=== PATIENT | female | born 1995 | race Caucasian/White ===

== ENCOUNTER 2023-01-07 08:26 | Outpatient (OUT) | payer OTHER, SELFPAY ==
[2023-01-07 09:22] LABS: Estimated Average Glucose 103 mg/dL; Glycohemoglobin A1C 5.2 % (4.5-6.2)
[2023-01-07 09:34] LABS: Basophils Percent Auto 0.5 % (0.2-2.0); Eosinophils Absolute Auto 0.2 10^3/uL (0.0-0.7); Eosinophils Percent Auto 2.4 % (0.9-7.0); Hematocrit 35.3 % (36.0-48.0); Hemoglobin 11.3 g/dL (12.0-16.0); Immature Granulocytes Abs Auto 0.02 10^3/uL (0.00-0.03); Immature Granulocytes Pct Auto 0.2 % (0.0-0.5); Lymphocytes Percent Auto 24.4 % (20.5-60.0); Mean Corpuscular Hemoglobin 28.8 pg (26.7-34.0); Mean Corpuscular Volume 89.8 fL (81.0-99.0); Mean Platelet Volume 10.1 fL (9.5-13.5); Monocytes Absolute Auto 0.8 10^3/uL (0.3-0.8); Monocytes Percent Auto 9.4 % (1.7-12.0); Neutrophils Absolute Auto 5.2 10^3/uL (1.4-6.5); Neutrophils Percent Auto 63.1 % (43.0-75.0); Platelet Count 311 10^3/uL (150-450); Red Blood Count 3.93 10^6/uL (4.20-5.40); Red Cell Distribution Width 14.7 % (11.0-15.0); White Blood Count 8.3 10^3/uL (4.0-11.0)
[2023-01-07 09:54] LABS: Alanine Aminotransferase 33 U/L (14-59); Albumin Level 3.7 g/dL (3.4-5.0); Alkaline Phosphatase 98 U/L (46-116); Anion Gap 13.6; Aspartate Amino Transferase 21 U/L (15-37); BUN Creatinine Ratio 12.7; Bilirubin Total 1.1 mg/dL (0.2-1.0); Calcium 8.5 mg/dL (8.5-10.1); Chloride 105 mmol/L (98-107); Estimated GFR (African America >60 (>=60); Estimated GFR (Non-African Ame >60 (>=60); Globulin 3.7 g/dL; Glucose 91 mg/dL (74-106); Potassium 4.6 mmol/L (3.5-5.1); Sodium 139 mmol/L (136-145); Thyroid Stimulating Hormone 4.867 uIU/mL (0.358-3.740); Total Protein 7.4 g/dL (6.4-8.2)
[2023-01-07 10:10] LABS: Free T4 0.86 ng/dL (0.76-1.46)
== END 2023-01-07 08:27 | disposition home or self-care (01) ==
LOC: LAB 08:31
PROVIDERS: PCP Family Medicine; Visit Provider Family Medicine
DX: R53.83 Other fatigue (principal); E03.9 Hypothyroidism, unspecified; R73.09 Other abnormal glucose
CPT/HCPCS: 36415; 80053; 83036; 84439; 84443; 85025

== ENCOUNTER 2023-04-15 13:40 | Outpatient (OUT) | payer OTHER, SELFPAY ==
[2023-04-15 14:36] LABS: Free T4 1.43 ng/dL (0.76-1.46)
[2023-04-15 14:41] LABS: Thyroid Stimulating Hormone 0.096 uIU/mL (0.358-3.740)
== END 2023-04-15 13:41 | disposition home or self-care (01) ==
PROVIDERS: PCP Family Medicine; Visit Provider Family Medicine
DX: R53.83 Other fatigue (principal); E03.9 Hypothyroidism, unspecified; R73.09 Other abnormal glucose
CPT/HCPCS: 36415; 80053; 83036; 84439; 84443

== ENCOUNTER 2023-04-19 16:58 | Outpatient (OUT) | payer OTHER, SELFPAY ==
--- NOTE | 2023-04-19 17:01 | US_ITS ---
The [address] [address] Patient Name: FARHAD BEY MRN: [id number] date: 1995 Sex: F Assigned Patient Location: [place] Current Patient Location: Accession/Order Number: [id number] Exam Date: 04/19/2023 17:10 Report Date: 04/20/2023 07:30 At the request of: YAHIR FENG Procedure: US thyroid EXAMINATION: US thyroid HISTORY: OTHER SOFT TISSUE SPECIFIED DISORDERS M79.89 COMPARISON: No relevant comparison available. TECHNIQUE: Sonographic images of the thyroid gland were obtained. FINDINGS: The right thyroid lobe is normal in size mildly lobular in contour with heterogeneous echotexture. No focal nodules. The right thyroid lobe measures 4.5-1 0.1 x 1.5 cm. The thyroid isthmus measures 2.6 mm, heterogeneous, no focal nodule. The left thyroid lobe measures 3.6 x 1.3 x 1.1 cm. Heterogeneous echotexture with 2 focal nodules, one nodule over 5 mm. Nodule 1:0.9 x 0.8 x 0.8 cm. Solid, hypoechoic, wide, smooth margins, no calcifications. TR 4 In the region of the patient's palpable abnormality is a normal size normal morphology submandibular lymph node measuring 3.0 x 0.5 x 1.6 cm. US/US thyroid IMPRESSION: Normal size normal morphology lymph node corresponding to the patient's palpable abnormality Heterogeneous thyroid gland with 2 left thyroid subcentimeter TR 4 nodules TI-RADS: The [employer] TI-RADS committee's white paper recommendations for thyroid lesions classified as TR4 (moderately suspicious) are listed below: > 1.0 cm. Follow-up ultrasound in 1, 2, 3, and 5 years. > 1.5 cm. FNA. J. Am Rex Radiol 2017;14:587-595. Electronically authenticated by: ROLANDO JOHNSON Date: 04/20/2023 07:30
== END 2023-04-19 16:59 | disposition home or self-care (01) ==
LOC: US 16:58
PROVIDERS: PCP Family Medicine; Visit Provider Family Medicine
DX: M79.89 Other specified soft tissue disorders (principal)
CPT/HCPCS: 76536

== ENCOUNTER 2023-09-06 15:31 | Outpatient (OUT) | payer OTHER, SELFPAY ==
[2023-09-06 15:53] LABS: Basophils Percent Auto 0.6 % (0.2-2.0); Eosinophils Percent Auto 0.6 % (0.9-7.0); Hematocrit 36.2 % (36.0-48.0); Hemoglobin 11.6 g/dL (12.0-16.0); Immature Granulocytes Abs Auto 0.01 10^3/uL (0.00-0.03); Immature Granulocytes Pct Auto 0.2 % (0.0-0.5); Lymphocytes Absolute Auto 1.8 10^3/uL (1.2-3.8); Lymphocytes Percent Auto 38.8 % (20.5-60.0); Mean Corpuscular Hemoglobin 27.8 pg (26.7-34.0); Mean Corpuscular Volume 86.6 fL (81.0-99.0); Mean Platelet Volume 10.4 fL (9.5-13.5); Monocytes Absolute Auto 0.9 10^3/uL (0.3-0.8); Monocytes Percent Auto 18.2 % (1.7-12.0); Neutrophils Absolute Auto 1.9 10^3/uL (1.4-6.5); Neutrophils Percent Auto 41.6 % (43.0-75.0); Platelet Count 264 10^3/uL (150-450); Red Blood Count 4.18 10^6/uL (4.20-5.40); Red Cell Distribution Width 14.4 % (11.0-15.0); White Blood Count 4.7 10^3/uL (4.0-11.0)
[2023-09-06 16:21] LABS: Estimated Average Glucose 103 mg/dL; Glycohemoglobin A1C 5.2 % (4.5-6.2)
[2023-09-06 16:32] LABS: Free T4 2.25 ng/dL (0.76-1.46)
[2023-09-06 16:36] LABS: Alanine Aminotransferase 30 U/L (14-59); Albumin Level 3.5 g/dL (3.4-5.0); Alkaline Phosphatase 85 U/L (46-116); Anion Gap 13.6; Aspartate Amino Transferase 30 U/L (15-37); BUN Creatinine Ratio 13.8; Bilirubin Total 0.6 mg/dL (0.2-1.0); Calcium 8.7 mg/dL (8.5-10.1); Carbon Dioxide 24.8 mmol/L (21.0-32.0); Chloride 103 mmol/L (98-107); Estimated GFR (African America >60 (>=60); Estimated GFR (Non-African Ame >60 (>=60); Free T3 4.46 pg/mL (2.18-3.98); Globulin 3.5 g/dL; Glucose 91 mg/dL (74-106); Potassium 3.4 mmol/L (3.5-5.1); Sodium 138 mmol/L (136-145); Thyroid Stimulating Hormone 0.025 uIU/mL (0.358-3.740)
== END 2023-09-06 15:32 | disposition home or self-care (01) ==
LOC: LAB 15:31
PROVIDERS: PCP Family Medicine; Visit Provider Family Medicine
DX: R42 Dizziness and giddiness (principal); R53.83 Other fatigue; L65.9 Nonscarring hair loss, unspecified
CPT/HCPCS: 36415; 80053; 83036; 84439; 84443; 84481; 85025

== ENCOUNTER 2023-10-27 08:40 | Outpatient (OUT) | payer OTHER, SELFPAY ==
[2023-10-27 09:13] LABS: Basophils Percent Auto 0.5 % (0.2-2.0); Eosinophils Absolute Auto 0.1 10^3/uL (0.0-0.7); Eosinophils Percent Auto 1.2 % (0.9-7.0); Hematocrit 33.3 % (36.0-48.0); Hemoglobin 10.6 g/dL (12.0-16.0); Immature Granulocytes Abs Auto 0.01 10^3/uL (0.00-0.03); Immature Granulocytes Pct Auto 0.2 % (0.0-0.5); Lymphocytes Absolute Auto 1.4 10^3/uL (1.2-3.8); Lymphocytes Percent Auto 21.2 % (20.5-60.0); Mean Corpuscular HGB Conc 31.8 g/dL (29.9-35.2); Mean Corpuscular Hemoglobin 27.7 pg (26.7-34.0); Mean Corpuscular Volume 87.2 fL (81.0-99.0); Mean Platelet Volume 10.7 fL (9.5-13.5); Monocytes Absolute Auto 0.8 10^3/uL (0.3-0.8); Monocytes Percent Auto 12.4 % (1.7-12.0); Neutrophils Absolute Auto 4.3 10^3/uL (1.4-6.5); Neutrophils Percent Auto 64.5 % (43.0-75.0); Platelet Count 241 10^3/uL (150-450); Red Blood Count 3.82 10^6/uL (4.20-5.40); Red Cell Distribution Width 15.7 % (11.0-15.0); White Blood Count 6.6 10^3/uL (4.0-11.0)
[2023-10-27 10:42] LABS: Estimated Average Glucose 100 mg/dL; Glycohemoglobin A1C 5.1 % (4.5-6.2)
[2023-10-27 10:58] LABS: Free T4 0.98 ng/dL (0.76-1.46)
[2023-10-27 11:11] LABS: Alanine Aminotransferase 25 U/L (14-59); Albumin Globulin Ratio 0.9; Albumin Level 3.3 g/dL (3.4-5.0); Alkaline Phosphatase 95 U/L (46-116); Anion Gap 12.2; Aspartate Amino Transferase 21 U/L (15-37); Bilirubin Total 0.7 mg/dL (0.2-1.0); Calcium 8.6 mg/dL (8.5-10.1); Carbon Dioxide 25.7 mmol/L (21.0-32.0); Chloride 106 mmol/L (98-107); Estimated GFR (African America >60 (>=60); Estimated GFR (Non-African Ame >60 (>=60); Globulin 3.8 g/dL; Glucose 89 mg/dL (74-106); Phosphorus 4.2 mg/dL (2.6-4.7); Potassium 3.9 mmol/L (3.5-5.1); Sodium 140 mmol/L (136-145); Total Protein 7.1 g/dL (6.4-8.2)
== END 2023-10-27 08:41 | disposition home or self-care (01) ==
LOC: LAB 08:42
PROVIDERS: PCP Family Medicine; Visit Provider Family Medicine
DX: R53.83 Other fatigue (principal); D64.9 Anemia, unspecified; E03.9 Hypothyroidism, unspecified
CPT/HCPCS: 36415; 80053; 82306; 82607; 82728; 82746; 83036; 83540; 83735; 84100; 84439; 84443; 85025

== ENCOUNTER 2023-12-07 20:39 | Outpatient (OUT) | payer OTHER, SELFPAY ==
--- OUTSIDE RECORDS SUMMARY | 2023-12-07 20:52 | XMS_ITS ---
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 0.0-0.7 [facility] Comment on above: Performed By: #### F ERR, IRON, B12FOL, VITAD #### [facility] [address] [place] [address] Dr. Mishel Shine Eosinophils/100 WBC (Bld) 1.1 % Normal 0.9-7.0 [facility] Comment on above: Performed By: #### F ERR, IRON, B12FOL, VITAD #### [facility] [address] [place] [address] Dr. Mishel Shine Erythrocyte distribution width (RBC) [Ratio] 13.2 % Normal 11.0-15.0 [facility] Comment on above: Performed By: #### F ERR, IRON, B12FOL, VITAD #### [facility] [address] [place] [address] Dr. Mishel Shine Hematocrit (Bld) [Volume fraction] 34.7 % Critically low 36.0-48.0 [facility] Comment on above: Performed By: #### F ERR, IRON, B12FOL, VITAD #### [facility] [address] [place] [address] Dr. Mishel Shine Hemoglobin (Bld) [Mass/Vol] 12.0 g/dL Normal 12.0-16.0 [facility] Comment on above: Performed By: #### F ERR, IRON, B12FOL, VITAD #### [facility] [address] [place] [address] Dr. Mishel Shine IG # 0.04 10e3/ul Critically high 0.00-0.03 [facility] Comment on above: Performed By: #### F ERR, IRON, B12FOL, VITAD #### [facility] [address] [place] [address] Dr. Mishel Shine IG % 0.4 % Normal 0.0-0.5 [facility] Comment on above: Performed By: #### F ERR, IRON, B12FOL, VITAD #### [facility] [address] [place] [address] Dr. Mishel Shine LYMPH # 2.4 103/ul Normal 1.2-3.8 [facility] Comment on above: Performed By: #### F ERR, IRON, B12FOL, VITAD #### [facility] [address] [place] [address] Dr. Mishel Shine Lymphocytes/100 WBC (Bld) 26.3 % Normal 20.5-60.0 [facility] Comment on above: Performed By: #### F ERR, IRON, B12FOL, VITAD #### [facility] [address] [place] [address] Dr. Mishel Shine MANUAL DIFF REQ NO Normal [facility] Comment on above: Performed By: #### F ERR, IRON, B12FOL, VITAD #### [facility] [address] [place] [address] Dr. Mishel Shine MCH (RBC) [Entitic mass] 29.9 pg Normal 26.7-34.0 [facility] Comment on above: Performed By: #### F ERR, IRON, B12FOL, VITAD #### [facility] [address] [place] [address] Dr. Mishel Shine MCHC (RBC) [Mass/Vol] 34.6 g/dL Normal 29.9-35.2 [facility] Comment on above: Performed By: #### F ERR, IRON, B12FOL, VITAD #### [facility] [address] [place] [address] Dr. Mishel Shine MCV (RBC) [Entitic vol] 86.5 fL Normal 81.0-99.0 [facility] Comment on above: Performed By: #### F ERR, IRON, B12FOL, VITAD #### [facility] [address] [place] [address] Dr. Mishel Shine MONO # 0.7 103/ul Normal 0.3-0.8 [facility] Comment on above: Performed By: #### F ERR, IRON, B12FOL, VITAD #### [facility] [address] [place] [address] Dr. Mishel Shine Monocytes/100 WBC (Bld) 7.9 % Normal 1.7-12.0 [facility] Comment on above: Performed By: #### F ERR, IRON, B12FOL, VITAD #### [facility] [address] [place] [address] Dr. Mishel Shine NEUT # 5.9 103/ul Normal 1.4-6.5 [facility] Comment on above: Performed By: #### F ERR, IRON, B12FOL, VITAD #### [facility] [address] [place] [address] Dr. iMshel Shine Neutrophils/100 WBC (Bld) 64.0 % Normal 43.0-75.0 [facility] Comment on above: Performed By: #### F ERR, IRON, B12FOL, VITAD #### [facility] [address] [place] [address] Dr. Mishel Shine Platelet mean volume (Bld) [Entitic vol] 10.2 fL Normal 9.5-13.5 [facility] Comment on above: Performed By: #### F ERR, IRON, B12FOL, VITAD #### [facility] [address] [place] [address] Dr. Mishel Shine PLT 280 103/ul Normal 150-450 [facility] Comment on above: Performed By: #### F ERR, IRON, B12FOL, VITAD #### [facility] [address] [place] [address] Dr. Mishel Shine RBC 4.01 106/ul Critically low 4.20-5.40 [facility] Comment on above: Performed By: #### F ERR, IRON, B12FOL, VITAD #### [facility] [address] [place] [address] Dr. Mishel Shine WBC 9.3 103/ul Normal 4.0-11.0 [facility] Comment on above: Performed By: #### F ERR, IRON, B12FOL, VITAD #### [facility] [address] [place] [address] Dr. Mishel Shine FERRITINon 07-12-2022 Ferritin [Mass/Vol] 51.0 ng/mL Normal 6.2-137.0 [facility] Comment on above: Performed By: #### F ERR, IRON, B12FOL, VITAD #### [facility] [address] [place] [address] Dr. Mishel Shine FREE THYROXINE INDEX T7on FTI 2.92 Normal 1.30-4.50 [facility] Comment on above: Performed By: #### T SH, CMP, T7, LIPID #### [facility] [address] [place] [address] Dr. Mishel Shine T3U 37.0 % Normal 30.0-39.0 [facility] Comment on above: Performed By: #### T SH, CMP, T7, LIPID #### [facility] [address] [address] [address] Mishel Shine T4 [Mass/Vol] 7.90 ug/dL Normal 4.80-13.90 [facility] Comment on above: Performed By: #### T SH, CMP, T7, LIPID #### [facility] [address] [address] [address] Mishel Shine GLYCOHEMOGLOBIN A1Con 2022 ADA RECOMMENDATION SEE BELOW Normal [facility] Comment on above: Result Comment: ADA RECOMMENDED LIMIT 4.0 - 6.0 ADA THERAPEUTIC TARGET < 7.0 ACTION SUGGESTED > 7.0 Performed By: #### F ERR, IRON, B12FOL, VITAD #### [facility] [address] [place] [address] Dr. Mishel Shine Glucose [Mass/Vol] 108 mg/dL Normal [facility] Comment on above: Performed By: #### F ERR, IRON, B12FOL, VITAD #### [facility] [address] [place] [address] Dr. Mishel Shine HbA1c (Bld) [Mass fraction] 5.4 % Normal 4.5-6.2 [facility] Comment on above: Performed By: #### F ERR, IRON, B12FOL, VITAD #### [facility] [address] [place] [address] Dr. Mishel Shine IRONon 07-12-2022 Iron [Mass/Vol] 172.0 ug/dL Critically high 50.0-170.0 [facility] Comment on above: Performed By: #### F ERR, IRON, B12FOL, VITAD #### [facility] [address] [place] [address] Dr. Mishel Shine LIPID PROFILEon 07-12-2022 CHOL-HDL RATIO NORM SEE BELOW Normal [facility] Comment on above: Result Comment: 3.3 - 4.4 LOW RISK 4.4 - 7.1 AVERAGE RISK 7.1 - 11.0 MODERATE RISK >11.0 HIGH RISK Performed By: #### T SH, CMP, T7, LIPID #### [facility] [address] [place] [address] Dr. Mishel Shine Cholesterol [Mass/Vol] 156 mg/dL Normal <=200 [facility] Comment on above: Performed By: #### T SH, CMP, T7, LIPID #### [facility] [address] [address] [address] Mishel Shine Cholesterol in HDL [Mass/Vol] 61 mg/dL Critically high 40-60 [facility] Comment on above: Performed By: #### T SH, CMP, T7, LIPID #### [facility] [address] [address] [address] Mishel Shine Cholesterol in LDL [Mass/Vol] 84.4 mg/dL Normal [facility] Comment on above: Performed By: #### T SH, CMP, T7, LIPID #### [facility] [address] [address] [address] Mishel Shine Cholesterol.total/Chol esterol in HDL [Mass ratio] 2.6 {ratio} Normal [facility] Comment on above: Performed By: #### T SH, CMP, T7, LIPID #### [facility] [address] [address] [address] Mishel Shine HDL NORMAL > or = 60 mg/dl - LOW CARDIOVASCULAR RISK <40 mg/dl - HIGH CARDIOVASCULAR RISK Normal [facility] Comment on above: Performed By: #### T SH, CMP, T7, LIPID #### [facility] [address] [address] [address] Mishel Shine LDL CALC NORMAL SEE BELOW Normal [facility] Comment on above: Result Comment: <100 mg/dl OPTIMAL 100 - 129 mg/dl NEAR OR ABOVE OPTIMAL 130 - 159 mg/dl BORDERLINE HIGH 160 - 189 mg/dl HIGH >190 mg/dl VERY HIGH Performed By: #### T SH, CMP, T7, LIPID #### [facility] [address] [address] [address] Mishel Shine Triglyceride [Mass/Vol] 53 mg/dL Normal <=150 [facility] Comment on above: Performed By: #### T SH, CMP, T7, LIPID #### [facility] [address] [address] [address] Mishel Shine VLDL CALC 10.6 mg/dL Normal [facility] Comment on above: Performed By: #### T SH, CMP, T7, LIPID #### [facility] [address] [address] [address] Mishel Shine PROF 14(COMP METB)on 023 Albumin [Mass/Vol] 3.7 g/dL Normal 3.4-5.0 [facility] Comment on above: Performed By: #### T SH, CMP, T7, LIPID #### [facility] [address] [address] [address] Mishel Shine Albumin/Globulin [Mass ratio] 1.0 {ratio} Normal [facility] Comment on above: Performed By: #### T SH, CMP, T7, LIPID #### [facility] [address] [place] [address] Dr. Mishel Shine ALP [Catalytic activity/Vol] 108 U/L Normal 46-116 [facility] Comment on above: Performed By: #### T SH, CMP, T7, LIPID #### [facility] [address] [place] [address] Dr. Mishel Shine ALT [Catalytic activity/Vol] 26 U/L Normal 14-59 [facility] Comment on above: Performed By: #### T SH, CMP, T7, LIPID #### [facility] [address] [address] [address] Mishel Shine Anion gap [Moles/Vol] 13.1 mmol/L Normal [facility] Comment on above: Performed By: #### T SH, CMP, T7, LIPID #### [facility] [address] [address] [address] Mishel Shine AST [Catalytic activity/Vol] 21 U/L Normal 15-37 [facility] Comment on above: Performed By: #### T SH, CMP, T7, LIPID #### [facility] [address] [address] [address] Mishel Shine Bilirubin [Mass/Vol] 1.6 mg/dL Critically high 0.2-1.0 [facility] Comment on above: Performed By: #### T SH, CMP, T7, LIPID #### [facility] [address] [address] [address] Mishel Shine Calcium [Mass/Vol] 9.0 mg/dL Normal 8.5-10.1 [facility] Comment on above: Performed By: #### T SH, CMP, T7, LIPID #### [facility] [address] [address] [address] Mishel Shine Chloride [Moles/Vol] 103 mmol/L Normal 98-107 [facility] Comment on above: Performed By: #### T SH, CMP, T7, LIPID #### [facility] [address] [place] [address] Dr. Mishel Shine CO2 [Moles/Vol] 26.6 mmol/L Normal 21.0-32.0 [facility] Comment on above: Performed By: #### T SH, CMP, T7, LIPID #### [facility] [address] [place] [address] Dr. Mishel Shine Creatinine [Mass/Vol] 0.54 mg/dL Critically low 0.55-1.02 [facility] Comment on above: Performed By: #### T SH, CMP, T7, LIPID #### [facility] [address] [place] [address] Dr. Mishel Shine EGFR-AF ARGENTINE >60 Normal >=60 [facility] Comment on above: Performed By: #### T SH, CMP, T7, LIPID #### [facility] [address] [place] [address] Dr. Mishel Shine EGFR-NON AF ARGENTINE >60 Normal >=60 [facility] Comment on above: Performed By: #### T SH, CMP, T7, LIPID #### [facility] [address] [place] [address] Dr. Mishel Shine Globulin (S) [Mass/Vol] 3.7 g/dL Normal [facility] Comment on above: Performed By: #### T SH, CMP, T7, LIPID #### [facility] [address] [place] [address] Dr. Mishel Shine Glucose [Mass/Vol] 90 mg/dL Normal 74-106 [facility] Comment on above: Performed By: #### T SH, CMP, T7, LIPID #### [facility] [address] [place] [address] Dr. Mishel Shine Potassium [Moles/Vol] 3.7 mmol/L Normal 3.5-5.1 [facility] Comment on above: Performed By: #### T SH, CMP, T7, LIPID #### [facility] [address] [place] [address] Dr. Mishel Shine Protein [Mass/Vol] 7.4 g/dL Normal 6.4-8.2 [facility] Comment on above: Performed By: #### T SH, CMP, T7, LIPID #### [facility] [address] [place] [address] Dr. Mishel Shine Sodium [Moles/Vol] 139 mmol/L Normal 136-145 [facility] Comment on above: Performed By: #### T SH, CMP, T7, LIPID #### [facility] [address] [place] [address] Dr. Mishel Shine Urea nitrogen [Mass/Vol] 12.0 mg/dL Normal 7.0-18.0 [facility] Comment on above: Performed By: #### T SH, CMP, T7, LIPID #### [facility] [address] [place] [address] Dr. Mishel Shine Urea nitrogen/Creatinine [Mass ratio] 22.2 mg/mg Normal [facility] Comment on above: Performed By: #### T SH, CMP, T7, LIPID #### [facility] [address] [place] [address] Dr. Mishel Shine TSHon 07-12-2022 TSH 0.484 uIU/mL Normal 0.358-3.740 [facility] Comment on above: Performed By: #### T SH, CMP, T7, LIPID #### [facility] [address] [place] [address] Dr. Mishel Shine VIT B12 AND FOLATEon 023 Cobalamin (Vitamin B12) [Mass/Vol] 404.0 pg/mL Normal 193.0-986.0 [facility] Comment on above: Performed By: #### F ERR, IRON, B12FOL, VITAD #### [facility] [address] [place] [address] Dr. Mishel Shine FOLATE 15.00 ng/mL Normal 8.60-58.90 [facility] Comment on above: Performed By: #### F ERR, IRON, B12FOL, VITAD #### [facility] [address] [place] [address] Dr. Mishel Shine VITAMIN D 25 OHon 07-12-2022 VIT D 25-OH 32.0 ng/mL Normal [facility] Comment on above: Performed By: #### F ERR, IRON, B12FOL, VITAD #### [facility] [address] [place] [address] Dr. Mishel Shine VIT D RANGES SEE BELOW Normal [facility] Comment on above: Result Comment: <20 ng/mL Vit D deficient 20 - <30 ng/mL Vit D insufficient 30 - 100 ng/mL Vit D sufficient >100 ng/mL Potential Toxicity Performed By: #### F ERR, IRON, B12FOL, VITAD #### [facility] [address] [place] [address] Dr. Mishel Shine Covid-19 PCR (CVDTB)on SARS-CoV-2 (COVID-19) RNA WALLY+probe Ql (Unsp spec) Not detected Normal NOT DETECTED [facility] Comment on above: Result Comment: This test is not yet approved or cleared by the [place] FDA. When there are no FDA-approved or cleared tests available, and other criteria are met, FDA can make tests available under an emergency access mechanism called an Emergency Use Authorization (EUA). The EUA for this test is supported by the [place] of Health and Human Service's (HHS's) declaration that circumstances exist to justify the emergency use of in vitro diagnostics for the detection and/or diagnosis of the virus that causes COVID-19. This EUA will remain in effect (meaning this test can be used) for the duration of the COVID-19 declaration justifying emergency of IVDs, unless it is terminated or revoked by FDA (after which the test may no longer be used). When diagnostic testing is negative, the possibility of a false negative should be considered in the context of a patient's recent exposures and the presence of clinical signs and symptoms consistent with SARS-CoV-2. Performed By: #### F ERR, IRON, B12FOL, VITAD #### [facility] [address] [place] [address] Dr. Mishel Shine INFLUENZA A AND B AGon 06-20 INFLUANEGH SEE BELOW Normal [facility] Comment on above: Result Comment: Nega tive for Flu A protein angiten. Infection due to Flu A cannot be ruled out. Flu A angiten in the sample may be below the detection limit of the test. Performed By: #### F ERR, IRON, B12FOL, VITAD #### [facility] [address] [place] [address] Dr. Mishel Shine INFLUBNEGH SEE BELOW Normal [facility] Comment on above: Result Comment: Nega tive for Flu B protein antigen. Infection due to Flu B cannot be ruled out. Flu B antigen in the sample may be below the detection limit of the test. Performed By: #### F ERR, IRON, B12FOL, VITAD #### [facility] [address] [place] [address] Dr. Mishel Shine INFLUENZA A AG Negative Normal NEGATIVE SEE COMMENT [facility] Comment on above: Performed By: #### F ERR, IRON, B12FOL, VITAD #### [facility] [address] [place] [address] Dr. Mishel Shine INFLUENZA B AG Negative Normal NEGATIVE SEE COMMENT [facility] Comment on above: Performed By: #### F ERR, IRON, B12FOL, VITAD #### [facility] [address] [place] [address] Dr. Mishel Shine TROPONIN, HIGH SENSITIVITYon 06-20-2022 HSTROP <4.0 Normal 4.0-51.3 [facility] Comment on above: Result Comment: CUT- OFF POINTS HAVE BEEN ESTABLISHED BASED ON THE FOURTH UNIVERSAL DEFINITIONS OF MYOCARDIAL INFARCTION. THE UPPER REFERENCE LIMIT (URL) OF TROPONIN, DEFINED THE 99TH PERCENTILE OF cTnI DISTRIBUTION IN A REFERENCE POPULATION, HAS BEEN CONFIRMED THE DECISION THRESHOLD FOR NC DIAGNOSIS. Performed By: #### F ERR, IRON, B12FOL, VITAD #### [facility] [address] [place], [place] [address] Dr. Mishel Shine XR CHEST 1 Von 06-20-2022 XR CHEST 1 V EXAMINATION: XR CHEST 1 V HISTORY: Cough COMPARISON: None. TECHNIQUE: Portable chest FINDINGS: The lung parenchyma is free of consolidation or infiltrate. No pneumothorax or pleural effusion. The cardiac, mediastinal and hilar contours are normal. The visualized osseous structures exhibit no gross abnormality. IMPRESSION: Normal chest x-ray Electronically authenticated by: ROLANDO ANSARI Date: 2022-06-20 21:08 Normal [facility] QuantiFERON TBon 05-14-2019 Quanti Jovanny minus NIL 9.61 IU/mL Normal [facility] Comment on above: Performed By: #### A QF #### [facility] [address] [place] [address] Hand Painter: Kemal Lainez MD Quanti TB Gold Plus Negative Normal [facility] Comment on above: Result Comment: (NOT E) Interpretive Data: Quantiferon TB Gold Plus Interferon gamma release is measured for specimens from each of the four collection tubes. A qualitative result (Negative, Positive, or Indeterminate) is based on interpretation of the four values, NIL, MITOGEN minus NIL (MITOGEN-NIL), TB1 minus NIL (TB1-NIL), and TB2 minus NIL (TB2-NIL). The NIL value represents nonspecific reactivity produced by the patient specimen. The MITOGEN-NIL value serves as the positive control for the patient specimen, demonstrating successful lymphocyte activity. The TB1-NIL tube specifically detects CD4+ lymphocyte reactivity, specifically stimulated by the TB1 antigens. The TB2-NIL tube detects both CD4+ and CD8+ lymphocyte reactivity, stimulated by TB2 antigens. An overall Negative result does not completely rule out TB infection. A false-positive result in the absence of other clinical evidence of TB infection is not uncommon. Refer to: Updated Guidelines for Using Interferon Gamma Release Assays to Detect Mycobacterium tuberculosis Infection --- [place], 2010 (http://www.cdc.gov/mmwr/preview/mmwrhtml/im7422u6.htm), for more information concerning test performance in low-prevalence populations and use in occupational screening. Performed By: #### A QF #### [facility] [address] [place] [address] Hand Painter: Kemal Lainez MD Quanti TB1 minus NIL 0.06 IU/mL Normal 0.00-0.34 [facility] Comment on above: Performed By: #### A QF #### [facility] [address] [place] [address] Hand Painter: Kemal Lainez MD Quanti TB2 minus NIL 0.10 IU/mL Normal 0.00-0.34 [facility] Comment on above: Performed By: #### A QF #### [address] [address] Hand Painter: Kemal Lainez MD QuantiFERON NIL 0.06 IU/mL Normal [facility] Comment on above: Result Comment: (NOT E) Performed by [employer], [address] [place] [address] [id number] [email or web address], Kemal Lainez MD, Lab. Director Performed By: #### A QF #### [facility] [address] [place] [address] Hand Painter: Kemal Lainez MD Measles IgG-[facility] 8 Measles (Rubeola) IgG Ab-Ne[place] Positive Normal [facility] Comment on above: Result Comment: Resu lts suggest response to immunization orprior exposure to the virus. REFERENCE VALUE Vaccinated: Positive (>=1.1 AI)Unvaccinated: Negative (<=0.8 AI) Performed By: #### C [id number] ####[facility] [id number] [place] [address] Measles IgG Ab Index-Neola 3.2 [facility] Comment on above: Result Comment: Test Performed by:[facility] - [address] [address] Performed By: #### C [id number] ####[facility] [place] [address] VZ IgG-[facility] 03-23-2018 Varicella IgG Antibody Index-Neola 2.7 [facility] Comment on above: Result Comment: Test Performed by:[facility] - [address] [address] Performed By: #### V ZPG ####[facility] [place] [address] Varicella-Zoster IgG Antibody-[place] Positive [facility] Comment on above: Result Comment: Resu lts suggest response to immunization orprior exposure to the virus. REFERENCE VALUE Vaccinated: Positive (>=1.1 AI)Unvaccinated: Negative (<=0.8 AI) Performed By: #### V ZPG ####[address] [address] Hep Bs Abon 03-21-2018 Hep B Surface Antibody Interp Positive [facility] Comment on above: Result Comment: Evelyne ent is considered to be immune to infection with HBV. Performed By: #### H BSAB ####[address] [address] Rubella IgGon 03-21-2018 Rubella IgG Ab Interp Reactive [facility] Comment on above: Result Comment: The presence of detectable IgG-class antibodies indicates immunity to the rubella virus through prior immunization or exposure. Individuals testing reactive (positive) are considered immune to rubella infection.This result was obtained with the Access Rubella IgG EIA. Despite calibration by means of a reference preparation, values obtained with different cost recorder's assay methods may not be used interchangeably. The magnitude of the reported IgG level CANNOT be correlated to an endpoint titer. Performed By: #### R UB ####[address] [place] [address] Social History Date Type Detail Facility Start: 02-28-2014 Tobacco smoking stat us NHIS Never smoker [place], [place] Start: 02-28-2014 Alcohol intake Current non-dr cloth winder of alcohol (finding) [place], [place] Sex Assigned At Not on file [place], [place] Sex Assigned At [facility] Tobacco [facility] Comment on above: Denies. Tobacco smoking status No Smokin g Status Entered [facility] Vital Signs Date Time Vital Sign Value Performing Clinician Facility 10-23-2023 20:30-0400 Diastolic blood pressure 89 mm[Hg] Al Vivian [facility] 10-23-2023 20:30-0400 Heart rate 110 /min Al Vivian [facility] 10-23-2023 20:30-0400 Mean blood pressure 105 mm[Hg] Al Vivian [facility] 10-23-2023 20:30-0400 SaO2% (BldA) [Mass fraction] 99 % Al Vivian [facility] 10-23-2023 20:30-0400 Systolic blood pressure 138 mm[Hg] Al Vivian [facility] 10-23-2023 20:05-0400 Diastolic blood pressure 92 mm[Hg] Al Vivian [facility] 10-23-2023 20:05-0400 Heart rate 126 /min Al Vivian [facility] Comment on above: Result Comment: Pt crying at this point and visibly upset about the circumstances. 10-23-2023 20:05-0400 Mean blood pressure 102 mm[Hg] Al Vivian [facility] 10-23-2023 20:05-0400 SaO2% (BldA) [Mass fraction] 98 % Al Vivian [facility] 10-23-2023 20:05-0400 Systolic blood pressure 123 mm[Hg] Al Vivian [facility] 10-23-2023 19:59-0400 Body temperature 98.24 [degF] Al Vivian [facility] 10-23-2023 19:59-0400 Diastolic blood pressure 76 mm[Hg] Al Vivian [facility] 10-23-2023 19:59-0400 Heart rate 114 /min Al Vivian [facility] 10-23-2023 19:59-0400 Respiratory rate 18 /min Al Vivian [facility] 10-23-2023 19:59-0400 Systolic blood pressure 122 mm[Hg] Al Vivian [facility] 10-23-2023 19:44-0400 Heart rate 117 /min Al Vivian [facility] 10-11-2022 17:40-0400 Body height 162.56 cm Mariposa Le[facility] Other [facility] Other 10-11-2022 17:40-0400 Body mass index (BMI) [Ratio] 28.22 kg/m2 [facility] Le[facility] Other [facility] Other 10-11-2022 17:40-0400 Body temperature 98.7 [degF] [facility] Le[facility] Other [facility] Other 10-11-2022 17:40-0400 Body weight 74.57 kg Mariposa Dupree Other [facility] Other 10-11-2022 17:40-0400 Diastolic blood pressure 79 mm[Hg] Mariposa Dupree Other [facility] Other 10-11-2022 17:40-0400 Respiratory rate 18 /min Mariposa Dupree Other [facility] Other 10-11-2022 17:40-0400 SaO2% (BldA) [Mass fraction] 100 % Mariposa Dupree Other [facility] Other 10-11-2022 17:40-0400 Systolic blood pressure 123 mm[Hg] Mariposa Dupree Other [facility] Other 03-21-2018 21:42-0400 Body surface area Derived from formula 338.0 mIU/mL [facility] Comment on above: Performed By: #### HBSAB ####[place] [address] Functional Status Date Assessment Result Facility 10-23-2023 Functional Status N/A [facility] Discharge instructions 10-23-2023 Note Date & Type Note Facility 10-23-2023 Hospital Discharg e instructions Patient Education 10/23/2023 20:46:23 Head Injury, Adult Head Injury, Adult There are many types of head injuries. Head injuries can be as minor as a small bump, or they can be a serious medical issue. More severe head injuries include: A jarring injury to the brain (concussion). A bruise (contusion) of the brain. This means there is bleeding in the brain that can cause swelling. A cracked skull (skull fracture). Bleeding in the brain that collects, clots, and forms a bump (hematoma). After a head injury, most problems occur within the first 24 hours, but side effects may occur up to 7 10 days after the injury. It is important to watch your condition for any changes. You may need to be observed in the emergency department or urgent care, or you may be admitted to the hospital. What are the causes? There are many possible causes of a head injury. Serious head injuries may be caused by car accidents, bicycle or motorcycle accidents, sports injuries, falls, or being struck by an object. What are the symptoms? Symptoms of a head injury include a contusion, bump, or bleeding at the site of the injury. Other physical symptoms may include: Headache. Nausea or vomiting. Dizziness. Blurred or double vision. Being uncomfortable around bright lights or loud noises. Seizures. Feeling tired. Trouble being awakened. Loss of consciousness. Mental or emotional symptoms may include: Irritability. Confusion and memory problems. Poor attention and concentration. Changes in eating or sleeping habits. Anxiety or depression. How is this diagnosed? This condition can usually be diagnosed based on your symptoms, a description of the injury, and a physical exam. You may also have imaging tests done, such as a CT scan or an MRI. How is this treated? Treatment for this condition depends on the severity and type of injury you have. The main goal of treatment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
== END 2023-12-07 20:40 | disposition home or self-care (01) ==
LOC: SLEEP 20:50
PROVIDERS: PCP Family Medicine; Visit Provider Family Medicine
DX: G47.33 Obstructive sleep apnea (adult) (pediatric) (principal)
CPT/HCPCS: 95805; 95810

== ENCOUNTER 2024-09-27 16:36 | Outpatient (OUT) | payer OTHER, SELFPAY ==
--- NOTE | 2024-09-27 | XR_ITS ---
The [address] [address] Patient Name: FARHAD BEY MRN: [id number] date: 1995 Sex: F Assigned Patient Location: LAB Current Patient Location: LAB Accession/Order Number: [id number] Exam Date: 09/27/2024 20:51 Report Date: 09/27/2024 20:52 At the request of: YAHIR FENG MD Procedure: XR chest 2V PA AND LATERAL CHEST: CLINICAL HISTORY: Dyspnea; R06.00 COMPARISON: 06/20/2022 There is no focal parenchymal consolidation, effusion or pneumothorax. The cardiac, hilar and mediastinal silhouettes are within normal limits. There is no vascular congestion. The visualized bony thorax is intact. XR/XR chest 2V IMPRESSION: NO ACUTE CARDIOPULMONARY ABNORMALITY. Impression dictated by: Arleth Morel M.D.09/27/2024 8:52 PM Dictation Location: [place] [address] Electronically authenticated by: [id number] Y Date: 09/27/2024 20:52
[2024-09-27 16:50] LABS: Basophils Absolute Auto 0.1 10^3/uL (0.0-0.1); Basophils Percent Auto 0.7 % (0.2-2.0); Eosinophils Absolute Auto 0.1 10^3/uL (0.0-0.7); Hematocrit 39.6 % (36.0-48.0); Hemoglobin 13.1 g/dL (12.0-16.0); Immature Granulocytes Abs Auto 0.01 10^3/uL (0.00-0.03); Immature Granulocytes Pct Auto 0.1 % (0.0-0.5); Lymphocytes Absolute Auto 2.5 10^3/uL (1.2-3.8); Mean Corpuscular HGB Conc 33.1 g/dL (29.9-35.2); Mean Corpuscular Hemoglobin 31.3 pg (26.7-34.0); Mean Corpuscular Volume 94.5 fL (81.0-99.0); Mean Platelet Volume 9.7 fL (9.5-13.5); Monocytes Absolute Auto 0.6 10^3/uL (0.3-0.8); Monocytes Percent Auto 8.3 % (1.7-12.0); Neutrophils Absolute Auto 4.4 10^3/uL (1.4-6.5); Neutrophils Percent Auto 56.9 % (43.0-75.0); Platelet Count 321 10^3/uL (150-450); Red Blood Count 4.19 10^6/uL (4.20-5.40); Red Cell Distribution Width 12.2 % (11.0-15.0); White Blood Count 7.7 10^3/uL (4.0-11.0)
--- OUTSIDE RECORDS SUMMARY | 2024-09-27 16:52 | XMS_ITS | CCD ---
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 [address] Dr. Mishel Shine EO # 0.1 103/ul Normal 0.0-0.7 [facility] Comment on above: Performed By: #### C BC #### [facility] [address] [place] [address] Dr. Mishel Shine Eosinophils/100 WBC (Bld) 1.4 % Normal 0.9-7.0 [facility] Comment on above: Performed By: #### C BC #### [facility] [address] [place] [address] Dr. Mishel Shine Erythrocyte distribution width (RBC) [Ratio] 13.5 % Normal 11.0-15.0 [facility] Comment on above: Performed By: #### C BC #### [facility] [address] [place] [address] Dr. Mishel Shine Hematocrit (Bld) [Volume fraction] 36.4 % Normal 36.0-48.0 [facility] Comment on above: Performed By: #### C BC #### [facility] [address] [place] [address] Dr. Mishel Shine Hemoglobin (Bld) [Mass/Vol] 12.4 g/dL Normal 12.0-16.0 [facility] Comment on above: Performed By: #### C BC #### [facility] [address] [place] [address] Dr. Mishel Shine IG # 0.03 10e3/ul Normal 0.00-0.03 [facility] Comment on above: Performed By: #### C BC #### [facility] [address] [place] [address] Dr. Mishel Shine IG % 0.3 % Normal 0.0-0.5 [facility] Comment on above: Performed By: #### C BC #### [facility] [address] [place] [address] Dr. Mishel Shine LYMPH # 0.7 103/ul Critically low 1.2-3.8 [facility] Comment on above: Performed By: #### C BC #### [facility] [address] [place] [address] Dr. Mishel Shine Lymphocytes/100 WBC (Bld) 6.4 % Critically low 20.5-60.0 [facility] Comment on above: Performed By: #### C BC #### [facility] [address] [place] [address] Dr. Mishel Shine MANUAL DIFF REQ NO Normal [facility] Comment on above: Performed By: #### C BC #### [facility] [address] [place] [address] Dr. Mishel Shine MCH (RBC) [Entitic mass] 30.5 pg Normal 26.7-34.0 [facility] Comment on above: Performed By: #### C BC #### [facility] [address] [address] [address] Mishel Shine MCHC (RBC) [Mass/Vol] 34.1 g/dL Normal 29.9-35.2 [facility] Comment on above: Performed By: #### C BC #### [facility] [address] [address] [address] Mishel Shine MCV (RBC) [Entitic vol] 89.7 fL Normal 81.0-99.0 [facility] Comment on above: Performed By: #### C BC #### [facility] [address] [address] [address] Mishel Shine MONO # 0.6 103/ul Normal 0.3-0.8 [facility] Comment on above: Performed By: #### C BC #### [facility] [address] [address] [address] Mishel Shine Monocytes/100 WBC (Bld) 6.1 % Normal 1.7-12.0 [facility] Comment on above: Performed By: #### C BC #### [facility] [address] [address] [address] Mishel Shine NEUT # 8.8 103/ul Critically high 1.4-6.5 [facility] Comment on above: Performed By: #### C BC #### [facility] [address] [address] [address] Mishel Shine Neutrophils/100 WBC (Bld) 85.5 % Critically high 43.0-75.0 [facility] Comment on above: Performed By: #### C BC #### [facility] [address] [address] [address] Mishel Shine Platelet mean volume (Bld) [Entitic vol] 10.3 fL Normal 9.5-13.5 [facility] Comment on above: Performed By: #### C BC #### [facility] [address] [address] [address] Mishel Shine PLT 257 103/ul Normal 150-450 [facility] Comment on above: Performed By: #### C BC #### [facility] [address] [place] [address] Dr. Mishel Shine RBC 4.06 106/ul Critically low 4.20-5.40 [facility] Comment on above: Performed By: #### C BC #### [facility] [address] [place] [address] Dr. Mishel Shine WBC 10.2 103/ul Normal 4.0-11.0 [facility] Comment on above: Performed By: #### C BC #### [facility] [address] [place] [address] Dr. Mishel Shine LIPASEon 08-17-2022 Lipase [Catalytic activity/Vol] 28.0 U/L Critically low 73.0-393.0 [facility] Comment on above: Performed By: #### F ERR, IRON, B12FOL, VITAD #### [facility] [address] [place] [address] Dr. Mishel Shine PROF 14(COMP METB)on 023 Albumin [Mass/Vol] 3.6 g/dL Normal 3.4-5.0 [facility] Comment on above: Performed By: #### F ERR, IRON, B12FOL, VITAD #### [facility] [address] [place] [address] Dr. Mishel Shine Albumin/Globulin [Mass ratio] 1.1 {ratio} Normal [facility] Comment on above: Performed By: #### F ERR, IRON, B12FOL, VITAD #### [facility] [address] [place] [address] Dr. Mishel Shine ALP [Catalytic activity/Vol] 110 U/L Normal 46-116 [facility] Comment on above: Performed By: #### F ERR, IRON, B12FOL, VITAD #### [facility] [address] [place] [address] Dr. Mishel Shine ALT [Catalytic activity/Vol] 35 U/L Normal 14-59 [facility] Comment on above: Performed By: #### F ERR, IRON, B12FOL, VITAD #### [facility] [address] [place] [address] Dr. Mishel Shine Anion gap [Moles/Vol] 11.6 mmol/L Normal [facility] Comment on above: Performed By: #### F ERR, IRON, B12FOL, VITAD #### [facility] [address] [place] [address] Dr. Mishel Shine AST [Catalytic activity/Vol] 22 U/L Normal 15-37 [facility] Comment on above: Performed By: #### F ERR, IRON, B12FOL, VITAD #### [facility] [address] [place] [address] Dr. Mishel Shine Bilirubin [Mass/Vol] 1.9 mg/dL Critically high 0.2-1.0 [facility] Comment on above: Performed By: #### F ERR, IRON, B12FOL, VITAD #### [facility] [address] [place] [address] Dr. Mishel Shine Calcium [Mass/Vol] 8.3 mg/dL Critically low 8.5-10.1 [facility] Comment on above: Performed By: #### F ERR, IRON, B12FOL, VITAD #### [facility] [address] [place] [address] Dr. Mishel Shine Chloride [Moles/Vol] 105 mmol/L Normal 98-107 [facility] Comment on above: Performed By: #### F ERR, IRON, B12FOL, VITAD #### [facility] [address] [place] [address] Dr. Mishel Shine CO2 [Moles/Vol] 25.4 mmol/L Normal 21.0-32.0 [facility] Comment on above: Performed By: #### F ERR, IRON, B12FOL, VITAD #### [facility] [address] [place] [address] Dr. Mishel Shine Creatinine [Mass/Vol] 0.52 mg/dL Critically low 0.55-1.02 [facility] Comment on above: Performed By: #### F ERR, IRON, B12FOL, VITAD #### [facility] [address] [place] [address] Dr. Mishel Shine EGFR-AF YEMENI >60 Normal >=60 [facility] Comment on above: Performed By: #### F ERR, IRON, B12FOL, VITAD #### [facility] [address] [place] [address] Dr. Mishel Shine EGFR-NON AF YEMENI >60 Normal >=60 [facility] Comment on above: Performed By: #### F ERR, IRON, B12FOL, VITAD #### [facility] [address] [place] [address] Dr. Mishel Shine Globulin (S) [Mass/Vol] 3.3 g/dL Normal [facility] Comment on above: Performed By: #### F ERR, IRON, B12FOL, VITAD #### [facility] [address] [place] [address] Dr. Mishel Shine Glucose [Mass/Vol] 95 mg/dL Normal 74-106 [facility] Comment on above: Performed By: #### F ERR, IRON, B12FOL, VITAD #### [facility] [address] [place] [address] Dr. Mishel Shine Potassium [Moles/Vol] 4.0 mmol/L Normal 3.5-5.1 [facility] Comment on above: Performed By: #### F ERR, IRON, B12FOL, VITAD #### [facility] [address] [place] [address] Dr. Mishel Shine Protein [Mass/Vol] 6.9 g/dL Normal 6.4-8.2 [facility] Comment on above: Performed By: #### F ERR, IRON, B12FOL, VITAD #### [facility] [address] [place] [address] Dr. Mishel Shine Sodium [Moles/Vol] 138 mmol/L Normal 136-145 [facility] Comment on above: Performed By: #### F ERR, IRON, B12FOL, VITAD #### [facility] [address] [place] [address] Dr. Mishel Shine Urea nitrogen [Mass/Vol] 10.0 mg/dL Normal 7.0-18.0 [facility] Comment on above: Performed By: #### F ERR, IRON, B12FOL, VITAD #### [facility] [address] [place] [address] Dr. Mishel Shine Urea nitrogen/Creatinine [Mass ratio] 19.2 mg/mg Normal [facility] Comment on above: Performed By: #### F ERR, IRON, B12FOL, VITAD #### [facility] [address] [place] [address] Dr. Mishel Shine HEPATITIS C ANTIBODYon 07-23 Hep C Virus Ab <0.1 Normal 0.0-0.9 [facility] Comment on above: Result Comment: Nega tive: [...] Hepatitis C Virus (HCV) RNA, Diagnosis, WALLY ([id number]) and Hepatitis C Virus (HCV) Antibody with reflex to Quantitative Real-time PCR ([id number]). Performed By: #### F ERR, IRON, B12FOL, VITAD #### [facility] [address] [place] [address] Dr. Mishel Shine LIVER PROFILEon 07-21-2022 Albumin [Mass/Vol] 3.7 g/dL Normal 3.4-5.0 [facility] Comment on above: Performed By: #### F ERR, IRON, B12FOL, VITAD #### [facility] [address] [place] [address] Dr. Mishel Shine Albumin/Globulin [Mass ratio] 1.0 {ratio} Normal [facility] Comment on above: Performed By: #### F ERR, IRON, B12FOL, VITAD #### [facility] [address] [place] [address] Dr. Mishel Shine ALP [Catalytic activity/Vol] 88 U/L Normal 46-116 [facility] Comment on above: Performed By: #### F ERR, IRON, B12FOL, VITAD #### [facility] [address] [place] [address] Dr. Mishel Shine ALT [Catalytic activity/Vol] 36 U/L Normal 14-59 [facility] Comment on above: Performed By: #### F ERR, IRON, B12FOL, VITAD #### [facility] [address] [place] [address] Dr. Mishel Shine AST [Catalytic activity/Vol] 30 U/L Normal 15-37 [facility] Comment on above: Performed By: #### F ERR, IRON, B12FOL, VITAD #### [facility] [address] [place] [address] Dr. Mishel Shine BILI, CONJUGATED 0.1 mg/dL Normal 0.0-0.2 [facility] Comment on above: Performed By: #### F ERR, IRON, B12FOL, VITAD #### [facility] [address] [place] [address] Dr. Mishel Shine Bilirubin [Mass/Vol] 0.6 mg/dL Normal 0.2-1.0 [facility] Comment on above: Performed By: #### F ERR, IRON, B12FOL, VITAD #### [facility] [address] [place] [address] Dr. Mishel Shine Globulin (S) [Mass/Vol] 3.7 g/dL Normal [facility] Comment on above: Performed By: #### F ERR, IRON, B12FOL, VITAD #### [facility] [address] [place] [address] Dr. Mishel Shine Protein [Mass/Vol] 7.4 g/dL Normal 6.4-8.2 [facility] Comment on above: Performed By: #### F ERR, IRON, B12FOL, VITAD #### [facility] [address] [place] [address] Dr. Mishel Shine INSULINon 07-14-2022 Insulin 9.2 uIU/mL Normal 2.6-24.9 [facility] Comment on above: Performed By: #### F ERR, IRON, B12FOL, VITAD #### [facility] [address] [place] [address] Dr. Mishel Shine CBC AUTO DIFFon 07-12-2022 BASO # 0.0 103/ul Normal 0.0-0.1 [facility] Comment on above: Performed By: #### F ERR, IRON, B12FOL, VITAD #### [facility] [address] [place] [address] Dr. Mishel Shine Basophils/100 WBC (Bld) 0.3 % Normal 0.2-2.0 [facility] Comment on above: Performed By: #### F ERR, IRON, B12FOL, VITAD #### [facility] [address] [place] [address] Dr. Mishel Shine EO # 0.1 103/ul Normal 0.0-0.7 [facility] Comment on above: Performed By: #### F ERR, IRON, B12FOL, VITAD #### [facility] [address] [place] [address] Dr. Mishel Shine Eosinophils/100 WBC (Bld) 1.1 % Normal 0.9-7.0 [facility] Comment on above: Performed By: #### F ERR, IRON, B12FOL, VITAD #### [facility] [address] [place] [address] Dr. Mishel Shine Erythrocyte distribution width (RBC) [Ratio] 13.2 % Normal 11.0-15.0 [facility] Comment on above: Performed By: #### F ERR, IRON, B12FOL, VITAD #### [facility] [address] [place] [address] Dr. Mishel Shine Hematocrit (Bld) [Volume fraction] 34.7 % Critically low 36.0-48.0 [facility] Comment on above: Performed By: #### F ERR, IRON, B12FOL, VITAD #### [facility] [address] [place] [address] Dr. Mishel Shine Hemoglobin (Bld) [Mass/Vol] 12.0 g/dL Normal 12.0-16.0 [facility] Comment on above: Performed By: #### F ERR, IRON, B12FOL, VITAD #### [facility] [address] [place] [address] Dr. Mishel Shine IG # 0.04 10e3/ul Critically high 0.00-0.03 [facility] Comment on above: Performed By: #### F ERR, IRON, B12FOL, VITAD #### [facility] [address] [place] [address] Dr. Mishel Shine IG % 0.4 % Normal 0.0-0.5 [facility] Comment on above: Performed By: #### F ERR, IRON, B12FOL, VITAD #### [facility] [address] [place] [address] Dr. Mishel Shine LYMPH # 2.4 103/ul Normal 1.2-3.8 [facility] Comment on above: Performed By: #### F ERR, IRON, B12FOL, VITAD #### [facility] [address] [place] [address] Dr. Mishel Shine Lymphocytes/100 WBC (Bld) 26.3 % Normal 20.5-60.0 [facility] Comment on above: Performed By: #### F ERR, IRON, B12FOL, VITAD #### [facility] [address] [place] [address] Dr. Mishel Shine MANUAL DIFF REQ NO Normal [facility] Comment on above: Performed By: #### F ERR, IRON, B12FOL, VITAD #### [facility] [address] [place] [address] Dr. Mishel Shine MCH (RBC) [Entitic mass] 29.9 pg Normal 26.7-34.0 [facility] Comment on above: Performed By: #### F ERR, IRON, B12FOL, VITAD #### [facility] [address] [place] [address] Dr. Mishel Shine MCHC (RBC) [Mass/Vol] 34.6 g/dL Normal 29.9-35.2 [facility] Comment on above: Performed By: #### F ERR, IRON, B12FOL, VITAD #### [facility] [address] [place] [address] Dr. Mishel Shine MCV (RBC) [Entitic vol] 86.5 fL Normal 81.0-99.0 [facility] Comment on above: Performed By: #### F ERR, IRON, B12FOL, VITAD #### [facility] [address] [place] [address] Dr. Mishel Shine MONO # 0.7 103/ul Normal 0.3-0.8 [facility] Comment on above: Performed By: #### F ERR, IRON, B12FOL, VITAD #### [facility] [address] [place] [address] Dr. Mishel Shine Monocytes/100 WBC (Bld) 7.9 % Normal 1.7-12.0 [facility] Comment on above: Performed By: #### F ERR, IRON, B12FOL, VITAD #### [facility] [address] [place] [address] Dr. Mishel Shine NEUT # 5.9 103/ul Normal 1.4-6.5 [facility] Comment on above: Performed By: #### F ERR, IRON, B12FOL, VITAD #### [facility] [address] [place] [address] Dr. Mishel Shine Neutrophils/100 WBC (Bld) 64.0 % Normal 43.0-75.0 [facility] Comment on above: Performed By: #### F ERR, IRON, B12FOL, VITAD #### [facility] [address] [place] [address] Dr. Mishel Shine Platelet mean volume (Bld) [Entitic vol] 10.2 fL Normal 9.5-13.5 [facility] Comment on above: Performed By: #### F ERR, IRON, B12FOL, VITAD #### [facility] [address] [place] [address] Dr. Mishel Shine PLT 280 103/ul Normal 150-450 [facility] Comment on above: Performed By: #### F ERR, IRON, B12FOL, VITAD #### [facility] [address] [address] [address] Mishel Shine RBC 4.01 106/ul Critically low 4.20-5.40 [facility] Comment on above: Performed By: #### F ERR, IRON, B12FOL, VITAD #### [facility] [address] [address] [address] Mishel Shine WBC 9.3 103/ul Normal 4.0-11.0 [facility] Comment on above: Performed By: #### F ERR, IRON, B12FOL, VITAD #### [facility] [address] [address] [address] Mishel Shine FERRITINon 07-12-2022 Ferritin [Mass/Vol] 51.0 ng/mL Normal 6.2-137.0 [facility] Comment on above: Performed By: #### F ERR, IRON, B12FOL, VITAD #### [facility] [address] [place] [address] Dr. Mishel Shine FREE THYROXINE INDEX T7on FTI 2.92 Normal 1.30-4.50 [facility] Comment on above: Performed By: #### T SH, CMP, T7, LIPID #### [facility] [address] [place] [address] Dr. Mishel Shine T3U 37.0 % Normal 30.0-39.0 [facility] Comment on above: Performed By: #### T SH, CMP, T7, LIPID #### [facility] [address] [address] [address] Mishel Shine T4 [Mass/Vol] 7.90 ug/dL Normal 4.80-13.90 [facility] Comment on above: Performed By: #### T SH, CMP, T7, LIPID #### [facility] [address] [place] [address] Dr. Mishel Shine GLYCOHEMOGLOBIN A1Con 2022 ADA RECOMMENDATION SEE BELOW Normal [facility] Comment on above: Result Comment: ADA RECOMMENDED LIMIT 4.0 - 6.0 ADA THERAPEUTIC TARGET < 7.0 ACTION SUGGESTED > 7.0 Performed By: #### F ERR, IRON, B12FOL, VITAD #### [facility] [address] [address] [address] Mishel Shine Glucose [Mass/Vol] 108 mg/dL Normal [facility] Comment on above: Performed By: #### F ERR, IRON, B12FOL, VITAD #### [facility] [address] [place] [address] Dr. Mishel Shine HbA1c (Bld) [Mass fraction] 5.4 % Normal 4.5-6.2 [facility] Comment on above: Performed By: #### F ERR, IRON, B12FOL, VITAD #### [facility] [address] [place] [address] Dr. Mishel Shine IRONon 07-12-2022 Iron [Mass/Vol] 172.0 ug/dL Critically high 50.0-170.0 [facility] Comment on above: Performed By: #### F ERR, IRON, B12FOL, VITAD #### [facility] [address] [place] [address] Dr. Mishel Shine LIPID PROFILEon 07-12-2022 CHOL-HDL RATIO NORM SEE BELOW Normal [facility] Comment on above: Result Comment: 3.3 - 4.4 LOW RISK 4.4 - 7.1 AVERAGE RISK 7.1 - 11.0 MODERATE RISK >11.0 HIGH RISK Performed By: #### T SH, CMP, T7, LIPID #### [facility] [address] [place] [address] Dr. Mishel Shine Cholesterol [Mass/Vol] 156 mg/dL Normal <=[address] [facility] Comment on above: Performed By: #### T SH, CMP, T7, LIPID #### [facility] [address] [place] [address] Dr. Mishel Shine Cholesterol in HDL [Mass/Vol] 61 mg/dL Critically high 40-60 [facility] Comment on above: Performed By: #### T SH, CMP, T7, LIPID #### [facility] [address] [place] [address] Dr. Mishel Shine Cholesterol in LDL [Mass/Vol] 84.4 mg/dL Normal [facility] Comment on above: Performed By: #### T SH, CMP, T7, LIPID #### [facility] [address] [address] [address] Mishel Shine Cholesterol.total/Chol esterol in HDL [Mass ratio] 2.6 {ratio} Normal [facility] Comment on above: Performed By: #### T SH, CMP, T7, LIPID #### [facility] [address] [address] [address] Mishel Shine HDL NORMAL > or = 60 mg/dl - LOW CARDIOVASCULAR RISK <40 mg/dl - HIGH CARDIOVASCULAR RISK Normal [facility] Comment on above: Performed By: #### T SH, CMP, T7, LIPID #### [facility] [address] [place] [address] Dr. Mishel Shine LDL CALC NORMAL SEE BELOW Normal [facility] Comment on above: Result Comment: <100 mg/dl OPTIMAL 100 - 129 mg/dl NEAR OR ABOVE OPTIMAL 130 - 159 mg/dl BORDERLINE HIGH 160 - 189 mg/dl HIGH >190 mg/dl VERY HIGH Performed By: #### T SH, CMP, T7, LIPID #### [facility] [address] [place] [address] Dr. Mishel Shine Triglyceride [Mass/Vol] 53 mg/dL Normal <=150 [facility] Comment on above: Performed By: #### T SH, CMP, T7, LIPID #### [facility] [address] [address] [address] Mishel Shine VLDL CALC 10.6 mg/dL Normal [facility] Comment on above: Performed By: #### T SH, CMP, T7, LIPID #### [facility] [address] [address] [address] Mishel Shine PROF 14(COMP METB)on 023 Albumin [Mass/Vol] 3.7 g/dL Normal 3.4-5.0 [facility] Comment on above: Performed By: #### T SH, CMP, T7, LIPID #### [facility] [address] [place] [address] Dr. Mishel Shine Albumin/Globulin [Mass ratio] 1.0 {ratio} Normal [facility] Comment on above: Performed By: #### T SH, CMP, T7, LIPID #### [facility] [address] [address] [address] Mishel Shine ALP [Catalytic activity/Vol] 108 U/L Normal 46-116 [facility] Comment on above: Performed By: #### T SH, CMP, T7, LIPID #### [facility] [address] [address] [address] Mishel Shine ALT [Catalytic activity/Vol] 26 U/L Normal 14-59 [facility] Comment on above: Performed By: #### T SH, CMP, T7, LIPID #### [facility] [address] [place] [address] Dr. Mishel Shine Anion gap [Moles/Vol] 13.1 mmol/L Normal [facility] Comment on above: Performed By: #### T SH, CMP, T7, LIPID #### [facility] [address] [place] [address] Dr. Mishel Shine AST [Catalytic activity/Vol] 21 U/L Normal 15-37 [facility] Comment on above: Performed By: #### T SH, CMP, T7, LIPID #### [facility] [address] [place] [address] Dr. Mishel Shine Bilirubin [Mass/Vol] 1.6 mg/dL Critically high 0.2-1.0 [facility] Comment on above: Performed By: #### T SH, CMP, T7, LIPID #### [facility] [address] [place] [address] Dr. Mishel Shine Calcium [Mass/Vol] 9.0 mg/dL Normal 8.5-10.1 [facility] Comment on above: Performed By: #### T SH, CMP, T7, LIPID #### [facility] [address] [place] [address] Dr. Mishel Shine Chloride [Moles/Vol] 103 mmol/L Normal 98-107 [facility] Comment on above: Performed By: #### T SH, CMP, T7, LIPID #### [facility] [address] [address] [address] Mishel Shine CO2 [Moles/Vol] 26.6 mmol/L Normal 21.0-32.0 [facility] Comment on above: Performed By: #### T SH, CMP, T7, LIPID #### [facility] [address] [address] [address] Mishel Shine Creatinine [Mass/Vol] 0.54 mg/dL Critically low 0.55-1.02 [facility] Comment on above: Performed By: #### T SH, CMP, T7, LIPID #### [facility] [address] [address] [address] Mishel Shine EGFR-AF YEMENI >60 Normal >=60 [facility] Comment on above: Performed By: #### T SH, CMP, T7, LIPID #### [facility] [address] [address] [address] Mishel Shine EGFR-NON AF YEMENI >60 Normal >=60 [facility] Comment on above: Performed By: #### T SH, CMP, T7, LIPID #### [facility] [address] [address] [address] Mishel Shine Globulin (S) [Mass/Vol] 3.7 g/dL Normal [facility] Comment on above: Performed By: #### T SH, CMP, T7, LIPID #### [facility] [address] [address] [address] Mishel Shine Glucose [Mass/Vol] 90 mg/dL Normal 74-106 [facility] Comment on above: Performed By: #### T SH, CMP, T7, LIPID #### [facility] [address] [address] [address] Mishel Shine Potassium [Moles/Vol] 3.7 mmol/L Normal 3.5-5.1 [facility] Comment on above: Performed By: #### T SH, CMP, T7, LIPID #### [facility] [address] [address] [address] Mishel Shine Protein [Mass/Vol] 7.4 g/dL Normal 6.4-8.2 [facility] Comment on above: Performed By: #### T SH, CMP, T7, LIPID #### [facility] [address] [place] [address] Dr. Mishel Shine Sodium [Moles/Vol] 139 mmol/L Normal 136-145 [facility] Comment on above: Performed By: #### T SH, CMP, T7, LIPID #### [facility] [address] [place] [address] Dr. Mishel Shine Urea nitrogen [Mass/Vol] 12.0 mg/dL Normal 7.0-18.0 [facility] Comment on above: Performed By: #### T SH, CMP, T7, LIPID #### [facility] [address] [place] [address] Dr. Mishel Shine Urea nitrogen/Creatinine [Mass ratio] 22.2 mg/mg Normal [facility] Comment on above: Performed By: #### T SH, CMP, T7, LIPID #### [facility] [address] [place] [address] Dr. Mishel Shine TSHon 07-12-2022 TSH 0.484 uIU/mL Normal 0.358-3.740 [facility] Comment on above: Performed By: #### T SH, CMP, T7, LIPID #### [facility] [address] [place] [address] Dr. Mishel Shine VIT B12 AND FOLATEon 023 Cobalamin (Vitamin B12) [Mass/Vol] 404.0 pg/mL Normal 193.0-986.0 [facility] Comment on above: Performed By: #### F ERR, IRON, B12FOL, VITAD #### [facility] [address] [place] [address] Dr. Mishel Shine FOLATE 15.00 ng/mL Normal 8.60-58.90 [facility] Comment on above: Performed By: #### F ERR, IRON, B12FOL, VITAD #### [facility] [address] [place] [address] Dr. Mishel Shine VITAMIN D 25 OHon 01-23-2023 VIT D 25-OH 32.0 ng/mL Normal [facility] Comment on above: Performed By: #### F ERR, IRON, B12FOL, VITAD #### [facility] [address] [place] [address] Dr. Mishel Shine VIT D RANGES SEE BELOW Normal [facility] Comment on above: Result Comment: <20 ng/mL Vit D deficient 20 - <30 ng/mL Vit D insufficient 30 - 100 ng/mL Vit D sufficient >100 ng/mL Potential Toxicity Performed By: #### F ERR, IRON, B12FOL, VITAD #### [facility] [address] [address] [address] Mishel Shine Covid-19 PCR ([facility])on SARS-CoV-2 (COVID-19) RNA WALLY+probe Ql (Unsp spec) Not detected Normal NOT DETECTED [facility] Comment on above: Result Comment: This test is not yet approved or cleared by the [place] FDA. When there are no FDA-approved or cleared tests available, and other criteria are met, FDA can make tests available under an emergency access mechanism called an Emergency Use Authorization (EUA). The EUA for this test is supported by the [place] of Health and Human Service's (HHS's) declaration [...] #### F ERR, IRON, B12FOL, VITAD #### [facility] [address] [place] [address] Dr. Mishel Shine INFLUENZA A AND B AGon 06-20 INFLUANEGH SEE BELOW Normal [facility] Comment on above: Result Comment: Nega tive for Flu A protein angiten. Infection due to Flu A cannot be ruled out. Flu A angiten in the sample may be below the detection limit of the test. Performed By: #### F ERR, IRON, B12FOL, VITAD #### [facility] [address] [address] [address] Mishel Shine [facility] SEE BELOW Normal [facility] Comment on above: Result Comment: Nega tive for Flu B protein antigen. Infection due to Flu B cannot be ruled out. Flu B antigen in the sample may be below the detection limit of the test. Performed By: #### F ERR, IRON, B12FOL, VITAD #### [facility] [address] [address] [address] Mishel Shine INFLUENZA A AG Negative Normal NEGATIVE SEE COMMENT [facility] Comment on above: Performed By: #### F ERR, IRON, B12FOL, VITAD #### [facility] [address] [address] [address] Mishel Shine INFLUENZA B AG Negative Normal NEGATIVE SEE COMMENT [facility] Comment on above: Performed By: #### F ERR, IRON, B12FOL, VITAD #### [facility] [address] [address] [address] Mishel Shine TROPONIN, HIGH SENSITIVITYon 06-20-2022 HSTROP <4.0 Normal 4.0-51.3 [facility] Comment on above: Result Comment: CUT- OFF POINTS HAVE BEEN ESTABLISHED BASED ON THE FOURTH UNIVERSAL DEFINITIONS OF MYOCARDIAL INFARCTION. THE UPPER REFERENCE LIMIT (URL) OF TROPONIN, DEFINED THE 99TH PERCENTILE OF cTnI DISTRIBUTION IN A REFERENCE POPULATION, HAS BEEN CONFIRMED THE DECISION THRESHOLD FOR [place] DIAGNOSIS. Performed By: #### F ERR, IRON, B12FOL, VITAD #### [facility] [address] [address] [address] Mishel Shine XR CHEST 1 Von [...] by: ROLANDO ANSARI Date: 2022-06-20 21:08 Normal [facility]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 [facility]04-24-2023 Evaluation note* Encounter Date Diagnosis Assessment Notes Treatment Notes Treatment Clinical Notes Sep, Retained tampon, initial encounter (ICD-10 - T19.2XXA) Drink plenty fluids, get plenty of rest. Take the antibiotic as prescribed until gone. Follow-up with your family doctor or landscaping crew leader for any worsening symptoms or concerns Sep, Other Toxic shock syn drome material was printed [facility] Other 03-01-2023 History general Narrative - Reported* Type Description Date Medical History eczema Medical History hypothyroidism/Hashimotos since age 8 Medical History GERD Surgical History cholecystectomy 08/2022 [facility] Other Evaluation note* Diagnosis Hypersomnia- Primary Hypersomnia, unspecified [facility] Diagnosis Abnormal tooth eruption- Primary Disturbances in tooth eruption [facility] Diagnosis Hypersomnia- Primary Hypersomnia, unspecified [facility] Diagnosis Hypersomnia Hypersomnia, unspecified [facility] Diagnosis Abnormal tooth eruption- Primary Disturbances in tooth eruption [facility]* Diagnosis Pharyngitis, unspecified etiology- Primary Acute tonsillitis, unspecified etiology [facility] Diagnosis Hypersomnia Hypersomnia, unspecified [facility] Diagnosis Hypersomnia- Primary Hypersomnia, unspecified Periodic limb movement Periodic limb movement disorder [facility] Narrative No data available for this section [facility] No data available for this section [facility] Summary Purpose Family History No Family History Records FoundNo Family History Records FoundNo Family History Records Found No data available for this section No Family History Records FoundNo Family History Records FoundNo Family History Records Found Advance Directives No Advanced Directives Records FoundDocuments on File Type Date Recorded 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 Expl anation Advance Directives and Living Will Power of Consulting Practice Director Additional Source Comments INFORMATION SOURCE (unrecogn ized section and content) DATE CREATED AUTHOR 04/20/2018 [facility] DATE CREATED AUTHOR AUTHOR'S ORGANIZ ATION 05/14/2019 [facility] DATE CREATED AUTHOR AUTHOR'S ORGANIZ ATION 10/13/2022 [facility] DATE CREATED AUTHOR AUTHOR'S ORGANIZ ATION 10/24/2023 [facility] DATE CREATED AUTHOR AUTHOR'S ORGANIZ ATION 08/03/2024 [facility] DATE CREATED AUTHOR AUTHOR'S ORGANIZ ATION 09/22/2024 [facility] Specialists EPIC REASON FOR VISIT (unrecogniz ed section and content) Reason Onset Date Comments Med Refill 06/15/2024 Reason Onset Date Comments Med Refill 09/14/2024 Reason Comments Sleeping Problem Insomnia Hypersomnia Care Teams (unrecognized sec tion and content) Training Lead Relationship Specialty Start Date End Date Tenzin Hamlin DMD, MD [address] [place], [place] [id number] Physician Oral & Maxillofacial Surgery 04/21/24 Training Lead Relationship Specialty Start Date End Date Yahir Painting MD [address] [place] [phone] PCP - General Family Medicine 11/17/22 FOR RECORDS PERTAINING TO PATIENTS WHO ARE [...] BE BASED ON THE PRIMARY CLINICAL RECORDS. [facility], [facility]. provides no warranty or guarantee of the accuracy or completeness of information in this document.
[2024-09-27 17:20] LABS: Alanine Aminotransferase 33 U/L (14-59); Albumin Level 3.7 g/dL (3.4-5.0); Alkaline Phosphatase 105 U/L (46-116); Anion Gap 9.1; Aspartate Amino Transferase 18 U/L (15-37); BUN Creatinine Ratio 14.1; Bilirubin Total 0.6 mg/dL (0.2-1.0); Calcium 8.8 mg/dL (8.5-10.1); Carbon Dioxide 28.4 mmol/L (21.0-32.0); Chloride 104 mmol/L (98-107); Estimated GFR (African America >60 (>=60 mL/min/1.73m^2); Estimated GFR (Non-African Ame >60 (>=60 mL/min/1.73m^2); Globulin 3.8 g/dL; Glucose 88 mg/dL (74-106); Potassium 3.5 mmol/L (3.5-5.1); Sodium 138 mmol/L (136-145); Thyroid Stimulating Hormone <0.007 uIU/mL (0.358-3.740); Total Protein 7.5 g/dL (6.4-8.2); Troponin I High Sensitivity <4.0 pg/mL (4.0-51.3)
[2024-09-27 17:39] LABS: Free T4 1.47 ng/dL (0.76-1.46)
== END 2024-09-27 16:37 | disposition home or self-care (01) ==
PROVIDERS: PCP Family Medicine; Visit Provider Family Medicine
DX: R06.00 Dyspnea, unspecified (principal); R07.89 Other chest pain; I10 Essential (primary) hypertension; E03.9 Hypothyroidism, unspecified; R53.83 Other fatigue
CPT/HCPCS: 36415; 71046; 80053; 83880; 84439; 84443; 84484; 85025

== ENCOUNTER 2024-11-26 10:04 | Outpatient (OUT) | payer OTHER, SELFPAY ==
--- NOTE | 2024-11-26 10:00 | CA_ITS ---
Patient Name: FARHAD BEY MR#: [id number] : 1995 Exam Date: 11/26/2024 Ordering Doctor: DR YAHIR FENG . ECHOCARDIOGRAM REPORT PROCEDURE: CA ECHO DOPPLER COMPLETE INDICATIONS: Dyspnea COMPARISON: None. DESCRIPTION: COMPLETE ECHOCARDIOGRAM Real-time transthoracic echocardiography with 2D, M-mode, spectral and color flow Doppler performed. QUALITY: Technical quality was good. LEFT VENTRICLE: Normal chamber size. Normal left ventricular wall thickness. Normal left ventricle systolic function without wall motion abnormalities, calculated left ventricular ejection fraction is 65%. LV EF: Normal left ventricular ejection fraction, (>55%). DIASTOLIC: Normal diastolic function. ATRIAL SEPTUM: Visually appears intact. LEFT ATRIUM: Normal chamber size. RIGHT ATRIUM: Normal chamber size. RIGHT VENTRICLE: Normal chamber size. Normal right ventricular systolic function. TRICUSPID VALVE: Normal mobility and thickness. trivial regurgitation. No evidence of pulmonary hypertension.RVSP 22 mmHg MITRAL VALVE: Normal mobility and thickness. There is no mitral annular calcification. No mitral regurgitation or stenosis. AORTIC VALVE: Normal trileaflet appearance. No visible sclerosis. Normal leaflet mobility. No aortic regurgitation. AORTIC ROOT: Normal diameter and appearance. PULMONIC VALVE: Normal thickness and mobility. No regurgitation or stenosis. PERICARDIUM: No evidence of pericardial effusion. IVC: Collapes with inspirations. IVC is normal in size. PLEURA: CONCLUSION: Normal left ventricle size, wall thickness, and systolic function without wall motion abnormalities, calculated ejection fraction 65% Normal left ventricular diastolic function Normal right ventricle size and systolic function No significant valvular abnormalities Adult Echocardiography Procedure Report Left Ventricle LVEDD (3.7 - 5.6 cm): 3.66 cm LVESD (2.2 - 4.0 cm): 2.83 cm LVIVS thickness (0.6 - 1.2 cm): 0.71 cm LVPW thickness (0.5 - 1.0 cm): 0.76 cm e': 0.23 m/s E - e': 3.30 LVOT Max Gradient: 5.16 mm[Hg] LVOT Area (cm2): 1.14 m/s Peak Velocity (LVOT): 1.14 m/s Mean Velocity (LVOT): 0.76 m/s LVOT Diameter 2.15 cm Left Atrium LA Volume Index (2D A2C): 34.32 ml/m2 Left Atrium Systolic Dimension: 3.04 cm Mitral Valve MV E to A Ratio: 1.91 Mitral Valve A-Wave Peak Velocity: 0.40 m/s Mitral Valve E-Wave Peak Velocity: 0.77 m/s Right Ventricle Aorta AO Root Diam: 2.89 cm Aortic Valve AoV Area (Peak Rajinder): 3.77 cm2, 3.77 cm2 Peak Velocity(Antegrade Flow): 1.09 m/s Peak Gradient(Antegrade Flow): 4.74 mm[Hg] Tricuspid Valve Peak Velocity (Regurgitant Flow): 2.18 m/s Pulmonic Valve Mean Gradient: 1.84 mm[Hg] Mean Velocity: 0.64 m/s Peak Velocity: 0.87 m/s, 0.76 m/s Peak Gradient: 2.32 mm[Hg], 3.02 mm[Hg] Right Atrium Right Atrium Systolic Pressure: 33.07 ml, 33.07 ml Dictated by: Mehul Perez MD on 11/26/2024 at 18:22 Approved by: Mehul Perez MD on 11/26/2024 at 18:26
--- OUTSIDE RECORDS SUMMARY | 2024-11-26 10:08 | XMS_ITS | Encounter Summary ---
Author Organization [facility] Address [id number] [address] [place] [address] Care Team Providers Care Operator Maintainer Name Role Phone Edgardo Painting MD Primary Care Provider [phone] Encounter Details Date Type Department Care Team (Late st Contact Info) Description 04/23/2020 Orders Only [facility] [address] [place] [phone] External, Scanning Provider Social History Tobacco Use Types Packs/Day Years Used Date Smoking Tobacco: Never Smokeless Tobacco: Never Alcohol Use Standard Drinks/Week Comments Never 0 (1 standard drink = 0.6 oz pur e alcohol) AUDIT-C Answer Date Recorded Q1: How often do you have a drink containing alc ohol? Never 03/25/2020 Average Number of Drinks Not on file 020 Frequency of Binge Drinking Not on file 11/2019 Childcare Answer Date Recorded Childcare Unknown 11/30/2018 Employment Answer Date Recorded Employment Unknown 11/30/2018 Comments No Sex and Gender Information Value Date Recorded Sex Assigned at Not on file Legal Sex Female 1:49 PM EST Gender Identity Not on file Sexual Orientation Not on file COVID-19 Exposure Response Date Recorded In the last month, have you been in contact with someone who was confirmed or suspected to have Coronavirus / COVID-19? No / Unsure 04/17/2020 2:24 PM EDT documented as of this encounter Plan of Treatment Not on file documented as of this encounter Procedures Procedure Name Priority Date/Time Associated Diagnosis Comments TYMPANOMETRY (AUDIOLOGY) Routine 04/23/2020 documented in this encounter Results * Tympanometry (Audiology) (04/23/2020) us Scanning Provider External AUDIOLOGY SERVICES OR DERABLES Final Result MANUALLY TRANSCRIBED RESULTS documented in this encounter Visit Diagnoses Not on filedocumented in this encounter Additional Health Concerns Infection Onset Date Last Indicated Resolved Time COVID-19 Rule-Out 11/22/2020 11/22/2020 11/22/2020 9:30 PM EDT documented as of this encounter Care Teams Operator Maintainer Relationship Specialty Start Date End Date Edgardo Painting MD PCP - General Family Medicine 03/25/20 documented as of this encounter
--- OUTSIDE RECORDS SUMMARY | 2024-11-26 10:08 | XMS_ITS | Clinical Summary ---
Author Organization [facility] Address [address] [place] [address] Care Team Providers Care Manager Documentation Name Role Phone Edgardo Painting MD Primary Care Provider [phone] Daniel Aracely DO Unavailable [phone] Serenity Rodriguez REGULATOR MECHANIC Unavailable [phone] Allergies Active Allergy Reactions Criticality Noted Date Comments Ciprofloxacin Hives Low 07/10/2018 Medications levothyroxine (Synthroid, Levoxyl) 25 MCG tablet Take by mouth. Active desvenlafaxine (Pristiq) 50 MG 24 hr tablet Take 50 mg by mouth Daily 4 Active Multiple Vitamin (multivitamin) capsule Take 1 capsule by mouth in the morning. Active levothyroxine (Synthroid, Levoxyl) 200 MCG tablet Take 200 mcg by mouth in the morning. Take on an empty stomach.. 4 Active FeroSul 325 (65 Fe) MG tablet Take 1 tablet by mouth in the morning and 1 tablet before bedtime. 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 Hearing loss of left ear 04/17/2020 Perforation of left tympanic membrane 03/27/2020 Hypothyroidism affecting in first trim omar 07/13/2018 Obesity affecting in first trimester 0 07/13/2018 Encounters Date Type Department Care Team Description 09/19/2024 4:00 PM EDT Office Visit [place] [address]363 [place] [address] [address] Serenity Rodriguez NP Hypersomnia (Primary Dx); Periodic limb movement 09/19/2024 Bamboo flowsheet [place] [address] [place] [address] [address] Serenity Rodriguez NP 09/14/2024 Refill [place] 429362 [place] [address] [address] Serenity Rodriguez NP Hypersomnia from Last 3 Months Family History Medical History Relation Name Comments No Known Problems Daughter No Known Problems Father Breast cancer Mother No Known Problems Sister Relation Name Status Comments Daughter Alive Father Alive Mother Alive Sister Alive Social History Tobacco Use Types Packs/Day Years Used Date Smoking Tobacco: Never Smokeless Tobacco: Never Tobacco Cessation:Counseling Given: Not Answered Alcohol Use Standard Drinks/Week Comments Not Currently 0 (1 standard drink = 0.6 oz pur e alcohol) Comments No Sex and Gender Information Value Date Recorded Sex Assigned at Not on file Legal Sex Female 8:08 PM EDT Gender Identity Not on file Sexual Orientation Not on file Last Filed Vital Signs Vital Sign Reading Time Taken Comments Blood Pressure 132/73 09/19/2024 4:09 PM EDT Pulse 84 09/19/2024 4:09 PM EDT Temperature 36.4 C (97.6 F) 07/04/2024 12:14 PM EST Respiratory Rate - - Oxygen Saturation 99% 07/04/2024 12:14 PM EST Inhaled Oxygen Concentration - - Weight 75.8 kg (167 lb) 09/19/2024 4:09 PM EDT Height 162.6 cm (5' 4 ) 09/19/2024 4:09 PM EDT Body Mass Index 28.67 09/19/2024 4:09 PM EDT Plan of Treatment Health Maintenance Due Date Last Done Comments Pap Smear 2014 Cervical Cancer Screening 2023 HPV/Cotest 2023 Influenza Vaccine (Season Ended) 2025 04/27/2021, 04/18/2019, 04/04/2017, Additional history exists Insurance [employer] MEDICAID Care Teams Manager Documentation Relationship Specialty Start Date End Date Edgardo Painting MD PCP - General Family Medicine 11/17/22 Aracely Sanchez DO [address] [place] [address] Referring Physician Neurology 09/19/24 Serenity Rodriguez NP [address] [place] [address] Nurse Practitioner Neurology 09/19/24
--- OUTSIDE RECORDS SUMMARY | 2024-11-26 10:08 | XMS_ITS | Encounter Summary ---
Author Organization [employer] [facility] Address [facility]-[id number] [address] [place] [address] Care Team Providers Care Research Chief Engineer Name Role Phone Edgardo Painting MD Primary Care Provider [phone] Encounter Details Date Type Department Care Team (Late st Contact Info) Description 08/13/2020 [facility] [address] [facility], [address] [address] Ayo Sofia MD [address] [facility] [address] [place], [place] [id number] Social History Tobacco Use Types Packs/Day Years Used Date Smoking Tobacco: Never Smokeless Tobacco: Never Alcohol Use Standard Drinks/Week Comments Yes 0 (1 standard drink = 0.6 oz pur e alcohol) rarely AUDIT-C Answer Date Recorded Q1: How often do you have a drink containing alc ohol? Never 03/25/2020 Average Number of Drinks Not on file 020 Frequency of Binge Drinking Not on file 11/2019 PHQ-2 Answer Date Recorded Total Score 0 05/28/2020 Childcare Answer Date Recorded Childcare Unknown 11/30/2018 Employment Answer Date Recorded Employment Unknown 11/30/2018 Purpose - Life Answer Date Recorded Purpose and direction in life Unknown Comments No Sex and Gender Information Value Date Recorded Sex Assigned at Not on file Legal Sex Female 1:49 PM EST Gender Identity Not on file Sexual Orientation Not on file COVID-19 Exposure Response Date Recorded In the last month, have you been in contact with someone who was confirmed or suspected to have Coronavirus / COVID-19? No / Unsure 07/30/2020 9:45 AM EST documented as of this encounter Miscellaneous Notes * Telephone Encounter - Amada Magana - 08/13/2020 2:52 PM EST Patient called and would like the surgery , please advise * Telephone Encounter - Ayo Sofia MD - 08/13/2020 2:52 PM EST He will need to return with an Audiogram to discuss the surgery. Can you arrange the return visit. Thank you * Telephone Encounter - Amada Magana - 08/13/2020 2:52 PM EST She has been scheduled for [id number] with audio documented in this encounter Plan of Treatment Not on file documented as of this encounter Visit Diagnoses Not on filedocumented in this encounter Additional Health Concerns Infection Onset Date Last Indicated Resolved Time COVID-19 Rule-Out 11/22/2020 11/22/2020 11/22/2020 9:30 PM EDT Assessment Noted Time PHQ-9 Depression Total Score: 0 05/28/20 20 2:22 PM EST documented as of this encounter Care Teams Research Chief Engineer Relationship Specialty Start Date End Date Edgardo Painting MD PCP - General Family Medicine 03/25/20 documented as of this encounter
--- OUTSIDE RECORDS SUMMARY | 2024-11-26 10:08 | XMS_ITS | Clinical Summary ---
Author Organization [facility] Address [address] [place] [address] Care Team Providers Care Lace Roller Name Role Phone Edgardo Painting MD Primary Care Provider [phone] Allergies No known active allergies Medications Levothyroxine Sodium (SYNTHROID PO) Take by mouth. Active drospirenone-eth inyl estradiol (BASHIR) 3-0.02 MG per tabletIndication s:Irregular menstrual cycle Take 1 tablet by mouth daily for 28 days 28 tablet 0 03/06/2015 Active Social History Tobacco Use Types Packs/Day Years Used Date Smoking Tobacco: Never Alcohol Use Standard Drinks/Week Comments No 0 (1 standard drink = 0.6 oz pur e alcohol) Comments No Sex and Gender Information Value Date Recorded Sex Assigned at Not on file Legal Sex Female 6:41 PM EST Gender Identity Not on file Sexual Orientation Not on file Last Filed Vital Signs Vital Sign Reading Time Taken Comments Blood Pressure 124/70 02/28/2014 2:02 PM EDT Pulse - - Temperature - - Respiratory Rate - - Oxygen Saturation - - Inhaled Oxygen Concentration - - Weight 70.3 kg (155 lb) 02/28/2014 2:02 PM EDT Height 162.6 cm (5' 4 ) 02/28/2014 2:02 PM EDT Body Mass Index 26.61 02/28/2014 2:02 PM EDT Plan of Treatment Not on file Insurance FRONTPATH [facility] [address] [address] Care Teams Lace Roller Relationship Specialty Start Date End Date Edgardo Painting MD [address] [place] [address] PCP - General Family Medicine 04/24/17
--- OUTSIDE RECORDS SUMMARY | 2024-11-26 10:08 | XMS_ITS | Encounter Summary ---
Author Organization [facility] tem Address [facility]-[id number] [address] [place] [address] Care Team Providers Care Clinical Research Physician Name Role Phone Edgardo Painting MD Primary Care Provider [phone] Encounter Details Date Type Department Care Team (Late st Contact Info) Description 09/10/2020 Orders Only [facility] - ENT [address] [place] [address], [address] [place] [phone] [place] [address] [place] [address] [address] [place] [address] Social History Tobacco Use Types Packs/Day Years [...] have Coronavirus / COVID-19? No / Unsure 09/10/2020 8:29 AM EDT documented as of this encounter Plan of Treatment Not on file documented as of this encounter Procedures Procedure Name Priority Date/Time Associated Diagnosis Comments COMPREHENSIVE HEARING TEST Routine 09/10/2020 8:33 AM EDT documented in this encounter Results * Comprehensive hearing test (09/10/2020 8:33 AM EDT) Narrative MANUALLY TRANSCRIBED RESULTS - 09/10/2020 8:33 AM EDT Audiology evaluation was completed on 09/10/2020 us Ayo Sofia MD AUDIOLOGY SERVICES ORDERABLE S Final Result MANUALLY TRANSCRIBED RESULTS documented in this encounter Visit Diagnoses Not on filedocumented in this encounter Additional Health Concerns Infection Onset Date Last Indicated Resolved Time COVID-19 Rule-Out 11/22/2020 11/22/2020 11/22/2020 9:30 PM EDT Assessment Noted Time PHQ-9 Depression Total Score: 0 05/28/20 20 2:22 PM EST documented as of this encounter Care Teams Clinical Research Physician Relationship Specialty Start Date End Date Edgardo Painting MD PCP - General Family Medicine 03/25/20 documented as of this encounter
--- OUTSIDE RECORDS SUMMARY | 2024-11-26 10:08 | XMS_ITS | Encounter Summary ---
Author Organization [facility] tem Address [facility] [place] [id number] [address] [place] [address] Care Team Providers Care Grade Setter Name Role Phone Edgardo Painting MD Primary Care Provider [phone] Encounter Details Date Type Department Care Team (Late st Contact Info) Description 07/30/2020 Orders Only [facility] - ENT [address] [place] [address], [address] [place] [phone] [place] [address] [place] [address] [address] [place] [address] Social History Tobacco Use Types [...] AM EST documented as of this encounter Plan of Treatment Not on file documented as of this encounter Procedures Procedure Name Priority Date/Time Associated Diagnosis Comments COMPREHENSIVE HEARING TEST Routine 07/30/2020 10:54 AM EST documented in this encounter Results * Comprehensive hearing test (07/30/2020 10:54 AM EST) Narrative MANUALLY TRANSCRIBED RESULTS - 07/30/2020 10:54 AM EST Audiology evaluation was completed on 07/30/2020 us Ayo Sofia MD AUDIOLOGY SERVICES ORDERABLE S Final Result MANUALLY TRANSCRIBED RESULTS documented in this encounter Visit Diagnoses Not on filedocumented in this encounter Additional Health Concerns Infection Onset Date Last Indicated Resolved Time COVID-19 Rule-Out 11/22/2020 11/22/2020 11/22/2020 9:30 PM EDT Assessment Noted Time PHQ-9 Depression Total Score: 0 05/28/20 20 2:22 PM EST documented as of this encounter Care Teams Grade Setter Relationship Specialty Start Date End Date Edgardo Painting MD PCP - General Family Medicine 03/25/20 documented as of this encounter
--- OUTSIDE RECORDS SUMMARY | 2024-11-26 10:08 | XMS_ITS | Encounter Summary ---
Author Organization [facility] tem Address [facility][id number] [address] [place] [address] Care Team Providers Care Director Of Corporate Marketing Name Role Phone Edgardo Painting MD Primary Care Provider [phone] Encounter Details Date Type Department Care Team (Late st Contact Info) Description 04/23/2020 Orders Only [facility] [address] [place] [phone] External, Scanning Provider Social History Tobacco Use [...] Procedure Name Priority Date/Time Associated Diagnosis Comments HEARING EVALUATION (AUDIOLOGY) Routine 04/23/2020 documented in this encounter Results * Hearing Evaluation (Audiology) (04/23/2020) us Scanning Provider External ENT ORDERABLES Final Result MANUALLY TRANSCRIBED RESULTS documented in this encounter Visit Diagnoses Not on filedocumented in this encounter Additional Health Concerns Infection Onset Date Last Indicated Resolved Time COVID-19 Rule-Out 11/22/2020 11/22/2020 11/22/2020 9:30 PM EDT documented as of this encounter Care Teams Director Of Corporate Marketing Relationship Specialty Start Date End Date Edgardo Painting MD PCP - General Family Medicine 03/25/20 documented as of this encounter
--- OUTSIDE RECORDS SUMMARY | 2024-11-26 10:09 | XMS_ITS | Encounter Summary ---
Author Organization [facility] tem Address [id number] [address] [place] [address] Care Team Providers Care Tool Shaper Setup Operator Name Role Phone Edgardo Painting MD Primary Care Provider [phone] Encounter Details Date Type Department Care Team (Late st Contact Info) Description 03/11/2021 Orders Only [facility] - ENT [address] [place] [address], [address] [place] [phone] [place] [address] [place] [address] [address] [place] [address] Social History Tobacco Use Types [...] have Coronavirus / COVID-19? No / Unsure 03/11/2021 9:18 AM EDT documented as of this encounter Plan of Treatment Not on file documented as of this encounter Procedures Procedure Name Priority Date/Time Associated Diagnosis Comments COMPREHENSIVE HEARING TEST Routine 03/11/2021 9:20 AM EDT documented in this encounter Results * Comprehensive hearing test (03/11/2021 9:20 AM EDT) us Ayo Sofia MD AUDIOLOGY SERVICES ORDERABLE S Final Result MANUALLY TRANSCRIBED RESULTS documented in this encounter Visit Diagnoses Not on filedocumented in this encounter Additional Health Concerns Assessment Noted Time PHQ-9 Depression Total Score: 0 05/28/20 20 2:22 PM EST documented as of this encounter Care Teams Tool Shaper Setup Operator Relationship Specialty Start Date End Date Edgardo Painting MD PCP - General Family Medicine 03/25/20 documented as of this encounter
--- OUTSIDE RECORDS SUMMARY | 2024-11-26 10:09 | XMS_ITS | Clinical Summary ---
Author Organization [employer] tem Address [id number] [address] [place] [address] Care Team Providers Care Registered Nurse Renal Name Role Phone Edgardo Painting MD Primary Care Provider [phone] Allergies Active Allergy Reactions Criticality Noted Date Comments Ciprofloxacin Hives Low 07/10/2018 Medications levothyroxine (SYNTHROID, LEVOTHROID) 150 MCG tablet Take 1 tablet by mouth before breakfast. Active citalopram (CeleXA) 20 mg tabletIndicatio ns:anxiety with depression Take 20 mg by mouth before breakfast Indications: anxiousness associated with depression. Active multivitamin capsuleIndicati ons:vitamin deficiency prevention Take 1 capsule by mouth daily Indications: treatment to prevent vitamin deficiency. 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 Hearing loss of left ear 04/17/2020 Perforation of left tympanic membrane 03/27/2020 Hypothyroidism affecting in first trim omar 07/13/2018 Obesity affecting in first trimester 0 07/13/2018 Family History Medical History Relation Name Comments Drug abuse Brother Hyperlipidemia Maternal Grandfather Hypertension Maternal Grandfather Anesthesia problems Maternal Grandmother ifficulty waking up Coronary artery disease Maternal Grandmother Diabetes Maternal Grandmother Hyperlipidemia Maternal Grandmother Thyroid disease Maternal Grandmother Asthma Mother Breast cancer Mother Diabetes Paternal Grandmother Thyroid disease Paternal Grandmother Bleeding Disorder Neg Hx Clotting disorder Neg Hx Colon cancer Neg Hx Hearing loss Neg Hx Ovarian cancer Neg Hx Stroke Neg Hx Relation Name Status Comments Brother Father Alive Maternal Grandfather Alive Maternal Grandmother Alive Mother Alive Paternal Grandfather Alive Paternal Grandmother Alive Sister Alive Social History Tobacco Use [...] Sign Reading Time Taken Comments Blood Pressure 125/79 11/25/2020 10:36 AM EDT Pulse 82 11/25/2020 10:41 AM EDT Temperature 36.5 C (97.7 F) 03/11/2021 9:59 AM EDT Respiratory Rate 13 11/25/2020 10:41 AM EDT Oxygen Saturation 98% 11/25/2020 10:41 AM EDT Inhaled Oxygen Concentration - - Weight 107 kg (236 lb) 03/11/2021 9:59 AM EDT Height 162.6 cm (5' 4 ) 03/11/2021 9:59 AM EDT Body Mass Index 40.51 03/11/2021 9:59 AM EDT Plan of Treatment Health Maintenance Due Date Last Done Comments Depression Screening 2005 Tobacco Screening 2005 Adult BMI Screening 2011 DTaP,Tdap and Td Vaccines (1 - Tdap) 2012 Pap Smear 2014 COVID-19 Vaccine (3 2023-2 5 season) 2024 08/19/2020, 07/29/2020 Influenza Vaccine 02/18/2025 04/18/2019, , 04/14/2016 Medical Devices Not on file Insurance MEDICAID Care Teams Registered Nurse Renal Relationship Specialty Start Date End Date Edgardo Paintign MD PCP - General Family Medicine 03/25/20
== END 2024-11-26 10:05 | disposition home or self-care (01) ==
LOC: CARD 10:04
PROVIDERS: PCP Family Medicine; Visit Provider Family Medicine
DX: R06.00 Dyspnea, unspecified (principal); E03.9 Hypothyroidism, unspecified
CPT/HCPCS: 36415; 84436; 84443; 84481; 93306

== ENCOUNTER 2024-11-26 10:42 | Outpatient (OUT) | payer OTHER, SELFPAY ==
--- OUTSIDE RECORDS SUMMARY | 2024-11-26 10:45 | XMS_ITS | Encounter Summary ---
Author Organization [employer] [facility] Address [id number] [address] [place] [address] Care Team Providers Care Prosthetist Name Role Phone Edgardo Painting MD Primary Care Provider [phone] Encounter Details Date Type Department Care Team (Late st Contact Info) Description 08/13/2020 [facility] [address] [facility], [address] [address] Ayo Sofia MD [address] [facility] [address] [place], [place] [id number] Social History Tobacco Use Types Packs/Day Years [...] PM EST She has been scheduled for [id number] with audio documented in this encounter Plan of Treatment Not on file documented as of this encounter Visit Diagnoses Not on filedocumented in this encounter Additional Health Concerns Infection Onset Date Last Indicated Resolved Time COVID-19 Rule-Out 11/22/2020 11/22/2020 11/22/2020 9:30 PM EDT Assessment Noted Time PHQ-9 Depression Total Score: 0 05/28/20 20 2:22 PM EST documented as of this encounter Care Teams Prosthetist Relationship Specialty Start Date End Date Edgardo Painting MD PCP - General Family Medicine 03/25/20 documented as of this encounter
--- OUTSIDE RECORDS SUMMARY | 2024-11-26 10:45 | XMS_ITS | Encounter Summary ---
Author Organization [facility] tem Address [facility][id number] [address] [place] [address] Care Team Providers Care Pediatric Oncologist Name Role Phone Edgardo Painting MD Primary Care Provider [phone] Encounter Details Date Type Department Care Team (Late st Contact Info) Description 04/23/2020 Orders Only [facility] [address] [place] [phone] External, Scanning Provider Social History Tobacco Use [...] documented as of this encounter Care Teams Pediatric Oncologist Relationship Specialty Start Date End Date Edgardo Painting MD PCP - General Family Medicine 03/25/20 documented as of this encounter
--- OUTSIDE RECORDS SUMMARY | 2024-11-26 10:45 | XMS_ITS | Encounter Summary ---
Author Organization [facility] tem Address [facility]-[id number] [address] [place] [address] Care Team Providers Care Headmaster/Mistress Name Role Phone Edgardo Painting MD Primary Care Provider [phone] Encounter Details Date Type Department Care Team (Late st Contact Info) Description 04/23/2020 Orders Only [facility] [address] [place] [phone] External, Scanning Provider Social History Tobacco Use [...] documented as of this encounter Care Teams Headmaster/Mistress Relationship Specialty Start Date End Date Edgardo Painting MD PCP - General Family Medicine 03/25/20 documented as of this encounter
--- OUTSIDE RECORDS SUMMARY | 2024-11-26 10:45 | XMS_ITS | Clinical Summary ---
Author Organization [facility] Address [address] [place] [address] Care Team Providers Care Sales And Marketing Intern Name Role Phone Edgardo Painting MD Primary Care Provider [phone] Daniel Aracely DO Unavailable Serenity Rodriguez FLAG SIGNALER Unavailable [phone] Allergies Active Allergy Reactions Criticality Noted [...] Description 09/19/2024 4:00 PM EDT Office Visit [place] [id number] [place] [address] [address] Serenity Rodriguez NP Hypersomnia (Primary Dx); Periodic limb movement 09/19/2024 Bamboo flowsheet [place] [address] [place] [address] [address] Serenity Rodriguez NP 09/14/2024 Refill [place] [address] [place] [address] [address] Serenity Rodriguez NP Hypersomnia from [...] exists Insurance [employer] MEDICAID Care Teams Sales And Marketing Intern Relationship Specialty Start Date End Date Edgardo Painting MD PCP - General Family Medicine 11/17/22 Aracely Sanchez DO [address] [place] [address] Referring Physician Neurology 09/19/24 Serenity Rodriguez NP [address] [place] [address] Nurse Practitioner Neurology 09/19/24
--- OUTSIDE RECORDS SUMMARY | 2024-11-26 10:45 | XMS_ITS | Encounter Summary ---
Author Organization [facility] tem Address [facility][id number] [address] [place] [address] Care Team Providers Care Sausage Mixer Name Role Phone Edgardo Painting MD Primary Care Provider [phone] Encounter Details Date Type Department Care Team (Late st Contact Info) Description 09/10/2020 Orders Only [facility] - ENT [address] [place] [address], [address] [place] [phone] [place] [address] [place] [address] [address] [place] [address] Social History Tobacco Use Types [...] documented as of this encounter Care Teams Sausage Mixer Relationship Specialty Start Date End Date Edgardo Painting MD PCP - General Family Medicine 03/25/20 documented as of this encounter
--- OUTSIDE RECORDS SUMMARY | 2024-11-26 10:45 | XMS_ITS | Clinical Summary ---
Author Organization [facility] Address [address] [place] [address] Care Team Providers Care Divorce Attorney Name Role Phone Edgardo Painting MD Primary Care Provider [phone] Allergies No known active allergies Medications Levothyroxine [...] of Treatment Not on file Insurance FRONTPATH [facility] [address] [address] Care Teams Divorce Attorney Relationship Specialty Start Date End Date Edgardo Painting MD [address] [place] [address] PCP - General Family Medicine 04/24/17
--- OUTSIDE RECORDS SUMMARY | 2024-11-26 10:46 | XMS_ITS | Encounter Summary ---
Author Organization [facility] tem Address [facility][id number] [address] [place] [address] Care Team Providers Care Signal Mechanic Name Role Phone Edgardo Painting MD Primary Care Provider [phone] Encounter Details Date Type Department Care Team (Late st Contact Info) Description 03/11/[address] [facility] [place] - ENT [address] [place] [address], [address] [place] [phone] [place] [address] [place] [address] [address] [place] [address] Social History Tobacco Use Types [...] documented as of this encounter Care Teams Signal Mechanic Relationship Specialty Start Date End Date Edgardo Painting MD PCP - General Family Medicine 03/25/20 documented as of this encounter
--- OUTSIDE RECORDS SUMMARY | 2024-11-26 10:46 | XMS_ITS | Clinical Summary ---
Author Organization [employer] [facility] Address [id number] [address] [place] [address] Care Team Providers Care Optical Instrument Inspector Name Role Phone Edgardo Painting MD Primary Care Provider [phone] Allergies Active Allergy Reactions Criticality Noted Date [...] Not on file Insurance MEDICAID Care Teams Optical Instrument Inspector Relationship Specialty Start Date End Date Edgardo Painting MD PCP - General Family Medicine 03/25/20
[2024-11-26 11:53] LABS: Free T3 2.49 pg/mL (2.18-3.98); Thyroid Stimulating Hormone <0.007 uIU/mL (0.358-3.740)
== END 2024-11-26 10:43 | disposition home or self-care (01) ==
LOC: LAB 10:44
PROVIDERS: PCP Family Medicine; Visit Provider Family Medicine
DX: E03.9 Hypothyroidism, unspecified (principal)
CPT/HCPCS: 36415; 84436; 84443; 84481

== ENCOUNTER 2024-12-04 10:57 | Outpatient (OUT) | payer OTHER, SELFPAY ==
--- OUTSIDE RECORDS SUMMARY | 2022-09-20 10:45 | XMS_ITS | Continuity of Care Document ---
Author Organization [facility] [employer] [facility] Address [address] [place] [address] Phone Care Team Providers Care Environmental Journalist Name Role Phone Latasha Griffin CNP Unavailable Unavailable Procedures Procedure Date POSTOP FOLLOW-UP VISIT LAPARO CHOLECYSTECTOMY/GRAPH ASSIST LAPAROSCOPE PROC INTESTINE LAPARO CHOLECYSTECTOMY/GRAPH LAPAROSCOPE PROC INTESTINE OFFICE/OUTPATIENT VISIT, EST OFFICE/OUTPATIENT VISIT, EST OFFICE/OUTPATIENT VISIT, EST POSTOP FOLLOW-UP VISIT POSTOP FOLLOW-UP VISIT LAP GASTRIC BYPASS/ESTELLE-EN-Y Gastric Bypass OFFICE/OUTPATIENT VISIT, EST PSYCH DIAGNOSTIC EVALUATION PSYCL/NRPSYC TST PHY/QHP [facility] PSYCL/NRPSYC TST PHY/QHP OFFICE/OUTPATIENT VISIT, [facility] Advance Directives Directive Yes / No Effective Date File Name No Information Encounters Encounter Description Practice Location Reason(s) For Visit Diagnoses Date Provider Providers Copied on Encounter [facility] [facility], [address], [place], [place], [id number], [place] tel:[phone] [facility] No Information Gaby Pagan. [address], [place], [place], [id number], [place]. tel:[phone] Referring Provider: Latasha Griffin, [address], [place], [address]. tel:[phone] [facility] [employer] [facility], [address] [place] [address] [address], [place], [place], [id number], [place] tel:[phone] [facility] OP No Information Gaby Pagan. [address], [place], [place], [id number], [place]. tel:[phone] Referring Provider: Latasha Griffin, [address], [place], [address]. tel:[phone] [facility], [address] [place] [address] [address], [place], [place], [id number], [place] tel:[phone] [facility] OP No Information León Patel. [facility] [address], [place], [place], [id number], [place]. tel:[phone] Referring Provider: Jorge Chau, [address], [place], [address]. tel:[phone] OFFICE/OUTPATI ENT VISIT, [facility] [employer] [facility], [address] [place] [address] [address], [place], [place], [id number], [place] tel:[phone] [facility] No Information León Patel. [address], [place], [place], [address], [place]. tel:[phone] Referring Provider: Jorge Chau, [address], [place], [address]. tel:[phone] OFFICE/OUTPATI ENT VISIT, [facility] [employer] [facility], [address] [place] [address] [address], [place], [place], [id number], [place] tel:[phone] [facility] No Information Gaby Pagan. [address], [place], [place], [address], [place]. tel:[phone] Referring Provider: Latasha Griffin, [address], [place], [address]. tel:[phone] OFFICE/OUTPATI ENT VISIT, [facility], [address] [place] [address] [address], [place], [place], [id number], [place] tel:[phone] [facility] No Information Gaby Pagan. [address], [place], [place], [address], [place]. tel:[phone] Referring Provider: Latasha Griffin, [address], [place], [address]. tel:[phone] [facility], [address] [place] [address] [address], [place], [id number], [place] tel:[phone] [facility] No Information Gaby Pagan. [address] [place] [address] [address], [place], [place], [address], [place]. tel:[phone] Referring Provider: Latasha Griffin, [address], [place], [address]. tel:[phone] [facility] [employer], [address] [place] [address] [address], [place], [id number], [place] tel:[phone] [facility] No Information Gaby Pagan. [address] [place] [address] [address], [place], [place], [id number], [place]. tel:[phone] Referring Provider: Latasha Griffin, [address], [place], [address]. tel:[phone] [facility], [address] [place] [address] [address], [place], [place], [address], [place] tel:[phone] [facility] No Information León Patel. [address] [place] [address] [address], [place], [place], [address], [place]. tel:[phone] Referring Provider: Jorge Chau, [address], [place], [address]. tel:[phone] [facility], [address] [place] [address] [address], [place], [place], [id number], [place] tel:[phone] [facility] No Information Gaby Pagan. [address], [place], [place], [address], [place]. tel:[phone] Referring Provider: Latasha Griffin, [address], [place], [address]. tel:[phone] OFFICE/OUTPATI ENT VISIT, [facility], [address] [place] [address] [address], [place], [place], [address], [place] tel:[phone] [facility] No Information León Patel. [address] [place] [address] [address], [place], [place], [address], [place]. tel:[phone] Referring Provider: Jorge Chau, [address] [facility] [address], [place], [address]. tel:[phone] PSYCH DIAGNOSTIC EVALUATION [facility], [address] [place] [address] [address], [place], [place], [id number], [place] tel:[phone] [facility] No Information Akbar Collins. [address] [place] [address] [address], [place], [place], [address], [place]. tel:[phone] Referring Provider: Karina Webber, [address], [place], [address]. tel:[phone] OFFICE/OUTPATI ENT VISIT, [facility], [address] [place] [address] [address], [place], [place], [address], [place] tel:[phone] [facility] No Information León Patel. [address] [place] [address] [address], [place], [place], [address], [place]. tel:[phone] Referring Provider: Jorge Chau, [address], [place], [address]. tel:[phone] Family History Family Member Type Diagnosis Age At Onset No Information Payers Payer name Insurance type Covered republican ID Authoredaa tisully(s) [employer] [place] Medicaid CI [id number] Social History Type Description Quantity Date Captured Comments Sex Female Smoking Status No Information Chief Complaint And Reason For Visit No Information Reason For Referral Reason For Referral No Information History Of Present Illness Encounter Date Complaint History Of Prese nt Illness No Information Functional Status Date Functional Assessmen t No Information Instructions Date Instruction Additional Infor mation No Information Assessments Type Assessment Date No Information Patient Care Teams Name Effective Dates (start - stop) Status Members No Information
--- OUTSIDE RECORDS SUMMARY | 2024-08-10 05:45 | XMS_ITS ---
Author Organization [facility] vices Address [address] [place] [phone] Care Team Providers Care Scraper Burrer Name Role Phone Sakshi Rodriguez Unavailable [phone] REASON FOR VISIT Recall (A) (31) Medications Medication SIG (Take, Route, Frequency, Duration) Notes Start Date End Date Status Amoxicillin 500 MG 1 capsule Orally darrion ry 8 hrs for 7 days 07/24/2024 Active CeleXA 05/04/2023 Active ARIPiprazole 2 MG Oral for 30 Days Active Denta 5000 Plus 1.1 % [place] with toothpa amish morning and night. Do not rinse after use. Dental Two times a day for 30 days 05/04/2023 Active Amoxicillin-Pot Clavulanate 875-125 MG Oral for 10 Days Active Levothyroxine Sodium 200 MCG Oral for 30 Days Active hydrOXYzine HCl 25 MG Oral for 7 Days Active Citalopram Hydrobromide 40 MG Oral for 30 Days Active Liothyronine Sodium 5 MCG Oral for 30 Days Active Social History Sex Assigned At : Social History Observation Description Sex Assigned At Female Encounters Encounter Location Date Provider Diagnosis [facility] [address] [place] [phone] 08/10/2024 Sakshi Rodriguez Plan Of Treatment No Information Progress Notes * MAIDA JuliaChaimOB:1995 (29 yo F)Acc No.[id number]:08/10/2024 Patient: Landy SANTIAGO Provider: Angela Rodriguez DMD :1995 A ge:29 Y S ex:Female Date:08/10/2024 Address:[address] [place] [address] [address], [phone] Subjective: * Chief Complaints: * 1 . Recall (A) (31). * Medical History: * Medications: T aking hydrOXYzine HCl 25 MG Tablet Oral , Taking Levothyroxine Sodium 200 MCG Tablet Oral , Taking Liothyronine Sodium 5 MCG Tablet Oral , Taking Citalopram Hydrobromide 40 MG Tablet Oral , Taking ARIPiprazole 2 MG Tablet Oral , Taking CeleXA , Taking Amoxicillin-Pot Clavulanate 875-125 MG Tablet Oral , Taking Denta 5000 Plus 1.1 % Cream [place] with toothpaste morning and night. Do not rinse after use. Dental Two times a day , Taking Amoxicillin 500 MG Capsule 1 capsule Orally every 8 hrs Objective: * Vitals: Assessment: Plan: * Treatment: * Billing Information: * Visit Code: * Procedure Codes: * Electronic signature of Ling Rodriguez DMD on 12/04/2024 at 11:02 AM EDT Sign off status: Pending * Provider: Angela Rodriguez DMD Date: 0 08/10/2024 Generated for Israel torrez/Puja/Tosha on: 0 12/04/2024 11:02 AM EDT
--- OUTSIDE RECORDS SUMMARY | 2024-09-27 16:01 | XMS_ITS ---
Author Organization [facility] [place] Address [address] [place] [address] Care Team Providers Care Test Man Name Role Phone Madhav Painting Primary Care Provider [phone] REASON FOR VISIT Lab results - Encounters Encounter Location Date Provider Diagnosis [facility] [address] [place] [address] 09/27/2024 Madhav Painting Hypothyroidism, unspecified E03.9 Assessments Encounter Date Diagnosis (ICD Code) Assessment Notes Treatment Notes Treatment Clinical Notes Section Notes 09/27/2024 Hypothyroidism, unspecified (ICD-10 - E03.9) Plan Of Treatment Medication Medication Name Sig Start Date Stop Date Notes Levothyroxine Sodium 25 MCG 1 tablet in the morning on an empty stomach Orally Once a day 01/24/2023 Pending Test Test Name Order Date THYROID PANEL (T4/TSH/FREE T3) Progress Notes * Roque BEYOB:1995 (29 yo F)Acc No.[id number]:09/27/2024 Patient: Landy SANTIAGO :1995 A ge:29 Y S ex:Female Address:[address] [place] [address] [address], [place] [address] * Refills Stop Levothyroxine Sodium Tablet, 25 MCG, Orally, 1 tablet in the morning on an empty stomach, Once a day Subjective: * Chief Complaints: * L ab results - * Medical History: * Surgical History: * Hospitalization/Major Diagno stic Procedure: * Medications: Objective: * Vitals: * Physical Examination: Assessment: * Assessment: 1. H ypothyroidism, unspecified - E03.9 (Primary) Plan: * Treatment: 2. O thers Stop Levothyroxine Sodium Tablet, 25 MCG, 1 tablet in the morning on an empty stomach, Orally, Once a day. * Procedure Codes: * true * Date: Generated for Israel torrez/Puja/Tosha on: 0 12/04/2024 11:02 AM EDT
--- OUTSIDE RECORDS SUMMARY | 2024-09-28 08:47 | XMS_ITS ---
Author Organization [facility] [place] Address [address] [place] [address] Care Team Providers Care Parts Interpreter Name Role Phone Madhav Painting Primary Care Provider REASON FOR VISIT cxr results Encounters Encounter Location Date Provider Diagnosis [facility] [address] [place] [address] 09/28/2024 Madhav Painting Plan Of Treatment No Information Progress Notes * Roque BEYOB:1995 (29 yo F)Acc No.[id number]:09/28/2024 Patient: Landy SANTIAGO :1995 A ge:29 Y S ex:Female Address:[address] [place] [address] [place] [phone] * true * Date: Generated for Printi ng/Famarling/eTransmitting on: 0 12/04/2024 11:00 AM EDT
--- OUTSIDE RECORDS SUMMARY | 2024-10-19 04:45 | XMS_ITS ---
Author Organization [facility] Address [address] [place] [id number] Care Team Providers Care Resolution Specialist Name Role Phone Sakshi Rodriguez Unavailable [phone] REASON FOR VISIT Rest #12-MOD #13-MOD Social History Sex Assigned At : Social History Observation Description Sex Assigned At Female Encounters Encounter Location Date Provider Diagnosis [facility] [address] [place], [place] [id number] 10/19/2024 Sakshi Rodriguez Plan Of Treatment No Information Progress Notes * Julia BEYChaimOB:1995 (29 yo F)Acc No.[id number]:10/19/2024 Patient: Landy SANTIAGO Provider: Angela Rodriguez DMD :1995 A ge:29 Y S ex:Female Date:10/19/2024 Address:[address] [place], [place] [phone] Subjective: * Chief Complaints: * 1 . Rest #12-MOD #13-MOD. * Medical History: Objective: * Vitals: Assessment: Plan: * Treatment: * Billing Information: * Visit Code: * Procedure Codes: * Electronic signature of Ling Rodriguez DMD on 12/04/2024 at 11:02 AM EDT Sign off status: Pending * Provider: Angela Rodriguez DMD Date: 10/19/2024 Generated for Israel torrez/Puja/eTransmitting on: 12/04/2024 11:02 AM EDT
--- OUTSIDE RECORDS SUMMARY | 2024-11-26 16:55 | XMS_ITS ---
Author Organization [facility] [place] Address [address] [place] [address] Care Team Providers Care Ruffling Hemmer Automatic Name Role Phone Madhav Painting Primary Care Provider REASON FOR VISIT labs/ echo Encounters Encounter Location Date Provider Diagnosis [facility] [address] [place] [address] 11/26/2024 Madhav Painting Abnormal TSH R79.89 Assessments Encounter Date Diagnosis (ICD Code) Assessment Notes Treatment Notes Treatment Clinical Notes Section Notes 11/26/2024 Abnormal TSH (ICD-10 - R79.89) Plan Of Treatment Pending Test Test Name Order Date US THYROID 11/26/2024 Progress Notes * Roque BEYOB:1995 (29 yo F)Acc No.[id number]:11/26/2024 Patient: Landy SANTIAGO :1995 A ge:29 Y S ex:Female Address:[address] [place] [address] [address], [place] [address] Subjective: * Chief Complaints: * L abs/ echo * Medical History: * Surgical History: * Hospitalization/Major Diagno stic Procedure: * Medications: Objective: * Vitals: * Physical Examination: Assessment: * Assessment: 1. A bnormal TSH - R79.89 (Primary) Plan: * Treatment: * Procedure Codes: * true * Date: Generated for Printi ng/Faxing/eTransmitting on: 0 12/04/2024 11:01 AM EDT
--- NOTE | 2024-12-04 11:00 | US_ITS ---
The [address] [address] Patient Name: FARHAD BEY MRN: [id number] date: 1995 Sex: F Assigned Patient Location: US Current Patient Location: US Accession/Order Number: [id number] Exam Date: 12/04/2024 12:04 Report Date: 12/04/2024 12:06 At the request of: YAHIR FENG MD Procedure: US thyroid THYROID ULTRASOUND COMPARISON: 04/20/2023 CLINICAL DATA: Abnormal TSH. The right thyroid lobe measures 4.3 x 1.5 x 1.4 cm . The left lobe measures 3.5 x 1.1 x 0.9 cm . The Isthmus measures 3 mm . There is lobulated thyroid contour and heterogeneous echogenicity. No discrete thyroid nodules were visualized today. US/US thyroid IMPRESSION: HETEROGENEOUS LOBULATED THYROID. NO DISCRETE NODULARITY. Impression dictated by: Arleth Morel M.D. 12/04/2024 12:06 PM Dictation Location: [place] [address] Electronically authenticated by: [id number] Y Date: 12/04/2024 12:06
--- OUTSIDE RECORDS SUMMARY | 2024-12-04 11:00 | XMS_ITS | Encounter Summary ---
Author Organization [facility] tem Address [id number] [address] [place] [address] Care Team Providers Care Real Estate Salesperson Name Role Phone Edgardo Painting MD Primary Care Provider [phone] Encounter Details Date Type Department Care Team (Late st Contact Info) Description 09/10/2020 Orders Only [facility] [address] [place] [address], [address] [place] [id number] [place] [address] [place] [address] [address] [place] [address] Social History Tobacco Use Types [...] documented as of this encounter Care Teams Real Estate Salesperson Relationship Specialty Start Date End Date Edgardo Painting MD PCP - General Family Medicine 03/25/20 documented as of this encounter
--- OUTSIDE RECORDS SUMMARY | 2024-12-04 11:01 | XMS_ITS | Clinical Summary ---
Author Organization [employer] [facility] Address [id number] [address] [place] [address] Care Team Providers Care Can Technician Name Role Phone Edgardo Painting MD Primary Care Provider [phone] Allergies Active Allergy Reactions Criticality Noted Date [...] Not on file Insurance MEDICAID Care Teams Can Technician Relationship Specialty Start Date End Date Edgardo Painting MD PCP - General Family Medicine 03/25/20
--- OUTSIDE RECORDS SUMMARY | 2024-12-04 11:01 | XMS_ITS | Patient Health Record ---
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 Patient verbally understands referral process.Juanita Michelle 10/15/2024 01:16:38 PM >1st attempt to contactMARILYN Morin, Michelle 11/07/2024 02:13:43 PM >2nd attempt to contact pt, MARILYN Referral Priority Routine Medications Medication SIG (Take, Route, Frequency, Duration) Notes Start Date End Date Status Amoxicillin 500 MG 1 capsule Orally darrion ry 8 hrs for 7 days 07/24/2024 Active CeleXA 05/04/2023 Active ARIPiprazole 2 MG Oral for 30 Days Active Denta 5000 Plus 1.1 % [place] with toothpa amish morning and night. Do [...] Oral for 30 Days Active Social History Tobacco Use: Social History Observation Description Date Details (start date - stop date) Never Smoker NA - NA Sex Assigned At : Social History Observation Description Sex Assigned At Female Tobacco Use/Smoking Question Answer Notes Tobacco use: nonsmoker PRAPARE Question Answer Notes Date Completed/Updated: 08/04/2023 elmer nt entered data What is your current housing situation? I have housing patient entered data Are you worried about losing your housing? No patient entered data What is the highest level of school that you have finished? 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 Check all that apply I do not have problems meeting my needs patient entered data Has lack of transportation k ept you from medical appointments, meetings, work or from getting things needed for daily living? No patient entered anel a How often do you see or talk to people that you care about and feel close to? (For example: talking to friends on the phone, visiting friends or family, going to christianity or club meetings) 3 to 5 times a week patient entered data How stressed are you? Stress is when someone feels tense, nervous, anxious, or can't sleep at night because their mind is troubled A little bit patient entered data In the past year have you sp ent more than 2 nights in a row in a nursing home, custodial, assisted center, or juvenile correctional facility? No patient entered anel a Are you a refugee? No patient en tered data What country are you from? [place] dottie sevillant entered data Do you feel physically and emotionally safe where you currently live? Yes patient entered data In the past year, have you b een afraid of your partner or ex-partner? No patient entered data PRAPARE Score: 4 Section Notes: Nutrition counseling focusin g on a low sodium and low sugar diet discussed with the patient, as well as appropriate weekly exercise and increased activity as tolerated to work towards a more optimal body mass index for improved overall health. Nutrition counseling focusin g on a low sodium and low sugar diet discussed with the patient, as well as appropriate weekly exercise and increased activity as tolerated to work towards a more optimal body mass index for improved overall health. Problems Problem Type SNOMED Code ICD Code Onset Dates Problem Status W/U Status Risk Notes Problem Body mass index 25-29 - overweight (833747124) BMI 26.0-26.9, adult (Z68.26) Active confirmed Vital Signs Heart Rate 64 /min 07/24/2024 Blood pressure diastolic 57 mm Hg 07/24/2024 Height-cm 162.56 cm 07/24/2024 Weight-kg 70.31 kg 07/24/2024 Height 64 in 07/24/2024 Blood pressure systolic 109 mm Hg 07/24/2024 Weight 155 lbs 07/24/2024 BMI 26.6 kg/m2 07/24/2024 Encounters Encounter Location Date Provider Diagnosis [facility] [address] [place] [id number] 02/03/2024 Sakshi Rodriguez BMI 26.0-26.9,adul t Z68.26 ; Dietary counseling Z71.3 ; Exercise counseling Z71.82 and Dental caries into dentine K02.62 [facility] [address] [place], [place] [id number] 07/24/2024 Sakshi Rodriguez BMI 26.0-26.9,adul t Z68.26 ; Dietary counseling Z71.3 ; Exercise counseling Z71.82 ; Encounter for screening for dental disorders Z13.84 ; Encounter for dental examination and cleaning with abnormal findings Z01.21 ; 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 and Dental nondenominational status Z98.[address] [place] [id number] 07/19/2024 Sakshi Rodriguez Assessments Encounter Date Diagnosis (ICD Code) Assessment Notes Treatment Notes Treatment Clinical Notes Section Notes 02/03/2024 BMI 26.0-26.9,adult (ICD-10 - Z68.26) 07/24/2024 BMI 26.0-26.9,adult (ICD-10 - Z68.26) 07/24/2024 Dietary counseling (ICD-10 - Z71.3) 02/03/2024 Dietary counseling (ICD-10 - Z71.3) 02/03/2024 Exercise counseling (ICD-10 - Z71.82) 07/24/2024 Exercise counseling (ICD-10 - Z71.82) 02/03/2024 Dental caries into dentine (ICD-10 - K02.62) 07/24/2024 Encounter for screening for dental disorders (ICD-10 - Z13.84) 07/24/2024 Encounter for dental examination and cleaning with abnormal findings (ICD-10 - Z01.21) 07/24/2024 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
--- OUTSIDE RECORDS SUMMARY | 2024-12-04 11:01 | XMS_ITS | Clinical Summary ---
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 Hearing loss of left ear 04/17/2020 Perforation of left tympanic membrane 03/27/2020 Hypothyroidism affecting in first trim omar 07/13/2018 Obesity affecting in first trimester ( [facility] 07/13/2018 Encounters Date Type Department Care Team Description 09/19/2024 4:00 PM EDT Office Visit [place] [id number] [place] [address] [address] Serenity Rodriguez NP Hypersomnia (Primary Dx); Periodic limb movement 09/19/2024 Bamboo flowsheet [place] [address] [place] [address] [address] Serenity Rodriguez NP 09/14/2024 Refill [place] [address] [address] Serenity Rodriguez NP Hypersomnia from [...] 04/27/2021, 04/18/2019, 04/04/2017, Additional history exists Insurance [facility] MEDICAID Member Subscriber Plan / Payer (Ef fective 2022-Present) Name:Claus Landy Relation to Subscriber:Self Name:Claus Landy Payer ID:Not on file Group ID:Not on file Type:Not on file Address: [place] [phone] Care Teams Automotive Refinish Technician Relationship Specialty Start Date End Date Edgardo Painting MD PCP - General Family Medicine 11/17/22 Aracely Sanchez DO [address] [place] [address] Referring Physician Neurology 09/19/24 Serenity Rodriguez NP [address] [place] [address] Nurse Practitioner Neurology 09/19/24
--- OUTSIDE RECORDS SUMMARY | 2024-12-04 11:01 | XMS_ITS | Encounter Summary ---
Author Organization [facility] Address [id number] [address] [place] [address] Care Team Providers Care Southeast Regional Sales Manager Name Role Phone Edgardo Painting MD Primary Care Provider [phone] Encounter Details Date Type Department Care Team (Late st Contact Info) Description 08/13/2020 Telephone [facility] [address] [facility], [address] [address] Ayo Sofia MD [address] [facility] [address] [place], [place] [id number] Social History Tobacco Use Types Packs/Day Years [...] PM EST She has been scheduled for [id number] with audio documented in this encounter Plan of Treatment Not on file documented as of this encounter Visit Diagnoses Not on filedocumented in this encounter Additional Health Concerns Infection Onset Date Last Indicated Resolved Time COVID-19 Rule-Out 11/22/2020 11/22/2020 11/22/2020 9:30 PM EDT Assessment Noted Time PHQ-9 Depression Total Score: 0 05/28/20 20 2:22 PM EST documented as of this encounter Care Teams Southeast Regional Sales Manager Relationship Specialty Start Date End Date Edgardo Painting MD PCP - General Family Medicine 03/25/20 documented as of this encounter
--- OUTSIDE RECORDS SUMMARY | 2024-12-04 11:01 | XMS_ITS | Encounter Summary ---
Author Organization [facility] Address [id number] [address] [place] [address] Care Team Providers Care Waste Water Treatment Plant Operator Name Role Phone Edgardo Painting MD Primary Care Provider [phone] Encounter Details Date Type Department Care Team (Late st Contact Info) Description 04/23/2020 Orders Only [facility] [address] [place] [id number] External, Scanning Provider Social History Tobacco Use [...] documented as of this encounter Care Teams Waste Water Treatment Plant Operator Relationship Specialty Start Date End Date Edgardo Painting MD PCP - General Family Medicine 03/25/20 documented as of this encounter
--- OUTSIDE RECORDS SUMMARY | 2024-12-04 11:01 | XMS_ITS | Patient Health Record ---
Author Organization [facility] in [place] Address [address] [place] [address] Care Team Providers Care Agricultural Labor [employer] Manager Name Role Phone Mert Madhav Primary Care Provider [phone] YAHIR PAINTING Unavailable [phone] Allergies Allergen (clinical drug ingredient) Drug/Non Drug Allergy documented on EMR Reaction Allergy Type Onset Date Status ciprofloxacin Ciprofloxacin hives/ facial swelling Drug Allergy Active Results Component Value Reference Range Notes BNP Reviewed date:09/27/2024 08:03:42 PM Interpretation: Performing Lab: Notes/Report: [facility] , NT Pro B Type Natriuretic Pept 26.0 <=450.0 pg/mL Performing Lab: see note ML - [facility] LB CBC AUTO DIFF Reviewed date:09/27/2024 08:03:42 PM Interpretation: Performing Lab: Notes/Report: [facility] , White Blood Count 7.7 4.0-11.0 10 3/uL Red Blood Count 4.19 4.20-5.40 10 6/uL Hemoglobin 13.1 12.0-16.0 g/dL Hematocrit 39.6 36.0-48.0 % Mean Corpuscular Volume 94.5 81.0-99.0 fL Mean Corpuscular Hemoglobin 31.3 26.7-34.0 pg Mean Corpuscular HGB Conc 33.1 29.9-35.2 g/dL Red Cell Distribution Width 12.2 11.0-15.0 % Platelet Count 321 150-450 10 3/uL Mean Platelet Volume 9.7 9.5-13.5 fL Neutrophils Percent Auto 56.9 43.0-75.0 % Lymphocytes Percent Auto 33.0 20.5-60.0 % Monocytes Percent Auto 8.3 1.7-12.0 % Eosinophils Percent Auto 1.0 0.9-7.0 % Basophils Percent Auto 0.7 0.2-2.0 % Immature Granulocytes Pct Auto 0.1 0.0-0.5 % Neutrophils Absolute Auto 4.4 1.4-6.5 10 3/uL Lymphocytes Absolute Auto 2.5 1.2-3.8 10 3/uL Monocytes Absolute Auto 0.6 0.3-0.8 10 3/uL Eosinophils Absolute Auto 0.1 0.0-0.7 10 3/uL Basophils Absolute Auto 0.1 0.0-0.1 10 3/uL Immature Granulocytes Abs Auto 0.01 0.00-0.03 10 3/uL Performing Lab: see note - [facility] PROF 14(COMP METB) Reviewed date:09/27/2024 08:03:42 PM Interpretation: Performing Lab: Notes/Report: [facility] , Sodium 138 136-145 mmol/L Potassium 3.5 3.5-5.1 mmol/L Chloride 104 98-107 mmol/L Carbon Dioxide 28.4 21.0-32.0 mmol/L Anion Gap 9.1 Glucose 88 74-106 mg/dL Blood Urea Nitrogen 9.0 7.0-18.0 mg/dL Creatinine 0.64 0.55-1.02 mg/dL Estimated GFR ( Cornelia >60 >=60 mL/min/1.73m 2 Estimated GFR (Non- Tnaesha >60 >=60 mL/min/1.73m 2 BUN Creatinine Ratio 14.1 Calcium 8.8 8.5-10.1 mg/dL Bilirubin Total 0.6 0.2-1.0 mg/dL Aspartate Amino Transferase 18 15-37 U/L Alanine Aminotransferase 33 14-59 U/L Alkaline Phosphatase 105 46-116 U/L Total Protein 7.5 6.4-8.2 g/dL Albumin Level 3.7 3.4-5.0 g/dL Globulin 3.8 Albumin Globulin Ratio 1.0 Performing Lab: see note ML - [facility] LB FREE T4 Reviewed date:09/27/2024 08:03:42 PM Interpretation: Performing Lab: Notes/Report: [facility] , Free T4 1.47 0.76-1.46 ng/dL Performing Lab: see note ML - [facility] LB CA echo doppler complete Reviewed date:11/26/2024 08:56:26 PM Interpretation: Performing Lab: Notes/Report: Source Facility: [facility]-[address] [place] [address] [place] [address] Cardiology Report Signed Patient: FARHAD BEY MR#: [id number] : 1995 Acct:[id number] Age/Sex: 29 / F ADM Date: 11/26/24 Loc: CARD Attending Dr: Yahir Painting M.D. Ordering Physician: Yahir Painting M.D. Date of Service: 11/26/24 Procedure(s): CA echo doppler complete Accession Number(s): [id number] cc: Yahir Painting M.D. Patient Name: FARHAD BEY MR#: [id number] : 1995 Exam Date: 11/26/2024 Ordering Doctor: DR YAHIR PAINTING . ECHOCARDIOGRAM REPORT PROCEDURE: CA ECHO DOPPLER COMPLETE INDICATIONS: Dyspnea COMPARISON: None. DESCRIPTION: COMPLETE ECHOCARDIOGRAM Real-time transthoracic echocardiography with 2D, M-mode, spectral and color flow Doppler performed. QUALITY: Technical quality was good. LEFT VENTRICLE: Normal chamber size. Normal left ventricular wall thickness. Normal left ventricle systolic function without wall motion abnormalities, calculated left ventricular ejection fraction is 65%. LV EF: Normal left ventricular ejection fraction, (>55%). DIASTOLIC: Normal diastolic function. ATRIAL SEPTUM: Visually appears intact. LEFT ATRIUM: Normal chamber size. RIGHT ATRIUM: Normal chamber size. RIGHT VENTRICLE: Normal chamber size. Normal right ventricular systolic function. TRICUSPID VALVE: Normal mobility and thickness. trivial regurgitation. No evidence of pulmonary hypertension.RVSP 22 mmHg MITRAL VALVE: Normal mobility and thickness. There is no mitral annular calcification. No mitral regurgitation or stenosis. AORTIC VALVE: Normal trileaflet appearance. No visible sclerosis. Normal leaflet mobility. No aortic regurgitation. AORTIC ROOT: Normal diameter and appearance. PULMONIC VALVE: Normal thickness and mobility. No regurgitation or stenosis. PERICARDIUM: No evidence of pericardial effusion. IVC: Collapes with inspirations. IVC is normal in size. PLEURA: CONCLUSION: Normal left ventricle size, wall thickness, and systolic function without wall motion abnormalities, calculated ejection fraction 65% Normal left ventricular diastolic function Normal right ventricle size and systolic function No significant valvular abnormalities Adult Echocardiography Procedure Report Left Ventricle LVEDD (3.7 - 5.6 cm): 3.66 cm LVESD (2.2 - 4.0 cm): 2.83 cm LVIVS thickness (0.6 - 1.2 cm): 0.71 cm LVPW thickness (0.5 - 1.0 cm): 0.76 cm e': 0.23 m/s E - e': 3.30 LVOT Max Gradient: 5.16 mm[Hg] LVOT Area (cm2): 1.14 m/s Peak Velocity (LVOT): 1.14 m/s Mean Velocity (LVOT): 0.76 m/s LVOT Diameter 2.15 cm Left Atrium LA Volume Index (2D A2C): 34.32 ml/m2 Left Atrium Systolic Dimension: 3.04 cm Mitral Valve MV E to A Ratio: 1.91 Mitral Valve A-Wave Peak Velocity: 0.40 m/s Mitral Valve E-Wave Peak Velocity: 0.77 m/s Right Ventricle Aorta AO Root Diam: 2.89 cm Aortic Valve AoV Area (Peak Rajinder): 3.77 cm2, 3.77 cm2 Peak Velocity(Antegrade Flow): 1.09 m/s Peak Gradient(Antegrade Flow): 4.74 mm[Hg] Tricuspid Valve Peak Velocity (Regurgitant Flow): 2.18 m/s Pulmonic Valve Mean Gradient: 1.84 mm[Hg] Mean Velocity: 0.64 m/s Peak Velocity: 0.87 m/s, 0.76 m/s Peak Gradient: 2.32 mm[Hg], 3.02 mm[Hg] Right Atrium Right Atrium Systolic Pressure: 33.07 ml, 33.07 ml Dictated by: Mehul Perez MD on 11/26/2024 at 18:22 Approved by: Mehul Perez MD on 11/26/2024 at 18:26 Dictated By: Mehul Perez M.D. Signed By: 11/26/241826 DD/ 25 TD/TT: Sharepoint Developer: [address] [address] Cardiology Report Signed Patient: FRANCISCO BEY MR#: [id number] : 1995 Acct:[id number] Age/Sex: 29 / F ADM Date: 11/26/24 Loc: CARD Attending Dr: Myron Painting M.D. Ordering Physician: Yahir Painting M.D. Date of Service: 11/26/24 Procedure(s): CA ech o doppler complete Accession Number(s): [id number] cc: Yahir Painting M.D. Patient Name: FARHAD BEY MR#: [id number] : 1995 Exam Date: 11/26/2024 Ordering Doctor: DR YAHIR PAINTING . ECHOCARDIOGRAM REPORT PROCEDURE: CA ECHO DOPPLER COMPLETE INDICATIONS: Dyspnea COMPARISON: None. DESCRIPTION: COMPLET E ECHOCARDIOGRAM Real-time transthoracic echocardiography wit h 2D, M-mode, spectral and color flow Doppler performed. QUALITY: Technical quality was good. LEFT VENTRICLE: Norm al chamber size. Normal left ventricular wall thickness. Normal le ft ventricle systolic function without wall motion abnormalities, calculated left ventricular ejection fraction is 65%. LV EF: Normal left ventricular ejection fraction, (>55%). DIASTOLIC: Normal diastolic function. ATRIAL SEPTUM: Visua lly appears intact. LEFT ATRIUM: Normal chamber size. RIGHT ATRIUM: Normal chamber size. RIGHT VENTRICLE: Nor mal chamber size. Normal right ventricular systolic function. TRICUSPID VALVE: Nor mal mobility and thickness. trivial regurgitation. No evidence of pulmonar y hypertension.RVSP 22 mmHg MITRAL VALVE: Normal mobility and thickness. There is no mitral annular calcification. No mi tral regurgitation or stenosis. AORTIC VALVE: Normal trileaflet appearance. No visible sclerosis. Normal leaflet mobility. No aortic regurgitation. AORTIC ROOT: Normal diameter and appearance. PULMONIC VALVE: Norm al thickness and mobility. No regurgitation or stenosis. PERICARDIUM: No evid ence of pericardial effusion. IVC: Collapes with inspirations. IVC is normal in size. PLEURA: CONCLUSION: Normal left ventricl e size, wall thickness, and systolic function without wall motion abnormalities , calculated ejection fraction 65% Normal left ventricu lar diastolic function Normal right ventric le size and systolic function No significant valvu lar abnormalities Adult Echocardiograp hy Procedure Report Left Ventricle LVEDD (3.7 - 5.6 cm) : 3.66 cm LVESD (2.2 - 4.0 cm) : 2.83 cm LVIVS thickness (0.6 - 1.2 cm): 0.71 cm LVPW thickness (0.5 - 1.0 cm): 0.76 cm e': 0.23 m/s E - e': 3.30 LVOT Max Gradient: 5 .16 mm[Hg] LVOT Area (cm2): 1.1 4 m/s Peak Velocity (LVOT) : 1.14 m/s Mean Velocity (LVOT) : 0.76 m/s LVOT Diameter 2.15 cm Left Atrium LA Volume Index (2D A2C): 34.32 ml/m2 Left Atrium Systolic Dimension: 3.04 cm Mitral Valve MV E to A Ratio: 1.91 Mitral Valve A-Wave Peak Velocity: 0.40 m/s Mitral Valve E-Wave Peak Velocity: 0.77 m/s Right Ventricle Aorta AO Root Diam: 2.89 cm Aortic Valve AoV Area (Peak Rajinder): 3.77 cm2, 3.77 cm2 Peak Velocity(Antegr rich Flow): 1.09 m/s Peak Gradient(Antegr rich Flow): 4.74 mm[Hg] Tricuspid Valve Peak Velocity (Regurgitant Flow): 2.18 m/s Pulmonic Valve Mean Gradient: 1.84 mm[Hg] Mean Velocity: 0.64 m/s Peak Velocity: 0.87 m/s, 0.76 m/s Peak Gradient: 2.32 mm[Hg], 3.02 mm[Hg] Right Atrium Right Atrium Systoli c Pressure: 33.07 ml, 33.07 ml Dictated by: Mehul Perez MD on 11/26/2024 at 18:22 Approved by: Mehul Perez MD on 11/26/2024 at 18:26 Dictated By: Mehul Perez M.D. Signed By: 11/26/241826 DD/ 25 TD/TT: Sharepoint Developer: TRISH chest 2V Reviewed date:09/28/2024 12:47:37 PM Interpretation: Performing Lab: Notes/Report: Source Facility: [facility]-[address] [place] [address] [place] [id number] XRay Report Signed Patient: FARHAD BEY MR#: [id number] : 1995 Acct:[id number] Age/Sex: 29 / F ADM Date: 09/27/24 Loc: LAB Attending Dr: Yahir Painting M.D. Ordering Physician: Yahir Painting M.D. Date of Service: 09/27/24 Procedure(s): XR chest 2V Accession Number(s): [id number] cc: Yahir Painting M.D. [place] [id number] Patient Name: FARHAD BEY MRN: [id number] date: 1995 Sex: F Assigned Patient Location: LAB Current Patient Location: LAB Accession/Order Number: [id number] Exam Date: 09/27/2024 20:51 Report Date: 09/27/2024 20:52 At the request of: YAHIR PAINTING MD Procedure: XR chest 2V PA AND LATERAL CHEST: CLINICAL HISTORY: Dyspnea; R06.00 COMPARISON: 06/20/2022 There is no focal parenchymal consolidation, effusion or pneumothorax. The cardiac, hilar and mediastinal silhouettes are within normal limits. There is no vascular congestion. The visualized bony thorax is intact. XR/XR chest 2V IMPRESSION: NO ACUTE CARDIOPULMONARY ABNORMALITY. Impression dictated by: Arleth Morel M.D.09/27/2024 8:52 PM Dictation Location: [place] [address] Electronically authenticated by: [id number] Y Date: 09/27/2024 20:52 Dictated By: Arleth Morel M.D. Signed By: 09/27/242053 DD/ 51 TD/TT: Sharepoint Developer: [place] [id number] XRay Report Signed Patient: FRANCISCO BEY MR#: [id number] : 1995 Acct:[id number] Age/Sex: 29 / F ADM Date: 09/27/24 Loc: LAB Attending Dr: Myron Painting M.D. Ordering Physician: Yahir Painting M.D. Date of Service: 09/27/24 Procedure(s): XR [facility] st 2V Accession Number(s): [id number] cc: Yahir Painting M.D. The [address] [address] Patient Name: FARHAD BEY MRN: [id number] date: 1995 Sex: F Assigned Patient Location: LAB Current Patient Location: LAB Accession/Order Numb er: [id number] Exam Date: 09/27/2024 20:51 Report Date: 09/27/2024 20:52 At the request of: YAHIR PAINTING MD Procedure: XR chest 2V PA AND LATERAL CHEST: CLINICAL HISTORY: Dyspnea; R06.00 COMPARISON: 06/20/2022 There is no focal parenchymal consolidation, effusion or pneumothorax. The cardiac, hilar and mediastinal silhouettes are within normal limits. There is no vascular congestion. The visualized bony thorax is intact. X R/XR chest 2V IMPRESSION: NO ACUTE CARDIOPULMO NARY ABNORMALITY. Impression dictated by: Arleth Morel M.D.09/27/2024 8:52 PM Dictation Location: [place] [address] Electronically authenticated by: [id number] Y Date: 09/27/2024 20:52 Dictated By: Arleth Morel M.D. Signed By: 09/27/242053 DD/ 51 TD/TT: Sharepoint Developer: Troponin I High Sensitivity Reviewed date:09/27/2024 08:03:42 PM Interpretation: Performing Lab: Notes/Report: [facility] , Troponin I High Sensitivity <4.0 4.0-51.3 pg/mL USED IN ISOLATION BUT SHOULD BE INTERPRETED IN CONJUNCTION 99TH PERCENTILE = 51.4 PG/ML NOTE: HIGH-SENSITIVITY TROPONIN ASSAY IS NOT INTENDED TO BE UNIVERSAL DEFINITION OF MYOCARDIAL INFARCTION. THE UPPER CUT-OFF POINTS HAVE BEEN ESTABLISHED BASED ON THE FOURTH PERCENTILE OF cTnI DISTRIBUTION IN A REFERENCE POPULATION, HAS BEEN CONFIRMED THE DECISION THRESHOLD FOR OR DIAGNOSIS. REFERENCE LIMIT (URL) OF TROPONIN, DEFINED THE 99TH WITH OTHER DIAGNOSTIC AND CLINICAL INFORMATION. Performing Lab: see note ML - [facility] LB TSH Reviewed date:09/27/2024 08:03:42 PM Interpretation: Performing Lab: Notes/Report: [facility] , Thyroid Stimulating Hormone <0.007 0.358-3.740 uIU/mL Performing Lab: see note ML - [facility] LB TSH Reviewed date:11/26/2024 08:56:26 PM Interpretation: Performing Lab: Notes/Report: [facility] , Thyroid Stimulating Hormone <0.007 0.358-3.740 uIU/mL Performing Lab: see note ML - [facility] LB T4 Reviewed date:11/26/2024 08:56:26 PM Interpretation: Performing Lab: Notes/Report: [facility] , T4 Thyroxine 5.20 4.80-13.90 ug/dL Performing Lab: see note ML - [facility] LB FREE T3 Reviewed date:11/26/2024 08:56:26 PM Interpretation: Performing Lab: Notes/Report: [facility] , Free T3 2.49 2.18-3.98 pg/mL Performing Lab: see note ML - [facility] LB Reason For Referral Diagnosis 1 Narcolepsy (G47.419) Referral Organization [facility] Referring Provider First Name YAHIR Referring Provider Last Name MERT Referring Provider Speciality Family [facility] arianne Referred Provider Aracely Sanchez Referred Provider Specialty Neurology Referral Priority Routine Medications Medication SIG (Take, Route, Frequency, Duration) Notes Start Date End Date Status Levothyroxine Sodium 200 MCG TAKE 1 TABL ET BY MOUTH EVERY MORNING ON AN EMPTY STOMACH for 30 Active Liothyronine Sodium 5 MCG take 1 tablet by mouth once daily for 30 days Active Pristiq 50 MG 1 tablet Orally Once a day for 30 days 07/22/2023 Active hydrOXYzine HCl 25 MG 1 Orally QID PRN 05/03/2023 Active Ferrous Sulfate 325 (65 Fe) MG 1 tablet Orally Twice Daily for 30 days 10/27/2023 Active Social History Tobacco Use: Social History Observation Description Date Details (start date - stop date) Never Smoker NA - NA Tobacco Use/Smoking Question Answer Notes Patient is a nonsmoker Alcohol Screen (Audit-C) Question Answer Notes Did you have a drink containing alcohol in the p ast year? No Points 0 Interpretation Negative AUDIT-C (Standard) Question Answer Notes Did you have a drink containing alcohol in the p ast year? No Points 0 Interpretation Negative Problems Problem Type SNOMED Code ICD Code Onset Dates Problem Status W/U Status Risk Notes Problem 834737530 Hypothyroidism, unspecified (E03.9) Active confirmed Problem 39338114 Vitamin D deficiency, unspecified (E55.9) Active confirmed Problem Anxiety (79880512) Anxiety (F41.9) Active confirmed Problem Depression (073808870) Depression (F32.9) Active confirmed Problem Dyspnea (314525309) Dyspnea (R06.00) Active confirmed Problem Pressure in Chest (29142158) Chest pressure (R07.89) Active confirmed Problem Narcolepsy (00947729) Narcolepsy (G47.419) Active confirmed Problem Neck sprain (132008232) Neck strain (S16.1XXA) Active confirmed Problem Head contusion (S00.93XA) Active confirmed Vital Signs Blood pressure diastolic 84 mm Hg 09/26/2024 Height 64 in 09/26/2024 Blood pressure systolic 126 mm Hg 09/26/2024 Weight 161 lbs 09/26/2024 BMI 27.63 kg/m2 09/26/2024 Procedures Procedure Date Ordered Date Performed Result Body Sit e CARDIO Echocardiogram 09/26/2024 N/A Encounters Encounter Location Date Provider Diagnosis [place] [address] [place] [address] 09/26/2024 Madhav Hoy Dyspnea R06.00 and Chest pressure R07.89 [facility] [address] [place] [address] 12/09/2023 YAHIR HOY Narcolepsy G47.419 [facility] [address] [place] [address] 12/20/2023 YAHIR HOY Hypothyroidism, unspecified E03.9 [facility] [address] [place] [address] 01/05/2024 Madhav Hoy [facility] [address] [place] [address] 06/26/2024 Madhav Hoy Well adult Z00.00 [facility] [address] [place] [place] [address] 07/23/2024 Madhav danna [facility] [address] [place] [address] 07/27/2024 Madhav Hoy Hypothyroidism, unspecified E03.9 ; Other fatigue R53.83 ; Encounter for general adult medical examination without abnormal findings Z00.00 and Vitamin D deficiency, unspecified E55.9 [facility] [address] [place] [address] 07/31/2024 Madhav danna [facility] [address] [place] [address] 07/31/2024 Madhav danna [facility] [address] [place] [address] 08/20/2024 Madhav Painting [facility] [address] [place] [facility] [place] [address] 09/17/2024 Madhav Hoy Well adult Z00.00 [facility] [address] [place] [place] [address] 09/17/2024 Madhav Hoy Well adult Z00.00 [facility] [address] [place] [address] 09/20/2024 Madhav danna [facility] [address] [place] [address] 09/27/2024 Madhav Hoy Hypothyroidism, unspecified E03.9 [place] [address] [place] [address] 09/28/2024 Madhav danna [facility] [address] [place] [address] 11/26/2024 Madhav Painting Abnormal TSH R79.89 Assessments Encounter Date Diagnosis (ICD Code) Assessment Notes Treatment Notes Treatment Clinical Notes Section Notes 09/26/2024 Dyspnea (ICD-10 - R06.00) 09/26/2024 Chest pressure (ICD-10 - R07.89) 12/09/2023 Narcolepsy (ICD-10 - G47.419) 12/20/2023 Hypothyroidism, unspecified (ICD-10 - E03.9) 06/26/2024 Well adult (ICD-10 - Z00.00) 07/27/2024 Hypothyroidism, unspecified (ICD-10 - E03.9) 07/27/2024 Other fatigue (ICD-10 - R53.83) 09/17/2024 Well adult (ICD-10 - Z00.00) 09/17/2024 Well adult (ICD-10 - Z00.00) 09/27/2024 Hypothyroidism, unspecified (ICD-10 - E03.9) 11/26/2024 Abnormal TSH (ICD-10 - R79.89) 07/27/2024 Encounter for general adult medical examination without abnormal findings (ICD-10 - Z00.00) 07/27/2024 Vitamin D deficiency, unspecified (ICD-10 - E55.9) Plan Of Treatment Pending Test Test Name Order Date CMP (COMPLETE METABOLIC PANEL) T3 FREE, T4 FREE and TSH 09/05/2023 CARDIO Echocardiogram 09/26/2024 B12/FOLATE 10/25/2023 FECAL OCCULT BLOOD 10/25/2023 High Sensitivity Troponin 09/26/2024 CBC AUTO DIFF 01/05/2023 CBC AUTO DIFF 07/27/2024 GAYLE - VITAMIN D 07/27/2024 GAYLE - VITAMIN D 10/25/2023 GLYCOHEMOGLOBIN A1C 01/05/2023 GLYCOHEMOGLOBIN A1C 07/27/2024 LIPID PROFILE 07/27/2024 PROF 14(COMP METB) 01/05/2023 PROF 14(COMP METB) 07/27/2024 THYROID PROFILE WITH TSH 10/25/2023 THYROID PROFILE WITH TSH 09/06/2023 THYROID PROFILE WITH TSH 01/05/2023 THYROID PROFILE WITH TSH 09/26/2024 THYROID PROFILE WITH TSH 01/08/2023 US THYROID 11/26/2024 XR CHEST 2 V 09/26/2024 THYROID PANEL (T4/TSH/FREE T3) 5 THYROID PANEL (T4/TSH/FREE T3) 5 Insurance Providers Payer Name Payer Address Payer Phone Subscriber Number Group Number Insured Name Patient Relationship to Insured Coverage Start Date Coverage End Date [facility] [address] 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 Traore [address] Traore 09/07/2022
--- OUTSIDE RECORDS SUMMARY | 2024-12-04 11:01 | XMS_ITS | Encounter Summary ---
Author Organization [facility] Address [facility] [address] [place] [address] Care Team Providers Care Engineering Technical Analyst Name Role Phone Edgardo Painting MD Primary Care Provider [phone] Encounter Details Date Type Department Care Team (Late st Contact Info) Description 04/23/2020 Orders Only [facility] [address] [place] [id number] External, Scanning Provider Social History Tobacco Use [...] documented as of this encounter Care Teams Engineering Technical Analyst Relationship Specialty Start Date End Date Edgardo Painting MD PCP - General Family Medicine 03/25/20 documented as of this encounter
--- OUTSIDE RECORDS SUMMARY | 2024-12-04 11:02 | XMS_ITS | Encounter Summary ---
Author Organization [facility] tem Address [id number] [address] [place] [address] Care Team Providers Care Staff Cytotechnologist Name Role Phone Edgardo Painting MD Primary Care Provider [phone] Encounter Details Date Type Department Care Team (Late st Contact Info) Description 03/11/2021 Orders Only [facility] - E[facility] [address] [place] [address], [address] [place] [id number] [place] [address] [place] [address] [address] [place] [address] Social History Tobacco Use Types [...] documented as of this encounter Care Teams Staff Cytotechnologist Relationship Specialty Start Date End Date Edgardo Painting MD PCP - General Family Medicine 03/25/20 documented as of this encounter
== END 2024-12-04 10:58 | disposition home or self-care (01) ==
LOC: US 10:57
PROVIDERS: PCP Family Medicine; Visit Provider Family Medicine
DX: R79.89 Other specified abnormal findings of blood chemistry (principal)
CPT/HCPCS: 76536

== ENCOUNTER 2025-05-08 15:11 | Outpatient (REF) | payer OTHER, SELFPAY ==
--- OUTSIDE RECORDS SUMMARY | 2024-05-07 07:45 | XMS_ITS ---
Author Organization [facility] vices Address [address] [place] [phone] Care Team Providers Care Industrial Registered Nurse Name Role Phone Michael Sakshi Unavailable [phone] REASON FOR VISIT CANCEL- Rest #9-ML, #10-L Social History Sex Assigned At : Social History Observation Description Sex Assigned At Female Encounters Encounter Location Date Provider Diagnosis [facility] [address] [place], [place] [phone] 05/07/2024 Sakshi Rodriguez Plan Of Treatment No Information Progress Notes * Julia DEVLINChaimOB:1995 (30 yo F)Acc No.[id number]:05/07/2024 Patient:?Landy Devlin :?Sakshi Rodriguez DMDDOB:1995???Age:29 Y ???Sex:FemaleDate:05/07/2024hone:[phone]:[address] [facility] [address], [facility] Subjective: * Chief Complaints: * C ANCEL- Rest #9-ML, #10-L * Electronic signature of Sakshi Rodriguez DMD on 05/08/2025 at 03:18 PM ESTSign off status: Pending * Provider: Angela Rodriguez DMD Date: 07/07/2023 Generated for Printing/Faxing/eTransmitting on:?05/08/2025 03:18 PM EST
--- OUTSIDE RECORDS SUMMARY | 2024-08-10 04:45 | XMS_ITS ---
Author Organization [facility] vices Address [address] [place] [phone] Care Team Providers Care Labor Relations Specialist Name Role Phone Sakshi Rodriguez Unavailable [phone] REASON FOR VISIT Recall (A) (31) Medications Medication SIG (Take, Route, Frequency, Duration) Notes Start Date End Date Status Amoxicillin 500 MG Capsule 1 capsule Orally ever y 8 hrs; Duration: 7 days 4525KtristFilsSB21/15/2023ctiveARIPiprazole 2 MG TabletOral; Duration: 30 DaysActiveDenta 5000 Plus 1.1 % CreamBrush with toothpaste morning and night. Do not rinse after use. Dental Two times a day; Duration: 30 days05/04/2023ctive Amoxicillin-Pot Clavulanate 875-125 MG TabletOral; Duration: 10 DaysActive Levothyroxine Sodium 200 MCG TabletOral; Duration: 30 DaysActivehydrOXYzine HCl 25 MG TabletOral; Duration: 7 DaysActiveCitalopram Hydrobromide 40 MG Tablet Oral; Duration: 30 DaysActiveLiothyronine Sodium 5 MCG TabletOral; Duration: 30 DaysActive Social History Sex Assigned At : Social History Observation Description Sex Assigned At Female Encounters Encounter Location Date Provider Diagnosis [facility] [address] [place], [place] [phone] 08/10/2024 Sakshi Rodriguez Plan Of Treatment No Information Progress Notes * Roque DEVLINOB:1995 (30 yo F)Acc No.[id number]:08/10/2024 Patient:?Landy Devlin :?Sakshi Rodriguez DMDDOB:1995???Age:29 Y ???Sex:FemaleDate:08/10/2024Phone:[phone]:[address], [id number] Subjective: * Chief Complaints: * R aaron (Matty) (29) * Medications: T akinghydrOXYzine HCl 25 MG Tablet Oral Levothyroxine Sodium 200 MCG Tablet Oral Liothyronine Sodium 5 MCG Tablet Oral Citalopram Hydrobromide 40 MG Tablet Oral ARIPiprazole 2 MG Tablet Oral CeleXA Amoxicillin-Pot Clavulanate 875-125 MG Tablet Oral Denta 5000 Plus 1.1 % Cream [place] with toothpaste morning and night. Do not rinse after use. Dental Two times a day Amoxicillin 500 MG Capsule 1 capsule Orally every 8 hrs Taking hydrOXYzine HCl 25 MG Tablet Oral Taking Levothyroxine Sodium 200 MCG Tablet Oral Taking Liothyronine Sodium 5 MCG Tablet Oral Taking Citalopram Hydrobromide 40 MG Tablet Oral Taking ARIPiprazole 2 MG Tablet Oral Taking CeleXA Taking Amoxicillin-Pot Clavulanate 875-125 MG Tablet Oral Taking Denta 5000 Plus 1.1 % Cream [place] with toothpaste morning and night. Do not rinse after use. Dental Two times a day Taking Amoxicillin 500 MG Capsule 1 capsule Orally every 8 hrs Billing Information: * Procedure Codes: * Electronic signature of Sakshi Rodriguez DMD on 05/08/2025 at 03:18 PM ESTSign off status: Pending * Provider: Angela Rodriguez DMD Date: 0 08/10/2024 Generated for Printing/Faxing/eTransmitting on:?05/08/2025 03:18 PM EST
--- OUTSIDE RECORDS SUMMARY | 2025-05-08 11:00 | XMS_ITS | Encounter Summary ---
Author Organization [facility] Address [address] [place] [address] Care Team Providers Care Laser Operator Name Role Phone Edgardo Painting MD Primary Care Provider [phone] Daniel Aracely DO Unavailable [phone] Serenity Rodriguez LABOR MEDIATOR Unavailable [phone] Reason for Visit * ReasonCommentsWell Women Visit Encounter Details DateTypeDepartmentCare Team (Latest Contact Info)Iolmyitodub07/19/2025 11:00 AM ESTProcedure Visit [facility] [address] [place] [address] Deja Walsh PA [address] [place], [place] [id number] Well woman exam with routine gynecological exam Social History Tobacco UseTypesPacks/DayYears UsedDateSmoking Tobacco: NeverSmokeless Tobacco: NeverAlcohol UseStandard Drinks/WeekCommentsNot Currently0 (1 standard drink = 0.6 oz pure alcohol)CommentsNoSex and Gender InformationValueDate RecordedSex Assigned at BirthNot on fileLegal XmdGhsvhy37/15/2023 8:08 PM EDT Gender IdentityNot on fileSexual OrientationNot on filedocumented as of this encounter Last Filed Vital Signs Vital SignReadingTime TakenCommentsBlood Qczltjle212/80107/08/2024 10:59 AM EST Pulse--Temperature--Respiratory Rate--Oxygen Saturation--Inhaled Oxygen Concentration--Uvtkde60.1 kg (163 lb 6.4 oz)05/08/2025 10:59 AM ESTHeight--Body Mass Index28.0504 4:09 PM EDTdocumented in this encounter Progress Notes * Diansony Martin LPN - 05/08/2025 11:00 AM EST Reason for Appointment: Patient ID: Landy Devlin is a 30 y.o. female who presents for Well Women Visit Patient presents today for Annual Exam. MEDICATIONS Current Outpatient Medications Medication Instructions ??? desvenlafaxine (PRISTIQ) 50 mg, Daily ??? FeroSul 325 (65 Fe) MG tablet 1 tablet, 2 times daily ??? levothyroxine (SYNTHROID, LEVOXYL) 200 mcg, Every morning ??? Mirena (52 MG) 52 mg, As needed ??? Multiple Vitamin (multivitamin) capsule 1 capsule, Daily RT ??? Sunosi 150 mg, Daily ALLERGIES Allergies Allergen Reactions ??? Ciprofloxacin Hives PROBLEMS Active Ambulatory Problems Diagnosis Date Noted ??? Hearing loss of left ear 04/17/2020 ??? Hypothyroidism affecting in first trimester ([facility]) 07/13/2018 ??? Obesity affecting in first trimester ([facility]) 07/13/2018 ??? 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 Perforation of left tympanic membrane 03/27/2020 Resolved Ambulatory Problems Diagnosis Date Noted ??? No Resolved Ambulatory Problems Past Medical History: Diagnosis Date ??? Anxiety ??? Depression ??? Hypothyroid ??? Pap smear for cervical cancer screening 2022 HISTORY PAST MEDICAL HISTORY SOCIAL HISTORY Past Medical History: Diagnosis Date ??? Anxiety ??? Depression ??? Hypothyroid ??? Pap smear for cervical cancer screening 2022 negative and [facility] at [facility] Social History Tobacco Use ??? Smoking status: Never ??? Smokeless tobacco: Never Substance Use Topics ??? Alcohol use: Not Currently ??? Drug use: Never FAMILY HISTORY Family History Problem Relation Name Age of Onset ??? Breast cancer Mother ??? No Known Problems Father ??? No Known Problems Sister ??? No Known Problems Daughter SURGICAL HISTORY Past Surgical History: Procedure Laterality Date ??? CHOLECYSTECTOMY REVIEW OF SYSTEMS Review of Systems: Review of Systems Constitutional: Negative. HENT: Negative. Eyes: Negative. Respiratory: Negative. Cardiovascular: Negative. Gastrointestinal: Negative. Genitourinary: Negative. Musculoskeletal: Negative. Skin: Negative. Neurological: Negative. All other systems reviewed and are negative. Hematological: Negative. Endocrine: Negative. Allergic/Immunologic: Negative. OBJECTIVE Objective: Physical Exam Constitutional: Appearance: Normal appearance. She is well-developed. Genitourinary: Vulva normal. Right Adnexa: not tender and no mass present. Left Adnexa: not tender and no mass present. No cervical discharge. Breasts: Breasts are soft. Right: Normal. Left: Normal. HENT: Head: Normocephalic. Nose: Nose normal. Mouth/Throat: Mouth: Mucous membranes are moist. Cardiovascular: Rate and Rhythm: Normal rate and regular rhythm. Pulmonary: Effort: Pulmonary effort is normal. Breath sounds: Normal breath sounds. Abdominal: General: Bowel sounds are normal. There is no distension. Palpations: Abdomen is soft. Tenderness: There is no abdominal tenderness. There is no guarding or rebound. Musculoskeletal: General: No swelling. Normal range of motion. Cervical back: Normal range of motion. Right lower leg: No edema. Left lower leg: No edema. Neurological: General: No focal deficit present. Mental Status: She is alert and oriented to person, place, and time. Skin: General: Skin is warm and dry. Psychiatric: Mood and Affect: Mood normal. Behavior: Behavior normal. Vitals and nursing note reviewed. Exam conducted with a bread wrapper present. Vitals: Estimated body mass index is 28.05 kg/m?? as calculated from the following: Height as of 09/19/24: 5' 4 . Weight as of this encounter: 163 lb 6.4 oz. BP: 120/80 Patient's last menstrual period was 04/25/2025. Assessment/Plan ICD-10-CM 1. Well woman exam with routine gynecological exam Z01.419 Pap Smear HPV DNA probe, amplified Assessment/Plan Annual Exam: Patient presents today for an annual exam. Patient states she is doing well and has no complaints. Pap was obtained without difficulty. Patient is asking about Genetic testing as mom had breast cancer. Orders Placed This Encounter Procedures ??? HPV DNA probe, amplified Follow Up: Patient is to return in one year for annual unless needed otherwise. Documented by Dian Martin LPN on behalf of: KATIE Sky documented in this encounter Plan of Treatment NameTypePriorityAssociated DiagnosesOrder SchedulePap SmearPathology and CytologyRoutine Well woman exam with routine gynecological exam Ordered: 05/08/2025HPV DNA probe, amplifiedMicrobiologyRoutine Well woman exam with routine gynecological exam Ordered: 05/08/2025documented as of this encounter Visit Diagnoses Diagnosis Well woman exam with routine gynecological exam Routine gynecological examination documented in this encounter Care Teams Team MemberRelationshipSpecialtyStart DateEnd Date Edgardo Painting MD [address] [place] [address] PCP - GeneralFamily Medicine11/17/22 Aracely Sanchez DO [address] [place] [address] Referring PhysicianNeurology09/19/24 Serenity Rodriguez NP Nurse PractitionerNeurology09/19/24documented as of this encounter
--- OUTSIDE RECORDS SUMMARY | 2025-05-08 15:18 | XMS_ITS | Clinical Summary ---
Author Organization [facility] Address [address] [place] [address] Care Team Providers Care Manufacturing Supervisor 2Nd Shift Name Role Phone Monroe Le DMD, MD Unavailable [phone] Source Comments The following information is NOT included in Care Everywhere downloads:Psychiatric notes, ECG results, Cardiac Rehab notes, Pulmonary Function notes, data from [facility] (includes but not limited toPregnancy data,audiograms, eye exams, pre-surgical evaluation notes, well-child exam data).[facility] Immunizations ImmunizationAdministration DatesNext DueInfluenza, injectable, trivalent, preservative free (BPG=903)04/14/2016Influenza, unspecified formulation (CVX=88) 04/01/2017Pfizer Monovalent (12+ yrs) SARS-COV-2 (COVID-19) vaccine, mRNA, spike protein, LNP, pres. free, 30mcg/0.3mL dose (NKL=209)08/19/2020,07/29/2020 Social History Tobacco UseTypesPacks/DayYears UsedDateSmoking Tobacco: Never Assessed CommentsUnknownSex and Gender InformationValueDate RecordedSex Assigned at Not on fileLegal PzxNnwecr54/21/2023 3:45 PM ESTGender IdentityNot on fileSexual OrientationNot on file Plan of Treatment DateTypeDepartmentCare Team (Latest Contact Info)Idbxiedtqnl82/22/2025 8:00 AM ESTOffice Visit [facility] Oral Surgery [address] [place] [address] Monroe Le DMD, MD [address] [place] [address] Health MaintenanceDue DateLast DoneCommentsHIV Test2008Hepatitis C Ywfhsajc42/13/2011Tdap Fyailxn9405/02/2011Hepatitis A (HAV) Vaccine (optional start 19+ years)2012Hepatitis B (HBV) Vaccine (1 of 3 - 19+ 3-dose series) 2012Pap Smear2014HPV Vaccine (optional start 27-45 years)2020 COVID-19 Vaccine (3 - 2024- season)/07/2020, 07/29/2020Influenza Vaccine (#1), 04/14/2016Shingles (RZV) Vaccine (1 of 2) 2043MammographyDiscontinuedPneumococcal Vaccine(s)Aged OutNo longer eligible based on patient's age to complete this topic Insurance * Guarantor: Landy Devlin TypeRelation to PatientDate of BirthPhone Billing AddressPersonal/LrjoqxRyrq1995 [address] [address] * Guarantor: Landy Devlinunt TypeRelation to PatientDate of BirthPhone Billing YipbjbgHwemarjxuzyopRfgv1995 [address] [address] Care Teams Team MemberRelationshipSpecialtyStart DateEnd Date Monroe Le DMD, MD [address] [place], [place] [id number] PhysicianOral & Maxillofacial Oabudpq78/2/24
--- OUTSIDE RECORDS SUMMARY | 2025-05-08 15:18 | XMS_ITS | Patient Health Record ---
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 Patient verbally understands referral process.Juanita Michelle 10/15/2024 01:16:38 PM >1st attempt to contact, Juanita SANDERS Michelle 11/07/2024 02:13:43 PM >2nd attempt to contact pt, MARILYN Referral Priority Routine Medications Medication SIG (Take, Route, Frequency, Duration) Notes Start Date End Date Status Amoxicillin 500 MG Capsule 1 capsule Orally ever y 8 hrs; Duration: 7 days 9591OwiynrPpxwUW45/15/2023ctiveARIPiprazole 2 MG TabletOral; Duration: 30 DaysActiveDenta 5000 [...] MCG TabletOral; Duration: 30 DaysActive Social History Tobacco Use: Social History Observation Description Date Details (start date - stop date) Never Smoker NA - NA Sex Assigned At : Social History Observation Description Sex Assigned At Female Social History Social DeterminantsSocial InfoQuestionAnswerNotesPRAPAREDate Completed/Updated: 08/04/2023patient entered dataWhat is your current housing situation?I have housingpatient entered dataAre you worried about losing your housing?No patient entered dataWhat is the highest level of school that you have finished?More than high schoolpatient entered dataWhat is your current 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 Check all that applyI do not have problems meeting my needs patient entered dataHas lack of transportation kept you from medical appointments, meetings, work or from getting things needed for daily living?No patient entered dataHow often do you see or talk to people that you care about and feel close to? (For example: talkingto friends on the phone, visiting friends or family, going to scientologist or club meetings)3 to 5 times a week patient entered dataHow stressed are you? Stress is when someone feels tense, nervous, anxious, or can't sleep at nightbecause their mind is troubledA little bitpatient entered dataIn the past year have you spent more than 2 nights in a row in a fpc, correction, mcfp center, orjuvenile correctional facility?No patient entered dataAre you a refugee?Nopatient entered dataWhat country are you from?[place] Statespatient entered dataDo you feel physically and emotionally safe where you currently live?Yespatient entered dataIn the past year, have you been afraid of your partner or ex-partner?Nopatient entered dataPRAPARE Score:4Tobacco Use:Social InfoQuestionAnswerNotesTobacco Use/Smoking Tobacco use:nonsmokerSection Notes: Nutrition counseling focusin g on a [...] Notes Problem Body mass index 25-29 - overweig ht ([id number]) BMI 26.0-26.9,adult (Z68.26) Activeconfirmed Vital Signs Heart Rate 64 /min 07/24/2024 Height-cm162.56 cm07/24/2024lood pressure ochsczjsx52 mm Hg07/24/2024Weight-kg 70.31 kg07/24/20241112Puwkdy41 in07/24/2024lood pressure eolrdhwc104 mm Hg 07/24/20242669Qfrxmm886 lbs07/24/2024BMI26.6 kg/m207/24/2024 Encounters Encounter Location Date Provider Diagnosis [facility] [address] [place], [place] [id number] 07/24/2024 Sakshi Rodriguez BMI 26.0-26.9,adul t Z68.26 ; Dietary counseling Z71.3 ; Exercise counseling Z71.82 ; Encounter for screening for dental disorders Z13.84 ; Encounter for dental examination and cleaning with abnormal findings Z01.21 ; 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 and Dental rastafari status Z98.811 [address] [place], [place] [id number] 07/19/2024 Sakshi Rodriguez Assessments Encounter Date Diagnosis (ICD Code) Assessment Notes Treatment Notes Treatment Clinical Notes Section Notes 07/24/2024 BMI 26.0-26.9,adult (ICD-10 - Z6 8.26) 07/24/2024Dietary counseling (ICD-10 - Z71.3)07/24/2024Exercise counseling (ICD- 10 - Z71.82)07/24/2024Encounter for screening for dental disorders (ICD-10 - Z13.84)07/24/2024Encounter for dental examination and cleaning with abnormal findings (ICD-10 - Z01.21)07/24/2024Irreversible pulpitis (ICD-10 - K04.02) 07/24/2024Dental rastafari status (ICD-10 - Z98.811) Plan Of Treatment No Information Insurance Providers Payer Name Payer Address Payer Phone Subscriber Number Group Number Insured Name Patient Relationship to Insured Coverage Start Date Coverage End Date [facility] [address] [place] [address] [id number] Fredy Devlin - patient is the [id number] 2023Medicaid CFC [facility] [address] [place], [place] [id number], BrookeSelf - patient is the [id number] 2022
--- OUTSIDE RECORDS SUMMARY | 2025-05-08 15:18 | XMS_ITS | Clinical Summary ---
Author Organization [employer] Address [id number] [address] [place] [address] Care Team Providers Care Tab Card Press Operator Name Role Phone Edgardo Painting MD Primary Care Provider [phone] Allergies Active AllergyReactionsCriticalityNoted DateCommentsCiprofloxacinHivesLow 07/10/2018 Medications MedicationSigDispense QuantityRefillsLast FilledStart DateEnd DateStatus multivitamin capsule Indications:vitamin deficiency preventionTake 1 capsule by mouth in the morning. Indications: treatment to prevent vitamin deficiency.Active desvenlafaxine (PRISTIQ) 100 mg 24 hr tablet Take 1 tablet (100 mg total) by mouth in the morning.Active armodafiniL (NUVIGIL) 250 mg tablet Take 1 tablet (250 mg total) by mouth in the morning.Active SUNOSI 75 mg tablet Take 1 tablet by mouth in the morning. 1 TABLET IN THE MORNING ORALLY ONCE A DAY.5Active levothyroxine (SYNTHROID, LEVOTHROID) 150 MCG tablet Indications:Acquired hypothyroidismTake 1 tablet (150 mcg total) by mouth in the morning. 30 tablet 5Active Active Problems ProblemNoted DateDiagnosed DateAcquired cmouilrugxvyds56/14/2025 Assessment & Plan (12/31/2024 2:09 PM EDT): Landy Devlin is a 29 y.o. female with longstanding history of primary hypothyroidism. Blood work from the past 2 years have shown over replacement so we will discontinue liothyronine and patient was advised to skip levothyroxine on Sundays. Also advised to take any calcium iron or multivitamin at least 4 hours apart from her thyroid pill. We will obtain thyroid function studies in 6 weeks and prior to her next appointment to further adjust the dose if needed and patient will be notified about the results. Next follow-up will be in 3 months Ossicular chain wmqdzedcwm35/13/2021Hearing loss of left ear04/17/2020 Perforation of left tympanic gmrnqolz37/08/2020Hypothyroidism affecting in first uzxqgsrlf19/24/2019Obesity affecting in first tciglllgc73/24/2019 Encounters DateTypeDepartmentCare BohmDcwvbarzwdk05/15/2025 11:15 AM EDTOffice Visit [facility] A Department of [facility] [address] [address] [place] [phone] Roxana Castro APRN-BUY BOAT OPERATOR Acquired hypothyroidism (Primary Dx)04/02/2025Results Follow-Up [facility], A Department of [facility] [address] [facility] [address] [place] [address] Jass Ceron MD Thyroid profile includes TSH FT41Travelfrom Last 3 Months Family History Medical HistoryRelationNameCommentsDrug abuseBrotherNo Known ProblemsFather HyperlipidemiaMaternal GrandfatherHypertensionMaternal GrandfatherAnesthesia problemsMaternal Grandmotherifficulty waking upCoronary artery diseaseMaternal GrandmotherDiabetesMaternal GrandmotherHyperlipidemiaMaternal GrandmotherThyroid diseaseMaternal GrandmotherAsthmaMotherBreast cancerMotherNo Known Problems Paternal GrandfatherDiabetesPaternal GrandmotherThyroid diseasePaternal GrandmotherNo Known ProblemsSisterBleeding DisorderNeg HxClotting disorderNeg Hx Colon cancerNeg HxHearing lossNeg HxOvarian cancerNeg HxStrokeNeg HxRelationName StatusCommentsBrotherDeceasedFatherAliveMaternal GrandfatherAliveMaternal GrandmotherAliveMotherAlivePaternal GrandfatherAlivePaternal GrandmotherAlive SisterAlive Social History Tobacco UseTypesPacks/DayYears UsedDateSmoking Tobacco: NeverSmokeless Tobacco: NeverAlcohol UseStandard Drinks/WeekCommentsYes0 (1 standard drink = 0.6 oz pure alcohol)rarelyAUDIT-CAnswerDate RecordedQ1: How often do you have a drink containing alcohol?Never03/25/2020Average Number of DrinksNot on file03/25/2020 Frequency of Binge DrinkingNot on file03/25/2020PHQ-2AnswerDate RecordedTotal Yywbi13407/29/2019ChildcareAnswerDate DpuwzeyjBlgfdmlqhOfnimli03/13/2019Employment AnswerDate OjhiatxwSlivigsgkeSmjfyku60/13/2019Hunger ScreeningAnswerDate RecordedWithin the past 12 months we worried whether our food would run out before we got money to buy more.Never True04/03/2025Within the past 12 months the food we bought just didn't last and we didn't have money to get more.Never True04/03/2025Purpose - LifeAnswerDate RecordedPurpose and direction in life Aswxhoj35/13/2021CommentsNoSex and Gender InformationValueDate Recorded Sex Assigned at BirthNot on fileLegal EygUvgvca82/03/2019 1:49 PM ESTGender IdentityNot on fileSexual OrientationNot on file Last Filed Vital Signs Vital SignReadingTime TakenCommentsBlood Vgiantlk425/7804/03/2025 10:52 AM EDT Jilne488604/03/2025 10:52 AM UAGGkbhezkdmwi12.5 ??C (97.7 ??F)03/11/2021 9:59 AM EDTRespiratory Zhxe219811/25/2020 10:41 AM EDTOxygen Rtmjqssfmo36%11/25/2020 10:41 AM EDTInhaled Oxygen Concentration--Xqxaly41.3 kg (163 lb 11.2 oz)04/03/2025 10:52 AM CCFFacvme566.6 cm (5' 4.02 )04/03/2025 10:52 AM EDTBody Mass Index28.08 04/03/2025 10:52 AM EDT Plan of Treatment DateTypeDepartmentCare Team (Latest Contact Info)Bywprdciunb31/06/2026 11:45 AM EDTOffice Visit [facility], A Department of [facility] [address] [place] [address] Jass Ceron MD [address] [place] [address] Health MaintenanceDue DateLast DoneCommentsDepression Rsdzhcqtt11/13/2005Adult BMI Follow Up Plan2011DTaP,Tdap and Td Vaccines (1 - Tdap)2012Pap Smear2014COVID-19 Vaccine (2024- season)/07/2020, 07/29/2020Influenza Djkqgei71/01/2021, 04/18/2019, 04/01/2017, Additional history existsAdult BMI Odjsyezxm67Tobacco Fellhqnmj52 Medical Devices Not on file Procedures Procedure NamePriorityDate/TimeAssociated DiagnosisCommentsTHYROID PROFILE INCLUDES TSH JT9Aonesdp25/13/2025 12:30 PM EDT Acquired hypothyroidism from Last 3 Months Results * (ABNORMAL) Thyroid profile includes TSH FT4 (04/01/2025 12:30 PM EDT)Component ValueRef RangeTest MethodAnalysis TimePerformed AtPathologist SignatureFREE T4 1.380.61 - 1.60 ng/dL04/01/2025 6:53 PM [facility] TSH0.02(L)0.49 - 4.67 uIU/mL04/01/2025 6:53 PM [facility]ORATORYSpecimen (Source)Anatomical Location / LateralityCollection Method / VolumeCollection TimeReceived TimeBloodVenous blood / UnknownVenipuncture / Cafmsyx1404/01/2025 12:30 PM EDT1 12:30 PM EDT Narrative Authorizing ProviderResult TypeResult StatusGuillezach Silva MDLAB BLOOD ORDERABLESFinal ResultPerforming OrganizationAddressCity/State/ZIP Code Phone Number [facility] [address] [place] [address], [place] [phone] from Last 3 Months Insurance Care Teams Team MemberRelationshipSpecialtyStart DateEnd Date Edgardo Painting MD PCP - GeneralFamily Dqdxbrhw07/6/20
--- OUTSIDE RECORDS SUMMARY | 2025-05-08 15:18 | XMS_ITS | Clinical Summary ---
Author Organization [facility] Address [address] [place] [address] Care Team Providers Care Marine Biologist Name Role Phone Edgardo Painting MD Primary Care Provider [phone] Aracely Sanchez DO Unavailable [phone] Serenity Rodriguez HIGH HEEL BUILDER Unavailable [phone] Allergies Active AllergyReactionsCriticalityNoted DateCommentsCiprofloxacinHivesLow 07/10/2018 Medications MedicationSigDispense QuantityRefillsLast FilledStart DateEnd DateStatus desvenlafaxine (Pristiq) 50 MG 24 hr tablet Take 50 mg by mouth Daily08/26/2023ctive Multiple Vitamin (multivitamin) capsule Take 1 capsule by mouth in the morning.Active levothyroxine (Synthroid, Levoxyl) 200 MCG tablet Take 200 mcg by mouth in the morning. Take on an empty stomach..08/29/2023ctive FeroSul 325 (65 Fe) MG tablet Take 1 tablet by mouth in the morning and 1 tablet before bedtime.12/17/2023 Active Sunosi 150 MG tablet Take 150 mg by mouth DailyActive Levonorgestrel (Mirena, 52 MG,) 20 MCG/DAY intrauterine device 52 mg by Intrauterine route if needed (every 5 years)Active levothyroxine (Synthroid, Levoxyl) 25 MCG tablet Take by mouth.05/08/2025Discontinued fluconazole (Diflucan) 150 MG tablet Indications:Acute tonsillitis, unspecified etiologyFor s/s of yeast infection 1 tablet Discontinued armodafinil (Nuvigil) 250 MG tablet Indications:HypersomniaTake 1 tablet (250 mg) by mouth Daily 30 tablet 5107/08/2024Discontinued Active Problems ProblemNoted DateDiagnosed DateOssicular chain nahfqciygx95/13/2021Hearing loss of left ear04/17/2020Perforation of left tympanic ssgrplif23/08/2020 Hypothyroidism affecting in first leokgfesm37/24/2019Obesity affecting in first trimester ([facility])07/13/2018 Encounters DateTypeDepartmentCare PjqbUwruqgrogon23/19/2025 11:00 AM ESTProcedure Visit [facility] [address] [place] [address] [place] [address] Deja Walsh PA Well woman exam with routine gynecological examfrom Last 3 Months Family History Medical HistoryRelationNameCommentsNo Known ProblemsDaughterNo Known Problems FatherBreast cancerMotherNo Known ProblemsSisterRelationNameStatusComments DaughterAliveFatherAliveMotherAliveSisterAlive Social History Tobacco UseTypesPacks/DayYears UsedDateSmoking Tobacco: NeverSmokeless Tobacco: Never Tobacco Cessation:Counseling Given: Not Answered Alcohol UseStandard Drinks/WeekCommentsNot Currently0 (1 standard drink = 0.6 oz pure alcohol)CommentsNoSex and Gender InformationValueDate RecordedSex Assigned at BirthNot on fileLegal OpcAbdbdp40/15/2023 8:08 PM EDTGender Identity Not on fileSexual OrientationNot on file Last Filed Vital Signs Vital SignReadingTime TakenCommentsBlood Dbzumxgc654/80107/08/2024 10:59 AM EST Eprxn080109/19/2024 4:09 PM SUOJazqnuowplw53.4 ??C (97.6 ??F)07/04/2024 12:14 PM ESTRespiratory Rate--Oxygen Ejsuuyqxcz48%07/04/2024 12:14 PM ESTInhaled Oxygen Concentration--Jggjne85.1 kg (163 lb 6.4 oz)05/08/2025 10:59 AM CAYWzxesw596.6 cm (5' 4 )09/19/2024 4:09 PM EDTBody Mass Index28.0504/07/2024 4:09 PM EDT Plan of Treatment Not on file Insurance Care Teams Team MemberRelationshipSpecialtyStart Date Edgardo Painting MD [address] [place] [address] PCP - GeneralFamily Medicine11/17/22 Aracely Sanchez DO [address] [place], [place] [id number] Referring PhysicianNeurology09/19/24 Serenity Rodriguez NP Nurse PractitionerNeurology09/19/24
--- OUTSIDE RECORDS SUMMARY | 2025-05-08 15:18 | XMS_ITS | CCD ---
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 mmol/LNormal0.5-1.9Memorial HospitalComment on above:Lactic Acid reference range has been updated to 0.5 1.9 mmol/L and the critical range of 2.0 or greater.Result Comment: Lactic Acid reference range has been updated to 0.5 ? 1.9 mmol/L and the critical range of 2.0 or greater. PERFORMED BY: [place] [address] PATHOLOGIST ENVIRONMENTAL PROGRAMS SPECIALIST CARLINE GARCIA M.D.Performed By: #### CUBLD, BMP, LACTIC, CBC #### [facility] [address] [place] [address] USALeukocytes [#/volume] corrected for nucleated erythrocytes in Blood by Automated counOrdered By: Keshia Pza on 37-77-3209BQA corrected for nucl RBC Auto (Bld) [#/Vol]7.4 10*3/uL3.8-11.6FOhioHealth O'Bleness HospitalLeukocytes [#/volume] in Blood by Automated countOrdered By: Keshia Paz on 72-84-7793NVC (Bld) [#/Vol]7.4 10*3/uLNormal3.8-11.6FOhioHealth O'Bleness HospitalComment on above:Performed By: #### CUBLD, BMP, LACTIC, CBC #### [place] [id number] USALymphocytes [#/volume] in Blood by Automated countOrdered By: Keshia Paz on 23-24-7314Vmslspqlkok (Bld) [#/Vol]1.5 10*3/uLNormal 1.00-4.8Memorial HospitalComment on above:Performed By: #### CUBLD, BMP, LACTIC, CBC #### [facility] [address] [place], [place] [id number] USALymphocytes/100 leukocytes in Blood by Automated count Ordered By: Keshia Paz on 57-04-0434Gxetbtdnbks/100 WBC (Bld)20.5 %Normal. Memorial HospitalComment on above:Performed By: #### CUBLD, BMP, LACTIC, CBC #### [facility] [address] [Entitic mass] by Automated countOrdered By: Keshia Paz on 74-07-7192LIE (RBC) [Entitic mass]30.8 pvOqfuqf46.7-34.3FOhioHealth O'Bleness HospitalComment on above:Performed By: #### CUBLD, BMP, LACTIC, CBC #### [facility] [address] Auto (RBC) [Mass/Vol]Ordered By: Keshia Paz on 39-71-6574FMSH (RBC) [Mass/Vol]33.7 g/dL32.0-35.0[facility] HospitalV [Entitic volume] by Automated countOrdered By: Keshia Paz on 63-22-9985LYB (RBC) [Entitic vol]91.3 aHFhepak89-453BgjoktbofMemorial HospitalComment on above:Performed By: #### CUBLD, BMP, LACTIC, CBC #### [facility] [address] [place] [address] USAMonocyte distribution width [Entitic volume] in Blood by AutomatedOrdered By: Keshia Paz on 86-87-9672Vnfsglgi distribution width Auto (Bld) [Entitic vol]17.35 %0.00-20.00[facility] Monocytes [#/volume] in Blood by Automated countOrdered By: Keshia Paz on 22-75-7988Iyowhrswp (Bld) [#/Vol]1.1 10*3/uLHigh0.0-0.8Memorial HospitalComment on above:Performed By: #### CUBLD, BMP, LACTIC, CBC #### [facility] [address] [id number] USAMonocytes/100 leukocytes in Blood by Automated count Ordered By: Keshia Paz on 17-76-7875Ylatzoljj/100 WBC (Bld)14.9 %Normal. Memorial HospitalComment on above:Performed By: #### CUBLD, BMP, LACTIC, CBC #### [facility] [address] [place], [place] [address] USANeutrophils [#/volume] in Blood by Automated countOrdered By: Keshia Paz on 03-57-4125Dzdvmnineee (Bld) [#/Vol]4.6 10*3/uLNormal 1.8-7.7FOhioHealth O'Bleness HospitalComment on above:Performed By: #### CUBLD, BMP, LACTIC, CBC #### [place] [address] USANeutrophils/100 leukocytes in Blood by Automated count Ordered By: Keshia Paz on 73-84-1284Hksbfkzofvb/100 WBC (Bld)62.0 %Normal. Memorial HospitalComment on above:Performed By: #### CUBLD, BMP, LACTIC, CBC #### [place] [address] USANo Panel InformationOrdered By: Keshia Paz on 76-89-5991Ziyrnkfp Creatinine Clearance (Dlbw543.28Memorial HospitalNucleated erythrocytes [Presence] in Blood by Automated countOrdered By: Keshia Paz on 76-02-0337Lqsrgpmtu RBC Auto Ql (Bld)0.1 /100{WBC}0-0.5 Memorial HospitalPartial Thromboplastin Timeon 61-67-6733eHLR Coag (Bld) [Time]31.8 oMmovcj90.1-36.5The [facility] - Hoke Physician GroupComment on above:Result Comment: A hematocrit value greater than 55% may lead to inaccurate results in coagulation testing. Patients having hematocrit values >55% require a special collection tube for coagulation studies. Please contact the laboratory at [phone] for redraw instructions. PERFORMED BY: [place] [address] PATHOLOGIST ENVIRONMENTAL PROGRAMS SPECIALIST CARLINE GARCIA M.D.Performed By: #### PTT, PT #### [place] [address] USAPlatelet mean volume [Entitic volume] in Blood by Automated countOrdered By: Keshia Paz on 34-08-3952Amxslqpl mean volume (Bld) [Entitic vol]8.6 fLNormal6.3-10.7FOhioHealth O'Bleness HospitalComment on above:Performed By: #### CUBLD, BMP, LACTIC, CBC #### [facility] [address] [place] [address] USAPlatelets [#/volume] in Blood by Automated countOrdered By: Keshia Paz on 41-91-6319Gzdnnpxqu (Bld) [#/Vol]301 10*3/wTGawhwv637-659 Memorial HospitalComment on above:Performed By: #### CUBLD, BMP, LACTIC, CBC #### [facility] [address] [place] [address] USAPotassium [Moles/volume] in Serum or PlasmaOrdered By: Keshia Paz on 11-51-6496Bxqbjgkvk [Moles/Vol]4.3 mmol/LNormal3.5-5.1 Memorial HospitalComment on above:Performed By: #### CUBLD, BMP, LACTIC, CBC #### [facility] [address] [place] [address] USAProthrombin time (PT)Ordered By: Keshia Paz on 99-80-7038BB Coag (PPP) [Time]10.8 sNormal9.0-12.9Memorial HospitalComment on above:A hematocrit value greater than 55% may lead to inaccurate results in coagulation testing. Patientshaving hematocrit values >55% require a special collection tube for coagulation studies. Please contact the laboratory at [phone] for redraw instructions.Result Comment: A hematocrit value greater than 55% may lead to inaccurate results in coagulation testing. Patients having hematocrit values >55% require a special collection tube for coagulation studies. Please contact the laboratory at [phone] for redraw instructions.Performed By: #### PTT, PT #### [facility] [address] [place] [address] USASerum or plasma anion gap determinationOrdered By: Keshia Paz on 47-77-5390Qifbp gap [Moles/Vol]11.5 mmol/LNormal6.0-15.0 Memorial HospitalComment on above:Performed By: #### CUBLD, BMP, LACTIC, CBC #### [facility] [address] [place] [address] USASodium [Moles/volume] in Serum or PlasmaOrdered By: Keshia Paz on 63-16-5471Qseksm [Moles/Vol]137 mmol/FMleehm202-646XqxevaorkMemorial HospitalComment on above:Performed By: #### CUBLD, BMP, LACTIC, CBC #### [facility] [address] [place] [address] USAUrea nitrogen [Mass/volume] in Serum or PlasmaOrdered By: Keshia Paz on 39-03-7376Ruoc nitrogen [Mass/Vol]9 mg/dLNormal7-25Memorial HospitalComment on above:Performed By: #### CUBLD, BMP, LACTIC, CBC #### [facility] [address] [place] [address] USAaPTT in Platelet poor plasma by Coagulation assayOrdered By: Keshia Paz on 90-75-6544bJNH Coag (PPP) [Time]31.8 s25.1-36.5FOhioHealth O'Bleness HospitalComment on above:A hematocrit value greater than 55% may lead to inaccurate results in coagulation testing. Patientshaving hematocrit values >55% require a special collection tube for coagulation studies. Please c ontact the laboratory at [phone] for redraw instructions.THYROID PROFILE INCLUDES TSH FT4on 44-43-1207Ljnz T4 [Mass/Vol]1.38 ng/dLNormal0.61-1.60 [facility] Medical CenterComment on above:Performed By: #### THYR #### [facility] [address] [place] [address] VIRTSH0.02 uIU/mLLow0.49-4.67ProOhio Valley Hospitalca Sharp Chula Vista Medical CenterComment on above:Performed By: #### THYR #### [facility] ([facility]) 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 Pt is asking for doc to review and get an appt Allergies As of Date: 03/19/2025 (Not on File) Date Reviewed: Never Reviewed Reason for Visit: Imaging Review/Appt [Other] Problem List As Of Date: 03/19/2025 (None) Encounter Status:Closed by SOHEILA DUQUE on 03/22/25[facility] HospitalCNPNon [id number] (ORAVON) FRANCISCO BEYElda Starr ([id number]) 1995 F Date Time Provider Department 02/26/25 ISIDORO MIR During your visit today, we recorded the following information about you: Padmini Gonzalez 02/26/2025 11:41 AM Signed Patient returned Lwoell Kleberrangel's call from 01/30/2025. 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 She had an MRI of her hip at [facility]. She will be sending the imaging disk and the radiology report to Isidoro Mir in [place]. She understands that Dr. Mir needs to review prior to scheduling her a consult with him. I told her if she doesn't hear from anyone after about 2 weeks, to call us back so we can see if it was rec'd and reviewed. Chelsea Pollack 02/26/2025 1:48 PM Signed Mary from Dr. Kayode Billy's () office called to request a call back from Dr. Mir's team to discuss patient's results and get patient scheduled. Please call Mary at [phone]. Padmini Gonzalez 02/27/2025 1:23 PM Signed Patient called and left a message stating Dr. Billy told her that her images should be available now in her chart. I messaged our imaging library to check to see if there was anything waiting to be uploaded for her. I was advised that nothing was received. I called the patient back and let her a VM letting her know and told her to go ahead and proceed with mailing the CD as notified previously. Padmini Colón Allergies As of Date: 02/26/2025 (Not on File) Date Reviewed: Never Reviewed Problem List As Of Date: 02/26/2025 (None) Encounter Status:Closed by PADMINI GONZALEZ on 02/27/25[facility] HospitalCNPNon [id number] (SPHTB) FARHAD BEY ([id number]) 1995 F Date Time Provider Department 01/30/25 SOHEILA DUQUE [facility] During your visit today, we recorded the following information about you: Allergies As of Date: 01/30/2025 (Not on File) Date Reviewed: Never Reviewed Reason for Visit: Appointment [186] Problem List As Of Date: 01/30/2025 (None) Encounter Status:Closed by SOHEILA DUQUE on 01/30/25[facility] HospitalFL GUIDED CONTRAST INJECTION HIP LEFTon 19-92-8881NC GUIDED CONTRAST INJECTION HIP LEFTInterpreted By: Nikita Abebe, STUDY: FL GUIDED CONTRAST INJECTION HIP LEFT Fluoroscopy guided injection of the left hip joint with dilute gadolinium contrast. INDICATION: Signs/Symptoms:pain. COMPARISON: None ACCESSION NUMBER(S): [id number] ORDERING CLINICIAN: KAYODE BILLY FINDINGS: Informed verbal/written consent was obtained prior to the procedure. The risks, benefits, and alternatives were discussed. The patient was placed in the supine position on the fluoroscopic table and was prepped and draped in the usual sterile fashion. A 22 gauge needle was advanced into the left hip joint utilizing local anesthesia, sterile technique, and fluoroscopy guidance. Following this, a small amount of iodinated contrast was utilized to confirm the needle positioning. Subsequently, 10 ml of 1 in 200 diluted gadolinium contrast was injected into the joint. There were no immediate complications. Fluoroscopy time was 6 seconds. The patient tolerated the procedure well and no immediate complication was noted. Procedure was performed by Nikita Abebe MD IMPRESSION: Fluoroscopy guided intra-articular injection of contrast in the left hip joint without immediate complication. MACRO: None Signed by: Nikita Abebe 01/04/2025 1:46 PM Dictation workstation: [id number] Health Clermont HospitalMR HIP LEFT WO IV CONTRASTon 83-21-5618GA HIP LEFT WO IV CONTRAST Interpreted By: Nikita Abebe, STUDY: MR arthrogram of the left hip; 01/04/2025 2:34 pm INDICATION: Signs/Symptoms:pain. ,S73.192A Other sprain of left hip, initial encounter COMPARISON: Left hip radiograph 12/14/2024 ACCESSION NUMBER(S): [id number] ORDERING CLINICIAN: KAYODE BILLY TECHNIQUE: An MRI of the left hip following intra-articular administration of diluted gadolinium contrast was attempted; however, upon imaging review, only a small amount of contrast remained within the femoroacetabular joint. Therefore, the examination was converted to a hip MRI CRAIG protocol. FINDINGS: TENDONS: The insertions of the gluteus medius and gluteus minimus tendons are intact. The insertion of the iliopsoas tendon is intact. The visualized hamstring tendon origin is intact. JOINTS: A small amount of contrast material is identified within the hip joint. The hip joint articular cartilage is normal without focal defect. There is no evidence of significant arthrosis. The acetabular labrum is intact. There is no evidence of avascular necrosis. There is cam femoral morphology of the left femoral head with bony protuberance along the anterior margin of the femoral head/neck junction. The alpha angle is elevated measuring approximately 60 degrees OSSEOUS STRUCTURES: No focal marrow replacing lesions are identified. There is no fracture. SOFT TISSUES: A small amount of iatrogenic contrast material is identified within the anterior soft tissues related to arthrographic approach. No muscle atrophy or tear is seen. INTERNAL ORGANS: Evaluation of the internal organs of the pelvis is limited on this small field of view study tailored for evaluation of the musculoskeletal system. No gross abnormality is seen in the pelvic organs. 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 No acetabular labral tear is evident. I personally reviewed the images/study and I agree with the findings as stated. This study was interpreted at [place], [place]. MACRO: None Signed by: Nikita Abebe 01/04/2025 3:11 PM Dictation workstation: [id number] [place] Medical CenterMR Hip - left WO contraston 51-05-9963Ubv femoral morphology of the left femoral head with elevated alpha angle suggestive of femoroacetabular impingement. No acetabular labral tear is evident. I personally reviewed the images/study and I agree with the findings as stated. This study was interpreted at [place], [place]. MACRO: None Signed by: Nikita Abebe 01/04/2025 3:11 PM Dictation workstation: [id number] MMODALInterpreted By: Nikita Abebe, STUDY: MR arthrogram of the left hip; 01/04/2025 2:34 pm INDICATION: Signs/Symptoms:pain. ,S73.192A Other sprain of left hip, initial encounter COMPARISON: Left hip radiograph 12/14/2024 ACCESSION NUMBER(S): [id number] ORDERING CLINICIAN: KAYODE BILLY TECHNIQUE: An MRI of the left hip following intra-articular administration of diluted gadolinium contrast was attempted; however, upon imaging review, only a small amount of contrast remained within the femoroacetabular joint. Therefore, the examination was converted to a hip MRI CRAIG protocol. FINDINGS: TENDONS: The insertions of the gluteus medius and gluteus minimus tendons are intact. The insertion of the iliopsoas tendon is intact. The visualized hamstring tendon origin is intact. JOINTS: A small amount of contrast material is identified within the hip joint. The hip joint articular cartilage is normal without focal defect. There is no evidence of significant arthrosis. The acetabular labrum is intact. There is no evidence of avascular necrosis. There is cam femoral morphology of the left femoral head with bony protuberance along the anterior margin of the femoral head/neck junction. The alpha angle is elevated measuring approximately 60 degrees OSSEOUS STRUCTURES: No focal marrow replacing lesions are identified. There is no fracture. SOFT TISSUES: A small amount of iatrogenic contrast material is identified within the anterior soft tissues related to arthrographic approach. No muscle atrophy or tear is seen. INTERNAL ORGANS: Evaluation of the internal organs of the pelvis is limited on this small field of view study tailored for evaluation of the musculoskeletal system. No gross abnormality is seen in the pelvic organs. MMODALNikita Abebe MD - 01/04/2025 Interpreted By: Nikita Abebe, STUDY: MR arthrogram of the left hip; 01/04/2025 2:34 pm INDICATION: Signs/Symptoms:pain. ,S73.192A Other sprain of left hip, initial encounter COMPARISON: Left hip radiograph 12/14/2024 ACCESSION NUMBER(S): [id number] ORDERING CLINICIAN: KAYODE BILLY TECHNIQUE: An MRI of the left hip following intra-articular administration of diluted gadolinium contrast was attempted; however, upon imaging review, only a small amount of contrast remained within the femoroacetabular joint. Therefore, the examination was converted to a hip MRI CRAIG protocol. FINDINGS: TENDONS: The insertions of the gluteus medius and gluteus minimus tendons are intact. The insertion of the iliopsoas tendon is intact. The visualized hamstring tendon origin is intact. JOINTS: A small amount of contrast material is identified within the hip joint. The hip joint articular cartilage is normal without focal defect. There is no evidence of significant arthrosis. The acetabular labrum is intact. There is no evidence of avascular necrosis. There is cam femoral morphology of the left femoral head with bony protuberance along the anterior margin of the femoral head/neck junction. The alpha angle is elevated measuring approximately 60 degrees OSSEOUS STRUCTURES: No focal marrow replacing lesions are identified. There is no fracture. SOFT TISSUES: A small amount of iatrogenic contrast material is identified within the anterior soft tissues related to arthrographic approach. No muscle atrophy or tear is seen. INTERNAL ORGANS: Evaluation of the internal organs of the pelvis is limited on this small field of view study tailored for evaluation of the musculoskeletal system. No gross abnormality is seen in the pelvic organs. 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 No acetabular labral tear is evident. I personally reviewed the images/study and I agree with the findings as stated. This study was interpreted at [place], [place]. MACRO: None Signed by: Nikita Abebe 01/04/2025 3:11 PM Dictation workstation: [id number] [facility] Work Phone: Radiology Study observation (narrative)[facility] Work Phone: mr Hip - left WO contrastOrdered By: Nikita Abebe on 02-44-8878NnshuegoyrMetroHealth Parma Medical Center Work Phone: rf Guidance for injection of Jointon 01-04-2025 Fluoroscopy guided intra-articular injection of contrast in the left hip joint without immediate complication. MACRO: None Signed by: Nikita Abebe 01/04/2025 1:46 PM Dictation workstation: [id number] MMODALInterpreted By: Nikita Abebe, STUDY: FL GUIDED CONTRAST INJECTION HIP LEFT Fluoroscopy guided injection of the left hip joint with dilute gadolinium contrast. INDICATION: Signs/Symptoms:pain. COMPARISON: None ACCESSION NUMBER(S): [id number] ORDERING CLINICIAN: KAYODE BILLY FINDINGS: Informed verbal/written consent was obtained prior to the procedure. The risks, benefits, and alternatives were discussed. The patient was placed in the supine position on the fluoroscopic table and was prepped and draped in the usual sterile fashion. A 22 gauge needle was advanced into the left hip joint utilizing local anesthesia, sterile technique, and fluoroscopy guidance. Following this, a small amount of iodinated contrast was utilized to confirm the needle positioning. Subsequently, 10 ml of 1 in 200 diluted gadolinium contrast was injected into the joint. There were no immediate complications. Fluoroscopy time was 6 seconds. The patient tolerated the procedure well and no immediate complication was noted. Procedure was performed by Nikita Abebe MD MMODALAbuhNikita brooks MD - 01/04/2025 Interpreted By: Nikita Abebe, STUDY: FL GUIDED CONTRAST INJECTION HIP LEFT Fluoroscopy guided injection of the left hip joint with dilute gadolinium contrast. INDICATION: Signs/Symptoms:pain. COMPARISON: None ACCESSION NUMBER(S): [id number] ORDERING CLINICIAN: KAYODE BILLY FINDINGS: Informed verbal/written consent was obtained prior to the procedure. The risks, benefits, and alternatives were discussed. The patient was placed in the supine position on the fluoroscopic table and was prepped and draped in the usual sterile fashion. A 22 gauge needle was advanced into the left hip joint utilizing local anesthesia, sterile technique, and fluoroscopy guidance. Following this, a small amount of iodinated contrast was utilized to confirm the needle positioning. Subsequently, 10 ml of 1 in 200 diluted gadolinium contrast was injected into the joint. There were no immediate complications. Fluoroscopy time was 6 seconds. The patient tolerated the procedure well and no immediate complication was noted. Procedure was performed by Nikita Abebe MD IMPRESSION: Fluoroscopy guided intra-articular injection of contrast in the left hip joint without immediate complication. MACRO: None Signed by: Nikita Abebe 01/04/2025 1:46 PM Dictation workstation: [id number] [facility] Work Phone: Radiology Study observation (narrative)[facility] Work Phone: Guidance for injection of JointOrdered By: Nikita Abebe on 74-53-2264ElougkrwkyMetroHealth Parma Medical Center Work Phone: XR HIP LEFT WITH PELVIS WHEN PERFORMED 2 OR 3 VIEWSon 57-41-4113BJ HIP LEFT WITH PELVIS WHEN PERFORMED 2 OR 3 VIEWSInterpreted By: Kayode Billy, ADDENDUM: On the frog-lateral there is a small raised area on the femoral neck consistent with a cam deformity. Signed by: Kayode Billy 12/14/2024 2:02 PM -------- ORIGINAL REPORT -------- Dictation workstation: [id number] Interpreted By: Kayode Billy, STUDY: XR HIP LEFT WITH PELVIS WHEN PERFORMED 2 OR 3 VIEWS; ; 12/14/2024 1:43 pm INDICATION: Signs/Symptoms:pain. ACCESSION NUMBER(S): [id number] ORDERING CLINICIAN: KAYODE BILLY FINDINGS: Left hip films are negative for fracture, dislocation or destructive lesion. The joint space is well-maintained. No soft tissue abnormality is identified. There are surgical clips seen in the lower abdomen and pelvis along with an intrauterine device. Signed by: Kayode Billy 12/14/2024 1:47 PM Dictation workstation: [id number] Health Clermont HospitalXR Hip Viewson [id number] by Kayode Billy MD on 12/14/2024 2:02 PM EDT Interpreted By: Kayode Billy, ADDENDUM: On the frog-lateral there is a small raised area on the femoral neck consistent with a cam deformity. Signed by: Kayode Billy 12/14/2024 2:02 PM -------- ORIGINAL REPORT -------- Dictation workstation: [id number] Hospitals Beach[facility] Work Phone: Interpreted By: Kayode Billy, STUDY: XR HIP LEFT WITH PELVIS WHEN PERFORMED 2 OR 3 VIEWS; ; 12/14/2024 1:43 pm INDICATION: Signs/Symptoms:pain. ACCESSION NUMBER(S): [id number] ORDERING CLINICIAN: KAYODE BILLY FINDINGS: Left hip films are negative for fracture, dislocation or destructive lesion. The joint space is well-maintained. No soft tissue abnormality is identified. There are surgical clips seen in the lower abdomen and pelvis along with an intrauterine device. Signed by: Kayode Billy 12/14/2024 1:47 PM Dictation workstation: [id number] Kayode Hawthorne MD - 12/14/2024 Interpreted By: Kayode Billy STUDY: XR HIP LEFT WITH PELVIS WHEN PERFORMED 2 OR 3 VIEWS; ; 12/14/2024 1:43 pm INDICATION: Signs/Symptoms:pain. ACCESSION NUMBER(S): [id number] ORDERING CLINICIAN: KAYODE BILLY FINDINGS: Left hip films are negative for fracture, dislocation or destructive lesion. The joint space is well-maintained. No soft tissue abnormality is identified. There are surgical clips seen in the lower abdomen and pelvis along with an intrauterine device. Signed by: Kayode iBlly 12/14/2024 1:47 PM Dictation workstation: [id number] [facility] Work Phone: [facility] Work Phone: Radiology Study observation (narrative)[facility] Work Phone: Telephone Encounteron [id number] Authentication Interface Message TextSituation: Reschedule Background: Pt calling in and asking to have surgery apt rescheduled, please reach out to pt to assist. Assessment: Recommendation: Pt can be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 not differentiate between previous resolved infection and active infection. The CDC and current clinical guidelines recommend that a positive HCV antibody result be followed up with an HCV RNA test to support the diagnosis of acute HCV infection. [facility] offers Hepatitis C Virus (HCV) RNA, Diagnosis, WALLY (401854) and Hepatitis C Virus (HCV) Antibody with reflex to Quantitative Real-time PCR (314937).Performed By: #### FERR, IRON, B12FOL, VITAD #### [facility] [address] [place] [address] Dr. Mishel Fish PROFILEon [id number] [Mass/Vol]3.7 g/dLNormal3.4-5.0 The [facility] on above:Performed By: #### FERR, IRON, B12FOL, VITAD #### [facility] [address] [place] [address] Dr. Mishel ShineAlbumin/Globulin [Mass ratio]1.0 {ratio}NormalThe [facility] on above:Performed By: #### FERR, IRON, B12FOL, VITAD #### [facility] [address] [place] [address] Dr. Mishel Barton [Catalytic activity/Vol]88 U/FIaigdy58-709Gbv [facility] HospitalComment on above:Performed By: #### FERR, IRON, B12FOL, VITAD #### [facility] [address] [place] [address] Dr. Mishel Garcias [Catalytic activity/Vol]36 U/IStijit72-13Mlc [facility] on above:Performed By: #### FERR, IRON, B12FOL, VITAD #### [facility] [address] [place] [address] Dr. Mishel Bower [Catalytic activity/Vol]30 U/AKzxvan30-25Bnm [facility] on above:Performed By: #### FERR, IRON, B12FOL, VITAD #### [facility] [address] [place] [address] Dr. Mishel Bella, CONJUGATED0.1 mg/dLNormal0.0-0.2[facility] Comment on above:Performed By: #### FERR, IRON, B12FOL, VITAD #### [facility] [address] [place] [address] Dr. Mishel Reyesirubin [Mass/Vol]0.6 mg/dLNormal0.2-1.0[facility] Comment on above:Performed By: #### FERR, IRON, B12FOL, VITAD #### [facility] [address] [place] [address] Dr. Mishel ShineGlobulin (S) [Mass/Vol]3.7 g/dLNormalThe [facility] HospitalComment on above:Performed By: #### FERR, IRON, B12FOL, VITAD #### [facility] [address] [place] [address] Dr. Mishel ShineProtein [Mass/Vol]7.4 g/dLNormal6.4-8.2The [facility] Comment on above:Performed By: #### FERR, IRON, B12FOL, VITAD #### [facility] [address] [place] [address] Dr. Mishel ShineINSULINon 85-52-5698Hyablkb5.2 uIU/mLNormal2.6-24.9The [facility] HospitalComment on above:Performed By: #### FERR, IRON, B12FOL, VITAD #### [facility] [address] [place] [address] Dr. Mishel Church AUTO DIFFon [id number] #0.0 103/ulNormal0.0-0.1The [facility] HospitalComment on above:Performed By: #### FERR, IRON, B12FOL, VITAD #### [facility] [address] [place] [address] Dr. Mishel ShineBasophils/100 WBC (Bld)0.3 %Normal0.2-2.0The [facility] Comment on above:Performed By: #### FERR, IRON, B12FOL, VITAD #### [facility] [address] [place] [address] Dr. Mishel Daniel #0.1 103/ulNormal0.0-0.7The [facility] HospitalComment on above: Performed By: #### FERR, IRON, B12FOL, VITAD #### [facility] [address] [place] [address] Dr. Mishel Andrewosinophils/100 WBC (Bld)1.1 %Normal0.9-7.0[facility] Comment on above:Performed By: #### FERR, IRON, B12FOL, VITAD #### [facility] [address] [place] [address] Dr. Mishel Andrewrythrocyte distribution width (RBC) [Ratio]13.2 %Zifpyz27.0-15.0 The [facility] HospitalComment on above:Performed By: #### FERR, IRON, B12FOL, VITAD #### [facility] [address] [place] [address] Dr. Mishel ShineHematocrit (Bld) [Volume fraction]34.7 %Critically low36.0-48.0 The [facility] HospitalComment on above:Performed By: #### FERR, IRON, B12FOL, VITAD #### [facility] [address] [place] [address] Dr. Mishel ShineHemoglobin (Bld) [Mass/Vol]12.0 g/fSJvjshp69.0-16.0The [facility] HospitalComment on above:Performed By: #### FERR, IRON, B12FOL, VITAD #### [facility] [address] [place] [address] Dr. Mishel Penaloza #0.04 10e3/ulCritically high0.00-0.03The [facility] Comment on above:Performed By: #### FERR, IRON, B12FOL, VITAD #### [facility] [address] [place] [address] Dr. Mishel Penaloza %0.4 %Normal0.0-0.5The [facility] HospitalComment on above: Performed By: #### FERR, IRON, B12FOL, VITAD #### [facility] [address] [place] [address] Dr. Mishel Dickey #2.4 103/ulNormal1.2-3.8The [facility] HospitalComment on above:Performed By: #### FERR, IRON, B12FOL, VITAD #### [facility] [address] [place] [address] Dr. Yilan ChangLymphocytes/100 WBC (Bld)26.3 %Dlpnxn34.5-60.0The [facility] HospitalComment on above:Performed By: #### FERR, IRON, B12FOL, VITAD #### [facility] [address] [place] [address] Dr. Mishel Cabrera DIFF REQNONormalThe [facility] HospitalComment on above: Performed By: #### FERR, IRON, B12FOL, VITAD #### [facility] [address] [place] [address] Dr. Mishel Watts (RBC) [Entitic mass]29.9 ygEqhvmf43.7-34.0The [facility] HospitalComment on above:Performed By: #### FERR, IRON, B12FOL, VITAD #### [facility] [address] [place] [address] Dr. Mishel Watts (RBC) [Mass/Vol]34.6 g/qYEwlujz83.9-35.2The [facility] HospitalComment on above:Performed By: #### FERR, IRON, B12FOL, VITAD #### [facility] [address] [place] [address] Dr. Mishel Watts (RBC) [Entitic vol]86.5 cRGyfbvh51.0-99.0The [facility]ment on above:Performed By: #### FERR, IRON, B12FOL, VITAD #### [facility] [address] [place] [address] Dr. Mishel Peter #0.7 103/ulNormal0.3-0.8The [facility] on above:Performed By: #### FERR, IRON, B12FOL, VITAD #### [facility] [address] [place] [address] Dr. Mishel Steeleocytes/100 WBC (Bld)7.9 %Normal1.7-12.0The [facility] Comment on above:Performed By: #### FERR, IRON, B12FOL, VITAD #### [facility] [address] [place] [address] Dr. Mishel Vazquez #5.9 103/ulNormal1.4-6.5The [facility] on above:Performed By: #### FERR, IRON, B12FOL, VITAD #### [facility] [address] [place] [address] Dr. Mishel Graceutrophils/100 WBC (Bld)64.0 %Xjlols75.0-75.0The [facility] on above:Performed By: #### FERR, IRON, B12FOL, VITAD #### [facility] [address] [place] [address] Dr. Mishel ShinePlatelet mean volume (Bld) [Entitic vol]10.2 fLNormal9.5-13.5The [facility] on above:Performed By: #### FERR, IRON, B12FOL, VITAD #### [facility] [address] [place] [address] Dr. Mishel ShinePLT280 103/ynMqpjex795-582Nxm [facility] on above: Performed By: #### FERR, IRON, B12FOL, VITAD #### [facility] [address] [place] [address] Dr. Mishel ShineRBC4.01 106/ulCritically low4.20-5.40The [facility] on above:Performed By: #### FERR, IRON, B12FOL, VITAD #### [facility] [address] [place] [address] Dr. Mishel ShineWBC9.3 103/ulNormal4.0-11.0The [facility] on above: Performed By: #### FERR, IRON, B12FOL, VITAD #### [facility] [address] [place] [address] Dr. Mishel PrajapatiRICarlos Eduardo [id number] [Mass/Vol]51.0 ng/mLNormal6.2-137.0 The [facility]ment on above:Performed By: #### FERR, IRON, B12FOL, VITAD #### [facility] [address] [address] [address] Mishel Wisdom THYROXINE INDEX T7on [id number]0-4.50The [facility] on above:Performed By: #### TSH, CMP, T7, LIPID #### [facility] [address] [place] [address] Dr. Mishel ShineT3U37.0 %Pqrasc16.0-39.0The [facility] HospitalComment on above: Performed By: #### TSH, CMP, T7, LIPID #### [facility] [address] [place] [address] Dr. Mishel ShineT4 [Mass/Vol]7.90 ug/dLNormal4.80-13.90The [facility] Comment on above:Performed By: #### TSH, CMP, T7, LIPID #### [facility] [address] [place] [address] Dr. Mishel ShineGLYCOHEMOGLOBIN A1Con 22-91-2351HNU RECOMMENDATIONSEE BELOWNormal The [facility] HospitalComment on above:Result Comment: ADA RECOMMENDED LIMIT 4.0 - 6.0 ADA THERAPEUTIC TARGET < 7.0 ACTION SUGGESTED > 7.0Performed By: #### FERR, IRON, B12FOL, VITAD #### [facility] [address] [place] [address] Dr. Mishel ShineGlucose [Mass/Vol]108 mg/dLNormalThe [facility] on above:Performed By: #### FERR, IRON, B12FOL, VITAD #### [facility] [address] [place] [address] Dr. Mishel ShineHbA1c (Bld) [Mass fraction]5.4 %Normal4.5-6.2The [facility] on above:Performed By: #### FERR, IRON, B12FOL, VITAD #### [facility] [address] [place] [address] Dr. Mishel Ball [id number] [Mass/Vol]172.0 ug/dLCritically high 50.0-170.0The [facility] HospitalComment on above:Performed By: #### FERR, IRON, B12FOL, VITAD #### [facility] [address] [address] [address] Mishel JaraID PROFILEon [id number]-HDL RATIO NORMSNorwalk Memorial HospitalCominsight surgical hospital on above:Result Comment: 3.3 - 4.4 LOW RISK 4.4 - 7.1 AVERAGE RISK 7.1 - 11.0 MODERATE RISK >11.0 HIGH RISKPerformed By: #### TSH, CMP, T7, LIPID #### [facility] [address] [address] [address] Mishel ShineCholesterol [Mass/Vol]156 mg/dLNormal<=200[facility] Comment on above:Performed By: #### TSH, CMP, T7, LIPID #### [facility] [address] [address] [address] Mishel Silvaesterol in HDL [Mass/Vol]61 mg/dLCritically cooe34-69IniKettering Memorial HospitalComment on above:Performed By: #### TSH, CMP, T7, LIPID #### [facility] [address] [address] [address] Mishel Silvaesterol in LDL [Mass/Vol]84.4 mg/dLNoMemorial HospitalCominsight surgical hospital on above:Performed By: #### TSH, CMP, T7, LIPID #### [facility] [address] [address] [address] Mishel Silvaesteromer.total/Cholesterol in HDL [Mass ratio]2.6 {ratio} NormalKettering Memorial HospitalCominsight surgical hospital on above:Performed By: #### TSH, CMP, T7, LIPID #### [facility] [address] [address] [address] Mishel Ziegler NORMAL> or = 60 mg/dl - LOW CARDIOVASCULAR RISK <40 mg/dl - HIGH CARDIOVASCULAR RISKNoMemorial HospitalCominsight surgical hospital on above:Performed By: #### TSH, CMP, T7, LIPID #### [facility] [address] [address] [address] Mishel ShineLDL CALC NORMALSEE BELOWNoMemorial HospitalComment on above:Result Comment: <100 mg/dl OPTIMAL 100 - 129 mg/dl NEAR OR ABOVE OPTIMAL 130 - 159 mg/dl BORDERLINE HIGH 160 - 189 mg/dl HIGH >190 mg/dl VERY HIGH Performed By: #### TSH, CMP, T7, LIPID #### [facility] [address] [place] [address] Dr. Mishel ShineTriglyceride [Mass/Vol]53 mg/dLNormal<=150The [facility] Comment on above:Performed By: #### TSH, CMP, T7, LIPID #### [facility] [address] [place] [address] Dr. Mishel ShineVLDL CALC10.6 mg/dLNoMemorial HospitalComment on above: Performed By: #### TSH, CMP, T7, LIPID #### [facility] [address] [place] [address] Dr. Mishel ShinePROF 14(COMP METB)on 32-12-4196Ycdybfe [Mass/Vol]3.7 g/dLNormal 3.4-5.0The [facility] HospitalComment on above:Performed By: #### TSH, CMP, T7, LIPID #### [facility] [address] [place] [address] Dr. Mishel ShineAlbumin/Globulin [Mass ratio]1.0 {ratio}NormalThe [facility] HospitalComment on above:Performed By: #### TSH, CMP, T7, LIPID #### [facility] [address] [place] [address] Dr. Mishel Barton [Catalytic activity/Vol]108 U/LYkeami45-283Hsx [facility] HospitalComment on above:Performed By: #### TSH, CMP, T7, LIPID #### [facility] [address] [place] [address] Dr. Mishel Garcias [Catalytic activity/Vol]26 U/NZfcdfj72-32Xmy [facility] HospitalComment on above:Performed By: #### TSH, CMP, T7, LIPID #### [facility] [address] [place] [address] Dr. Mishel Lopezon gap [Moles/Vol]13.1 mmol/LNormalKettering Memorial Hospital Comment on above:Performed By: #### TSH, CMP, T7, LIPID #### [facility] [address] [address] [address] Mishel ShineAST [Catalytic activity/Vol]21 U/RGonybq68-28Dhi [facility] HospitalComment on above:Performed By: #### TSH, CMP, T7, LIPID #### [facility] [address] [address] [address] Mishel ShineBilirubin [Mass/Vol]1.6 mg/dLCritically high0.2-1.0The [facility] HospitalComment on above:Performed By: #### TSH, CMP, T7, LIPID #### [facility] [address] [place] [address] Dr. Mishel ShineCalcium [Mass/Vol]9.0 mg/dLNormal8.5-10.1[facility] Comment on above:Performed By: #### TSH, CMP, T7, LIPID #### [facility] [address] [place] [address] Dr. Mishel ShineChloride [Moles/Vol]103 mmol/UNzhycz45-243TccKettering Memorial Hospital Comment on above:Performed By: #### TSH, CMP, T7, LIPID #### [facility] [address] [place] [address] Dr. Mishel ShineCO2 [Moles/Vol]26.6 mmol/BAycfmg95.0-32.0[facility] Comment on above:Performed By: #### TSH, CMP, T7, LIPID #### [facility] [address] [place] [address] Dr. Mishel ShineCreatinine [Mass/Vol]0.54 mg/dLCritically low0.55-1.02The [facility] HospitalComment on above:Performed By: #### TSH, CMP, T7, LIPID #### [facility] [address] [place] [address] Dr. Florentino ChangEGFR-AF INDONESIAN>60Normal>=60The [facility] HospitalComment on above:Performed By: #### TSH, CMP, T7, LIPID #### [facility] [address] [address] [address] Mishel Cano-NON AF INDONESIAN>60Normal>=60The [facility] HospitalComment on above:Performed By: #### TSH, CMP, T7, LIPID #### [facility] [address] [address] [address] Mishel ShineGlobulin (S) [Mass/Vol]3.7 g/dLNormalThe [facility] HospitalComment on above:Performed By: #### TSH, CMP, T7, LIPID #### [facility] [address] [place] [address] Dr. Mishel ShineGlucose [Mass/Vol]90 mg/xXWlxwdj84-121KzeKettering Memorial Hospital Comment on above:Performed By: #### TSH, CMP, T7, LIPID #### [facility] [address] [place] [address] Dr. Mishel ShinePotassium [Moles/Vol]3.7 mmol/LNormal3.5-5.1The [facility] Comment on above:Performed By: #### TSH, CMP, T7, LIPID #### [facility] [address] [place] [address] Dr. Mishel ShineProtein [Mass/Vol]7.4 g/dLNormal6.4-8.2[facility] Comment on above:Performed By: #### TSH, CMP, T7, LIPID #### [facility] [address] [place] [address] Dr. Mishel ShineSodium [Moles/Vol]139 mmol/PSfzyfx126-864WsgKettering Memorial Hospital Comment on above:Performed By: #### TSH, CMP, T7, LIPID #### [facility] [address] [place] [address] Dr. Mishel ShineUrea nitrogen [Mass/Vol]12.0 mg/dLNormal7.0-18.0The [facility] HospitalComment on above:Performed By: #### TSH, CMP, T7, LIPID #### [facility] [address] [place] [address] Dr. Mishel Darby nitrogen/Creatinine [Mass ratio]22.2 mg/mgNoMemorial HospitalCominsight surgical hospital on above:Performed By: #### TSH, CMP, T7, LIPID #### [facility] [address] [place] [address] Dr. Mishel Koroma 63-32-7884GES6.484 uIU/mLNormal0.358-3.740The [facility] on above:Performed By: #### TSH, CMP, T7, LIPID #### [facility] [address] [place] [address] Dr. Mishel Milligan B12 AND FOLATEon 81-78-2755Xlzjixgtl (Vitamin B12) [Mass/Vol] 404.0 pg/bOFjfxhg931.0-986.0[facility] on above:Performed By: #### FERR, IRON, B12FOL, VITAD #### [facility] [address] [place] [address] Dr. Mishel ShineFOLATE15.00 ng/mLNormal8.60-58.90The [facility] on above:Performed By: #### FERR, IRON, B12FOL, VITAD #### [facility] [address] [place] [address] Dr. Mishel ShineVITAMIN D 25 OHon 33-78-6095JWE D 25-OH32.0 ng/mLNormalThe [facility] on above:Performed By: #### FERR, IRON, B12FOL, VITAD #### [facility] [address] [place] [address] Dr. Mishel ACOSTA BELOWMercy Health St. Elizabeth Boardman HospitalCominsight surgical hospital on above: Result Comment: <20 ng/mL Vit D deficient 20 - <30 ng/mL Vit D insufficient 30 - 100 ng/mL Vit D sufficient >100 ng/mL Potential ToxicityPerformed By: #### FERR, IRON, B12FOL, VITAD #### [facility] [address] [place] [address] Dr. Mishel George-19 PCR (CVDTB)on [id number]-CoV-2 (COVID-19) RNA WALLY+probe Ql (Unsp spec)Not detectedNormalNOT DETECTEDThe [facility] Comment on above:Result Comment: This test is not yet approved or cleared by the [place] FDA. When there are no FDA-approved or cleared tests available, and other criteria are met, FDA can make tests available under an emergency access mechanism called an Emergency Use Authorization (EUA). The EUA for this test is supported by the [employer] of Health and Human Service's (HHS's) declaration that circumstances exist to justify the emergency use of in vitro diagnostics for the detection and/or diagnosis of the virus that causes COVID- 19. This EUA will remain in effect (meaning [...] of clinical signs and symptoms consistent with SARS-CoV-2.Performed By: #### FERR, IRON, B12FOL, VITAD #### [facility] [address] [place] [address] Dr. Mishel Hernández A AND B AGon [id number] Municipal Hospital on above:Result Comment: Negative for Flu A protein angiten. Infection due to Flu A cannot be ruled out. FluA angiten in the sample may be below the detection limit of the test.Performed By: #### FERR, IRON, B12FOL, VITAD #### [facility] [address] [place] [address] Dr. Mishel MéndezNEGJAELYN [facility] on above: Result Comment: Negative for Flu B protein antigen. Infection due to Flu B cannot be ruled out. FluB antigen in the sample may be below the detection limit of the test.Performed By: #### FERR, IRON, B12FOL, VITAD #### [facility] [address] [place] [address] Dr. Mishel Starr AGNegativeNormalNEGATIVE SEE COMMENTThe [facility] HospitalComment on above:Performed By: #### FERR, IRON, B12FOL, VITAD #### [facility] [facility] [address] [place], [place] [address] Dr. Mishel Hayes AGNegativeNormalNEGATIVE SEE COMMENTThe Ashtabula General HospitalComment on above:Performed By: #### FERR, IRON, B12FOL, VITAD #### [facility] [address], [place] [address] Dr. Mishel García, HIGH SENSITIVITYon 38-21-2783WXKKEX<4.8Tjbvcv7.0-51.3 The [facility]ula [facility] HospitalComment on above:Result Comment: CUT-OFF POINTS HAVE BEEN ESTABLISHED BASED ON THE FOURTH UNIVERSAL DEFINITIONS OF MYOCARDIAL INFARCTION. THE UPPER REFERENCE LIMIT (URL) OF TROPONIN, DEFINED THE 99TH PERCENTILE OF cTnI DISTRIBUTION IN A REFERENCE POPULATION, HAS BEEN CONFIRMED THE DECISION THRESHOLD FOR SC DIAGNOSIS.Performed By: #### FERR, IRON, B12FOL, VITAD #### [facility] [address] [place] [address] [address] Mishel ShineXR CHEST 1 Von 75-66-0177NE CHEST 1 VEXAMINATION: XR CHEST 1 V HISTORY: Cough COMPARISON: None. TECHNIQUE: Portable chest FINDINGS: The lung parenchyma is free of consolidation or infiltrate. No pneumothorax or pleural effusion. The cardiac, mediastinal and hilar contours are normal. The visualized osseous structures exhibit no gross abnormality. IMPRESSION: Normal chest x-ray Electronically authenticated by: ROLANDO ANSARI Date: 2022-06-20 21:08NoMemorial HospitalQuantiFERON TBon 04-33-6731Sjebnk Jovanny minus NIL9.61 IU/mLNormal [facility] HospitalComment on above:Performed By: #### AQF #### [facility] [address] [place] [address] Maintenance Planner: Anthony Rush TB Gold PlusNegativeNormalWyandot Memorial HospitalComment on above:Result Comment: (NOTE) Interpretive Data: Quantiferon TB Gold Plus Interferon [...] Mycobacterium tuberculosis Infection --- [place], 2010 (http://www.cdc.gov/mmwr/preview/mmwrhtml/hr8052i2.htm), for more information concerning test performance in low-prevalence populations and use in occupational screening.Performed By: #### AQF #### [employer] [address] [place] [address] Maintenance Planner: Anthony Rush TB1 minus NIL0.06 IU/mLNormal0.00-0.34 [facility] HospitalComment on above:Performed By: #### AQF #### [facility] [address] [place], [place] [address] Maintenance Planner: Anthony Rush TB2 minus NIL0.10 IU/mLNormal0.00-0.34 [facility] HospitalComment on above:Performed By: #### AQF #### [employer] [address] [place] [address] Maintenance Planner: Coretta RushON NIL0.06 IU/mLNormalWyandot Memorial HospitalComment on above:Result Comment: (NOTE) Performed by [employer], [address] [place], [place] [id number] [email or web address], Kemal Lainez MD, Lab. DirectorPerformed By: #### AQF #### [facility] [address] [place] [address] Maintenance Planner: Antelmo Rush IgG-[facility] 57-43-3883Nfltqae (Rubeola) IgG Ab-[facility] Medical CenterComment on above:Result Comment: Results suggest response to immunization orprior exposure to the virus. REFERENCE VALUE Vaccinated: Positive (>=1.1 AI)Unvaccinated: Negative (<=0.8 AI)Performed By: #### [id number] ####[facility] VKINEGRUGVUT[address] [place], [place] [address]Vrvhywb IgG Ab Index-[place]3.2NGuernsey Memorial HospitalComment on above:Result Comment: Test Performed by:[facility] - [address] [address]Jtpplqbig By: #### CD:[id number] ####[facility] EVQWSOBPINRW[address] [place], [place] [address]LV IgG-[facility] 98-23-5913Uezjqwnlk IgG Antibody Index-[place]2.7[facility] HospitalComment on above:Result Comment: Test Performed by:[facility] [employer] - [address] [address]Ggalmpjmr By: #### VZPG ####[facility] EACGTJYQOSYU[address] [place], [place] [address]Uwrlssluf-Okqlkx IgG Antibody-[facility] Medical CenterComment on above:Result Comment: Results suggest response to immunization orprior exposure to the virus. ------REFERENCE VALUE Vaccinated: Positive (>=1.1 AI)Unvaccinated: Negative (<=0.8 AI)Performed By: #### VZPG ####[address] [address]Ecl Bs Abon 03-21-2018 Hep B Surface Antibody InterpPositiveNormSumma Health Akron CampusComment on above:Result Comment: Patient is considered to be immune to infection with HBV.Performed By: #### HBSAB ####[address] [address]Szsleje IgGon 02-17-0333Grrbadx IgG Ab InterpReactive [facility] Community HospitalComment on above:Result Comment: The presence of detectable IgG-class antibodies indicates immunity to the rubella vi linda through prior immunization or exposure. Individuals testing reactive (positive) are considered immune to rubella infection.This result was obtained with the Access Rubella IgG EIA. Despite calibration by means of a reference preparation, values obtained with different split leather mosser's assay methods may not be used interchangeably. The magnitude of the reported IgG level CANNOT be correlated to an endpoint titer.Performed By: #### RUB ####[address] [address] Vital Signs Date TimeVital SignValuePerforming HwprwswjoVsswikha94-58-8085 18:17-0400Body olrvmt512.56 cmYahir Feng MD Work Phone: [facility]10-20-2025 18:17-0400 Body pehxgycfxpv28.9 [degF]Yahir Feng MD Work Phone: [phone]10-20-2025 18:17-0400 Body bofxdu99.2 kgYahir Feng MD Work Phone: [phone]10-20-2025 18:17-0400 Diastolic blood jicaatlj81 mm[Hg]Yahir Feng MD Work Phone: [phone]10-20-2025 18:17-0400 Heart rehg696 /Danial Feng MD Work Phone: [phone]10-20-2025 18:17-0400 Respiratory rate18 /Danial Feng MD Work Phone: [facility]10-20-2025 18:17-0400 SaO2% (BldA) [Mass fraction]99 %Yahir Feng MD Work Phone: [facility]10-20-2025 18:17-0400 Systolic blood srrbbern719 mm[Hg]Yahir Feng MD Work Phone: [facility]10-15-2025 10:52-0400 Body pkrojf474.6 cmNatalie Birmingham SERGEANT AT ARMS-WEATHERIZATION ADMINISTRATOR Work Phone: [phone]10-15-2025 10:52-0400Body mass index (BMI) [Ratio]28.08 kg/t6Pgkypsq Birmingham SERGEANT AT ARMS-WEATHERIZATION ADMINISTRATOR Work Phone: 1(323)[address]10-15-2025 10:52-0400Body rjwbhi24.25 kgNatalie Birmingham SERGEANT AT ARMS-WEATHERIZATION ADMINISTRATOR Work Phone: [phone])[address]10-15-2025 10:52-0400Diastolic blood lgrjoukn13 mm[Hg]Grecia Birmingham SERGEANT AT ARMS-WEATHERIZATION ADMINISTRATOR Work Phone: [phone])[address]10-15-2025 10:52-0400Heart rate 96 /minNatalie Birmingham SERGEANT AT ARMS-WEATHERIZATION ADMINISTRATOR Work Phone: 1([phone] [place], [place] [address]10-15-2025 10:52-0400Systolic blood mm[Hg]Grecia Birmingham SERGEANT AT ARMS-WEATHERIZATION ADMINISTRATOR Work Phone: 1(179)[address] [place], [place] [address]10-14-2025 09:30-0400Body zldysw945.56 cmYahir Feng MD Work Phone: [facility]10-14-2025 09:30-0400 Body gwcjtsienum06.8 [degF]Yahir Feng MD Work Phone: [facility]10-14-2025 09:30-0400 Body jbrejx03.84 kgYahir Feng MD Work Phone: [facility]10-14-2025 09:30-0400 Diastolic blood dicvlhsc71 mm[Hg]Yahir Feng MD Work Phone: 1(307)[address] [place], [place] [address]210-14-2025 09:30-0400 Heart rate91 /Danial Feng MD Work Phone: 1(419)[address] [place], [place] [address]67210-14-2025 09:30-0400 Respiratory rate16 /Danial Feng MD Work Phone: 1(419)[address] [place], [place] 2867210-14-2025 09:30-0400 SaO2% (BldA) [Mass fraction]100 %Yahir Feng MD Work Phone: 1(419)[address] [place], [place] [address]67210-14-2025 09:30-0400 Systolic blood ivvbteck754 mm[Hg]Yahir Feng MD Work Phone: 1(419)[address] [place], [place] [address]210-06-2025 16:16-0400 Body plebdn624.56 cmYahir Feng MD Work Phone: 1(419)[address] [place], [place] [address]210-06-2025 16:16-0400 Body mass index (BMI) [Ratio]28.5 kg/g3MsbbbkaYahir Feng MD Work Phone: 1(419)[address] [place], [place] [address]210-06-2025 16:16-0400 Body .29 kgYahir Feng MD Work Phone: 1(419)[address] [place], [place] [address]210-06-2025 16:16-0400 Diastolic blood ndocatvg18 mm[Hg]Yahir Feng MD Work Phone: 1(419)[address] [place], [place] [address]210-06-2025 16:16-0400 Heart rate96 /Danial Feng MD Work Phone: [phone])[address] [place], [place] [address]67210-06-2025 16:16-0400 Systolic blood yayjkhxw078 mm[Hg]Yahir Feng MD Work Phone: 1(637)[address] [place], [place] 2867207-14-2025 12:52-0400 Body xzehum075.6 cmJass Silva MD Work Phone: 1(897)585-[address] [place], [place] 3813407-14-2025 12:52-0400Body mass index (BMI) [Ratio]28.03 kg/f8SxvsorsypJass Silva MD Work Phone: 1(505)855-[address] [place], [place] 3813407-14-2025 12:52-0400Body olfcky09.07 kgJass Silva MD Work Phone: 1(481)267-[address] [place], [place] 3813407-14-2025 12:52-0400Diastolic blood xntgehjd34 mm[Hg]Jass Silva MD Work Phone: 1(783)[phone] [place], [place] 3813407-14-2025 12:52-0400Heart rate 72 /minJass Silva MD Work Phone: 1(259)059-[address] [place], [place] 3813407-14-2025 12:52-0400Systolic blood kdbdqoal627 mm[Hg]Jass Silva MD Work Phone: 1(867)164-[address] [place], [place] 3813406-27-2025 13:58-0400Body potvpv169.6 cmKayode Billy MD Work Phone: [facility]06-27-2025 13:58-0400 Body mass index (BMI) [Ratio]27.46 kg/r8LcgmeKayode Billy MD Work Phone: [facility]06-27-2025 13:58-0400 Body yumcsu35.58 kgKayode Billy MD Work Phone: [phone]-[facility]04-02-2025 16:09-0400 Body .6 Adam Rodriguez BUYER AGENT Work Phone: [facility] HospitalUkqcsqavbn31-08-4007 16:09-0400Body mass index (BMI) [Ratio]28.67 kg/k5GkgupgSerenity Rodriguez BUYER AGENT Work Phone: [facility] HospitalYhgtbbcqlb39-16-4521 16:09-0400Body .75 kgSerenity Rodriguez BUYER AGENT Work Phone: [facility] HospitalTxyomabifg35-23-2572 16:09-0400Diastolic blood mvnlqquj28 mm[Hg]Serenity Rodriguez BUYER AGENT Work Phone: noC[facility] HospitalUffmnghwve06-70-5654 16:09-0400Heart rate84 /min Serenity Rodriguez BUYER AGENT Work Phone: noC[facility] HospitalMdeyazfayr37-75-8579 16:09-0400Systolic blood eanudpbf023 mm[Hg]Serenity Rodriguez BUYER AGENT Work Phone: noC[facility] HospitalQxnbqicmit49-83-3968 12:14-0500Body mass index (BMI) [Ratio]27.98 kg/k4Pdsmismaria guadalupe Durham BUYER AGENT Work Phone: [facility] HospitalEeciejwcso96-40-8717 12:14-0500Body temperature 97.59 [degF]Chuck Durham BUYER AGENT Work Phone: [facility] HospitalLlafdscjxw11-59-0081 12:14-0500Body kglocq50.94 kgRamaria guadalupe Durham BUYER AGENT Work Phone: [facility] HospitalAarnuarchg96-58-9983 12:14-0500Diastolic blood biyknkvc79 mm[Hg]Chuck Durham BUYER AGENT Work Phone: [facility] HospitalOyvknfmlxl85-26-2604 12:14-0500Heart rate91 /min Chuck Durham BUYER AGENT Work Phone: [facility] HospitalAxesswgpqx02-09-8485 12:14-7910PbR0% (BldA) [Mass fraction]99 %Chuck Durham BUYER AGENT Work Phone: [facility] HospitalCdoxxkerbw74-92-8091 12:14-0500Systolic blood sjqibcyi580 mm[Hg]Chuck Durahm BUYER AGENT Work Phone: [facility] HospitalBtowotjhjf94-86-9694 15:24-0400Body yimhnb772.6 cmFeneiltanna Gibbs BUYER AGENT Work Phone: noC[facility] HospitalYhleecfukh71-52-4957 15:24-0400Body mass index (BMI) [Ratio]27.98 kg/w1Zfuonhbglenn Watsongel BUYER AGENT Work Phone: noCedar [facility] HospitalFtgukruadr04-58-2168 15:24-0400Body axnoqp03.94 kgFelicia Windnagel BUYER AGENT Work Phone: [facility] HospitalVxiibxxuct91-41-8371 15:24-0400Diastolic blood guxebrti31 mm[Hg]Alta Watsongel BUYER AGENT Work Phone: [facility] HospitalJxjeidycaw93-86-1740 15:24-0400Heart rate83 /min Alta Arteaganagel BUYER AGENT Work Phone: [facility] HospitalJwmhczdfrl47-20-6471 15:24-0400Systolic blood mm[Hg]Alta Watsongel BUYER AGENT Work Phone: [facility] HospitalEqnynmksmt72-41-1307 15:29-0400Body .6 cmFeglenn Watsongel BUYER AGENT Work Phone: [facility] HospitalQwcocsfyxs24-17-0710 15:29-0400Body mass index (BMI) [Ratio]27.12 kg/w1Yqponfaglenn Watsongel BUYER AGENT Work Phone: [facility] HospitalEambdlnsox06-03-6816 15:29-0400Body epnakh18.67 kgFeglenn Gibbs BUYER AGENT Work Phone: [facility] HospitalKuuvswqbug42-24-9378 15:29-0400Diastolic blood mjzzctnu48 mm[Hg]Alta Watsongel BUYER AGENT Work Phone: [facility] HospitalAbmnpxlmdh90-92-1455 15:29-0400Heart rate79 /min Alta Watsongel BUYER AGENT Work Phone: [facility] HospitalGjjjmnzvoj28-76-2817 15:29-0400Systolic blood whvkxzba781 mm[Hg]Alta Jenninagel BUYER AGENT Work Phone: [facility] HospitalZakofjgfht67-95-6577 20:30-0400Diastolic blood mm[Hg]Al Vivian [facility]05-05-2024 20:30-0400Heart bode695 /minNoah Vivian [facility]05-05-2024 20:30-0400Mean blood xjilmlue689 mm[Hg]Al Vivian [address]05-05-2024 20:30-0406IkD0% (BldA) [Mass fraction]99 %Al Vivian [address] [place], [place] [address]305-05-2024 20:30-0400 Systolic blood pgnbaacs047 mm[Hg]Al Vivian [address] [place], [place] [address]305-05-2024 20:05-0400 Diastolic blood mm[Hg]Al Vivian [address] [place], [place] [address]305-05-2024 20:05-0400Heart xrks851 /minNoah Vivian [address] [place], [place] [address]Comment on above:Result Comment: Pt crying at this point and visibly upset about the circumstances. 10-23-2023 20:05-0400Mean blood lnzonpkg697 mm[Hg]Al Vivian [address] [place], [place] [address]305-05-2024 20:05-1360VtK3% (BldA) [Mass fraction]98 %Al Viivan [address] [place], [place] [address]305-05-2024 20:05-0400 Systolic blood rqwmnogq458 mm[Hg]Al Vivian [address] [place], [place] [address]305-05-2024 19:59-0400Body ffnbqudaflq58.24 [degF]Al Vivian [address] [place], [place] [address]305-05-2024 19:59-0400 Diastolic blood dueuimlf34 mm[Hg]Al Vivian [address] [place], [place] [address]305-05-2024 19:59-0400Heart cyci345 /minNoah Vivian [address] [place], [place] [address]305-05-2024 19:59-0400 Respiratory rate18 /minNoah Vivian [facility]05-05-2024 19:59-8907DmR9% (BldA) [Mass fraction]99 %Al Vivian [facility]05-05-2024 19:59-0400 Systolic blood mqbzedaq272 mm[Hg]Al Vivian [address] [place], [place] [address]305-05-2024 19:44-0400Body uxsvohnzenj95.24 [degF]Al Barillasner [facility]05-05-2024 19:44-0400Heart lalw834 /minAl Vivian [facility]05-05-2024 19:44-0400 Respiratory rate18 /minAl Vivian [facility]04-24-2023 17:40-0400Body wzaoch779.56 cmPamelmatty Dupree Other [place] [employer] Other 04-24-2023 17:40-0400Body mass index (BMI) [Ratio] 28.22 kg/s1MculaqMariposa Dupree Other [place] [employer] Other 04-24-2023 17:40-0400Body atcqwccbtec64.7 [degF]Mariposa Okeefemond Other [facility] Other 04-24-2023 17:40-0400Body .57 kgMariposa Dupree Other [facility] Other 04-24-2023 17:40-0400Diastolic blood ydgdohws33 mm[Hg] Mariposa Okeefemond Other [facility] Other 04-24-2023 17:40-0400Respiratory rate18 /Giancarlo Dupree Other [facility] [employer] Other 04-24-2023 17:40-8226UeR1% (BldA) [Mass fraction]100 % Mariposa Dupree Other [place] [employer] Other 04-24-2023 17:40-0400Systolic blood vhvcddpe501 mm[Hg] Mariposa Dupree Other [employer] Other 10-02-2018 21:42-0400Body surface area Derived from vurkkjj373.0 mIU/mLLAWRENCE Regional Medical CenterComment on above: Performed By: #### HBSAB ####[place] [address] Encounters Encounter DateEncounter TypeCare ProviderFacilityStart: 27-71-5202ngupuauwtdcayetano JesusFacility:[facility] Hospitaltart: 04-08-2025 End: 21-87-0445Vrxnerjcm department patient visitYahir Feng MD Work Phone: 1(395)754-7840439-2522-Urjqgbzzp Room Work Phone: Start: 04-03-2025 End: 73-92-5805Bqpfjn outpatient visit Jerry Castro SERGEANT AT ARMS-WEATHERIZATION ADMINISTRATOR Work Phone: [facility], A Department of Comment on above:Acquired hypothyroidism (Primary Dx) Start: 04-03-2025 End: 32-51-9250zcjkbieshhEJYAIXO R MARIENTHALCity Hospitaltart: 04-02-2025 End: 89-19-0674Fnysevjdn department patient visitYahir Feng MD Work Phone: [phone]-Smaxosiid Room Work Phone: Start: 65-64-5514mqtddhkszxKZWLRMBII M GUARDIA [facility] Centertart: 03-25-2025 End: 06-86-7573quincxnvkwRxrvgdc M Hoy MD Work Phone: [facility] Work Phone: Start: 03-25-2025 End: 78-45-8846Qfwwjig encounter Urszulavalerie Macdann Freedman [facility] Work Phone: Start: 02-26-2025 End: 68-75-9739Vatkmhclo encounterIsidoro Mir MD Work Phone: OrthopaedicsStart: 01-15-2025 End: 36-83-2186Fulshl outpatient visit 15 minutesFrsamreen Billy MD Work Phone: [facility] Medical Office BuildingComment on above: Femoroacetabular impingement of left hip (Primary Dx)Start: 01-15-2025 End: 57-90-6587iczhlmcmupXTYNJJefferson Hospital AmbulatoryStart: 01-04-2025 End: 56-08-7341Gtjpnawgvo hospital visit by Jordana Long [address] [place], [place] [address]Comment on above:Tear of left acetabular labrum, initial encounter Start: 01-04-2025 End: 22-76-2368gppacnhlzwHZWNB [facility] Start: 12-31-2024 End: 68-50-3658Qqnyfl outpatient visit 25 minutesJass Silva MD Work Phone: [facility] Department of Comment on above:Acquired hypothyroidism (Primary Dx) Start: 12-31-2024 End: 72-98-1888rbkdglwpzmUVOYYOECH M [facility] Start: 12-26-2024 End: 10-32-3725Zeuyrakun encounterMonroe [place] DMD, MD Work Phone: [facility] Oral SurgeryStart: 12-14-2024 End: 76-02-6417Tmbjjq outpatient new 30 minutesKayode Billy MD Work Phone: [facility] CenterComment on above:Tear of left acetabular labrum, initial encounter (Primary Dx)Start: 12-14-2024 End: 74-60-2631Pvtyabfqcy hospital visit by physicianEloisa Brown X-Ray 1[facility] Medical CenterComment on above:Left hip painStart: 12-14-2024 End: 82-65-8883udrifbgqydDDGSV M [facility] Start: 09-19-2024 End: 95-65-4872ddenencrodXLLTIP GILLMORNot AvailableStart: 09-19-2024 End: 21-24-7277Dqgsop outpatient visit 25 minutesSerenity Rodriguez BUYER AGENT Work Phone: aNA BELLEVUEComment on above:Hypersomnia (Primary Dx); Periodic limb movementStart: 09-19-2024 End: 92-89-0559Muaufi flowsheetSerenity Rodriguez BUYER AGENT Work Phone: aNA BELLEVUEStart: 09-19-2024 End: 00-35-5526Mcfbpy flowsheetAngevalerie Rodriguez BUYER AGENT Work Phone: aNA BELLEVUEStart: 09-14-2024 End: 37-47-0450WhtglwLazmzn Gillmor BUYER AGENT Work Phone: ANA BELLEVUEComment on above:HypersomniaStart: 09-12-2024 End: 09-55-9037Wmhbwsoyx encounterJuluis [place] DMD, MD Work Phone: [facility] ORStart: 07-04-2024 End: 07-23-8371Chieuh outpatient visit 25 minutesRachel Camille Durham BUYER AGENT Work Phone: [facility] S[facility] UCComment on above:Pharyngitis, unspecified etiology (Primary Dx); Acute tonsillitis, unspecified etiologyStart: 07-04-2024 End: 99-76-2646eaqvadwlnkTTJKSN L LEXIEOKNot AvailableStart: 06-26-2024 End: 38-67-3555Tnhmgb OnlyForrest Quick DMD Work Phone: [facility] Oral SurgeryStart: 06-15-2024 End: 34-28-4679LmpknqRcwrbja C Windnagel BUYER AGENT Work Phone: noMS [facility] ROUTEComment on above:Hypersomnia Start: 04-19-2024 End: 18-33-1045yxduztwhgmCAWXUTB C WINDNAGELNot AvailableStart: 04-19-2024 End: 18-84-5491Isgurr outpatient visit 25 minutesFelicia C Windnagel BUYER AGENT Work Phone: [facility] R[facility]TEComment on above:Hypersomnia (Primary Dx)Start: 04-19-2024 End: 81-25-3774Byefnv flowsheetFelicia C Windnagel BUYER AGENT Work Phone: [facility] R[facility]TEStart: 04-19-2024 End: 89-63-2903Lllmpa flowsheetFelicia C Windnagel BUYER AGENT Work Phone: [facility] R[facility]TEStart: 04-16-2024 End: 05-89-9148juctykjieqJDTQOXB PROVIDERFacility:METROHealthStart: 04-16-2024 End: 76-75-3783Awztsyf encounter procedureJuluis [place] DMD, MD Work Phone: [facility] Oral SurgeryComment on above:Abnormal tooth eruption (Primary Dx)Start: 03-22-2024 End: 91-69-0398Ivhdrl outpatient visit 25 minutesFelicia C Windnagel BUYER AGENT Work Phone: [facility] [place] ROUTEComment on above:Hypersomnia (Primary Dx)Start: 03-22-2024 End: 35-00-9908srwlctkuxdBFWHEHS C WINDNAGELNot AvailableStart: 03-22-2024 End: 15-37-1778Fliizj flowsheetFelicia C Windnagel BUYER AGENT Work Phone: [facility] R[facility]TEStart: 03-22-2024 End: 20-51-1533Iwxzbs flowsheetFelicia C Windnagel BUYER AGENT Work Phone: [facility] ROUTEStart: 01-16-2024 End: 76-37-7665tqzhqfgjkeHUWGSB Kevin AvailableStart: 10-23-2023 End: 38-24-8696Bmdhldoop department patient visitAl ParkFacility:[facility] [place] Start: 10-23-2023 End: 05-42-5245Mafcebefl department patient visitAl Park [facility] Start: 10-11-2022 End: 53-97-0584yapplafrehHuohsu Dymond Other [facility] [employer] Other Start: 66-21-4901Kurxzm outpatient new 20 minutes Mariposa DupreeFPG Urgent Care ClydeStart: 08-20-2022 End: 98-68-0571kpckgjqiemXN YAHIR HOY .Facility:X3Kvltk: 08-17-2022 End: 89-33-7931rltcjufxomQB YAHIR HOY .Facility:P8Scehi: 07-21-2022 End: 42-21-6390qpocaisjfgEA YAHIR HOY .Facility:N2Sjncg: 45-97-1492Fdhvtwwow for general adult medical examination without abnormal findingsDR YAHIR HOY . [facility]: 07-12-2022 End: 16-92-6261kvsihcscdmVX YAHIR HOY .Facility:L7Wlcvf: 07-12-2022 End: 13-28-5285Hfljhlzip for general adult medical examination without abnormal findingsDR YAHIR HOY .Facility:W6Armfv: 06-20-2022 End: 74-32-2620rlenlukpnqPO YAHIR HOY .Facility:U1Hwepn: 05-11-2019 End: 92-08-5143Qxpcbjn encounter Gay[facility] CenterStart: 05-11-2019 End: 92-10-0180Hwjmpcyzxi hospital visit by Nishant Wills [facility] CTRStart: 03-21-2018 End: 66-33-6693Sxzdupo encounterLAWRENCE DEQUAN LANDERSacility:[facility] Procedures DateProcedureProcedure DetailPerforming ClinicianStart: 28-53-7692Vkj any jt lower extrem w/o contrast matrlFrsamreen Billy MD Work Phone: Start: 65-05-0529Yoneajglk hip arthrography w/o anesthesiaKayode Billy MD Work Phone: Start: 89-07-5506Qndga hip unilateral with pelvis 2-3 viewsFrsamreen Billy MD Work Phone: Start: 39-34-2248Gqxgp streptococcus group a amplified probe tqRachel Camille Durham BUYER AGENT Work Phone: Start: 34-79-1217Kh cell mediated antign respnse gamma interferonPIERRE KNIGHT Plan of Treatment DateCare ActivityDetailAuthorStart: 59-13-1293Gmvmdtcq (RZV) Vaccine (1 of 2) Shingles (RZV) Vaccine (1 of 2)[facility]HealthStart: 01-32-1404Epzsou Vaccines (1 of 2)Zoster Vaccines (1 of 2)[facility] CenterStart: 04-03-2026 Adult BMI ScreeningAdult BMI ScreeningMercy Health [facility] Hospital SystemStart: 12-31-2025 Adult BMI ScreeningAdult BMI ScreeningProFirelands Regional Medical Center SystemStart: 12-31-2025 Tobacco ScreeningTobacco ScreeningProFirelands Regional Medical Center SystemStart: 09-23-2025 End: 02-42-3828Epazies encounter kvpayowxn62/06/2026 11:45 AM EDT Office Visit [facility] A Department of [address] [place] [id number] Eren Ceron MD [address] [place] [address] [facility], [facility] Department of [facility] HospitalStart: 06-10-2025 End: 47-54-7637Wmkvpoc encounter nivldshnw07/22/2025 8:00 AM EST Office Visit [facility] Oral Surgery [address] [place] [address] [place] DMD, MD [address] [place] [address] [facility] Oral SurgeryStart: 48-95-4998QenppdmfhDelaware County Hospitaltart: 86-44-9992Tilrlilq identified in Blood by Culture Blood CultureDelaware County Hospitaltart: 04-03-2025 End: 95-66-2607Cwxvijp encounter thzhkmniu30/15/2025 11:15 AM EDT Office Visit [facility] Adult Endocrinology, A Department of [address] [id number] Grecia Castro, SERGEANT AT [employer] ADMINISTRATOR [address] [address] [facility] Adult Endocrinology, [facility]: [id number] vaccinationInfluenza Vaccine (#1) [facility]Start: 03-20-2025 End: 03-60-1504Yszihry profile includes TSH NA2Exqhgsw profile includes TSH FT4 Lab Routine Acquired hypothyroidism Expected: 03/20/2025 (Approximate), Expires: 12/31/2025[facility] SystemComment on above:Expected: 03/20/2025 (Approximate), Expires: 12/31/2025Start: 32-28-0039EAZCA-19 Vaccine ( season)COVID-19 Vaccine ( season)[facility] SystemStart: 22-28-3076Cpfofmkat vaccinationChristian HospitalStart: 02-14-2025 End: 05-34-2990Snuzejf profile includes TSH YE0Lwgxpdu profile includes TSH FT4 Lab Routine Acquired hypothyroidism Expected: 02/14/2025, Expires:12/31/2025 [facility] Work Phone: comment on above:Expected: 02/14/2025, Expires: 12/31/2025Start: 01-21-2025 End: 53-99-7972Nlhcfsk encounter dcxxzgmug26/04/2025 11:00 AM EDT Office Visit [facility] Oral Surgery [address] [place] [address] Monroe Hamlin DMD, MD [address] [place] [address] [facility] Oral SurgeryStart: 01-15-2025 End: 24-34-4573Dmwafih encounter yxthkefhi59/29/2025 10:45 AM EDT Office Visit [facility] [address] [phone] Kayode Billy MD [address] [facility], [address] [place] [address] [phone] [facility] BuildingStart: 12-27-2024 End: 25-22-3037Zlgpcwm encounter qdanlafhi76/10/2025 1:40 PM EDT Office Visit BESSIE HERNANDEZ [address] [place] [phone] Serenity Rodriguez NP [address] [place] [address] BESSIE RAMÍREZtart: 12-14-2024 End: 54-18-7540CM Hip - left ArthrogramMR arthrogram hip left Imaging Routine Tear of left acetabular labrum, initial encounter Expected: 12/14/2024, Expires: 12/14/2025[facility] Service Area Work Phone: Comment on above:Expected: 12/14/2024, Expires: 12/14/2025Start: 12-14-2024 End: 62-59-7329UW Hip - left Single viewXR arthrogram hip left Imaging Routine Tear of left acetabular labrum, initial encounter Expected: 12/14/2024, Expires: 12/14/2025[facility] Work Phone: Comment on above:Expected: 12/14/2024, Expires: 12/14/2025Start: 09-19-2024 End: 30-61-2895Stbxpqm encounter /02/2025 4:00 PM EDT Office Visit BESSIE HERNANDEZ [address] [place] [phone] Serenity Rodriguez NP [address] [place], [place] BESSIE DARRELLtart: 08-22-2024 End: 66-45-3695Wqmphcy encounter rrnubhzku41/05/2025 2:00 PM EST Office Visit [facility] Oral Surgery [address] [place] [phone] Monroe Hamlin DMD, MD [address] [place], [place] [phone] [facility] Oral SurgeryStart: 04-19-2024 End: 14-49-5380Qsalbct encounter bkddeeqdy78/31/2024 3:20 PM EDT Office Visit HUDSON HERNANDEZ [address] [place] [phone] Alta Gibbs BUYER AGENT [address] [place] [address] HUDSON DAVIS ROUTEStart: 03-22-2024 End: 10-88-2234Nqszfbh encounter mmddyfmfv53/03/2024 3:20 PM EDT Office Visit NOMTonya HERNANDEZ [address] [place] [phone] Alta Gibbs, BUYER AGENT [address] [place] [address] ArrivedPABLOMS HERNANDEZ STATE ROUTEComment on above:ArrivedStart: 94-13-3993UARME-19 Vaccine ( season)COVID-19 Vaccine ( season)[facility]: 80-54-8309HUZLO-19 Vaccine ( season)COVID-19 Vaccine ( season)[facility]: 02-19-2024 Influenza vaccinationInfluenza Vaccine (#1)[facility] HealthcareStart: 2023 Screening for malignant neoplasm of cervixNOMS HealthcareStart: 84-30-6628MTG Vaccine (optional start 27-45 years)HPV Vaccine (optional start 27-45 years) [facility]: 49-91-6774DPL Vaccines (1 - 3-dose standard series)HPV Vaccines (1 - 3-dose standard series)[facility]: 05-22-5406Awblsscot vaccinationFlu vaccine (#1)[facility]: 73-05-6733JUaN/Tdap/Td Vaccines (1 - Tdap)DTaP/Tdap/Td Vaccines (1 - Tdap) [facility]: 62-87-1534Uspcdshe cancer screenCervical cancer screenSt. [facility]'s [facility]: 70-90-7108Wscyuhbdh for malignant neoplasm of cervixNOMS HealthcareStart: 95-79-2031XEfW,Tdap and Td Vaccines (1 - Tdap)DTaP,Tdap and Td Vaccines (1 - Tdap)[facility] SystemStart: 30-20-1035Ydykjcgoc A (HAV) Vaccine (optional start 19+ years)Hepatitis A (HAV) Vaccine (optional start 19+ years)[facility]: 42-70-4984Nrqnlhhgg B vaccinationHepatitis B (HBV) Vaccine (1 of 3 - 19+ 3-dose series)[facility] Start: 44-87-9399Hnlvuvvaf B Vaccines (1 of 3 - 19+ 3-dose series)Hepatitis B Vaccines (1 of 3 - 19+ 3-dose series)[facility]: 01-63-1878Eehgj BMI Follow Up PlanAdult BMI Follow Up PlanProBaptist Medical Center South Health SystemStart: 65-10-0418Hrhlxpewq C screeningMetroHealthStart: 57-04-8225Vbov BoosterTdap BoosterMetroHealthStart: 45-00-6429DKL screenHIV screenSt. [facility]: 60-02-0783RDH screeningHIV TestMetroUniversity Hospitals Samaritan Medical [facility]: 2006 Varicella vaccinationVaricella Vaccines (1 of 2 - 13+ 2-dose series)[facility]: 70-48-6171Qftclkwunk ScreeningDepression Screening [facility]art: 92-40-6890JFtB/Tdap/Td vaccine (1 - Tdap) DTaP/Tdap/Td vaccine (1 - Tdap)[facility]: 00-34-1049HQT vaccine (1 - Female 2-dose series)HPV vaccine (1 - Female 2-dose series)[facility]: 52-00-8160LGV Vaccines (1 of 1 - Standard series)MMR Vaccines (1 of 1 - Standard series)[facility]: 95-71-1826Wsbnfrxgn Vaccine (1 of 2 - 2-dose childhood series)Varicella Vaccine (1 of 2 - 2-dose childhood series)[facility]: 78-51-8905NAL screeningHIV Screening [facility]: 32-62-4474Fjdnh panelLipid Panel [facility]: 78-42-2585Gqbstt Adult PhysicalYearly Adult PhysicalUnUniversity Hospitals Beachwood Medical CenterPatient EducationKettering Health Greene Memorial Ctr Work Phone: Patient referralKettering Health Greene Memorial Ctr Work Phone: End: 26-97-8900Cjsnniuoiza TB GoldQuantiferon TB Gold Microbiology Routine Once for 1 Occurrences starting 05/11/2019 until 05/11/2019[place], [place] Comment on above:Once for 1 Occurrences starting 05/11/2019 until 05/11/2019 Quantiferon TB GoldQuantiferon TB Gold Microbiology Routine 05/11/2019 3:54 PM [place] End: 63-96-4034Vtpynkqutkg [Units/volume] in Serum or PlasmaTSH Lab Routine Acquired hypothyroidism 1 Occurrences starting 04/03/2025 until 04/03/2026 [facility] Work Phone: comment on above:1 Occurrences starting 04/03/2025 until 04/03/2026 End: 70-07-3010Yymvfuics (T4) free [Mass/volume] in Serum or PlasmaT4, free Lab Routine Acquired hypothyroidism 1 Occurrences starting 04/03/2025 until 04/03/2026[facility] SystemComment on above:1 Occurrences starting 04/03/2025 until 04/03/2026 End: 94-26-4320Zgvknfncowupcjbz (T3) Free [Mass/volume] in Serum or PlasmaT3, free Lab Routine Acquired hypothyroidism 1 Occurrences starting 04/03/2025 until 04/03/2026[facility]Fire[facility] SystemComment on above:1 Occurrences starting 04/03/2025 until 04/03/2026 Immunizations Immunization DateImmunizationNotesCare OmnwjdjyYkcnntwb31-74-3635bekczafnx virus vaccine, unspecified formulationFelicia Windnagel BUYER AGENT Work Phone: Christian HospitalOmvrhtlnvg97-46-4867Uxaxcf Monovalent (12+ yrs) SARS-COV-2 (COVID-19) vaccine, mRNA, spike protein, LNP, pres. free, 30mcg/0.3mL dose (MWZ=506)Hcance Quick DMD Work Phone: [phone]fKtthqr39-05-7377Mpdvpd Monovalent (12+ yrs) SARS-COV-2 (COVID-19) vaccine, mRNA, spike protein, LNP, pres. free, 30mcg/0.3mL dose (BGX=699)Chance Quick DMD Work Phone: [phone]vGbhffe84-13-2297lbadyfdgx virus vaccine, unspecified formulationForrest Quick DMD Work Phone: [phone]vCdmtdr06-06-9866hwlyuupbw, seasonal, injectable, preservative freeForrest Quick DMD Work Phone: [facility] Payers DatePayer CategoryPayerPolicy [id number]-pay2025Medicaid (Managed Care)[employer] .[id number] Health InsuranceUC HEALTH MEDICAID [id number] 2023Medicaid [id number] 2022Medicaid [id number] UnknownFRONTPATH FRONTPATH [facility] xxxxxxxxx 2014- Present [phone] [address] [place] [address]ojpelmerp [id number] 2..1.488209.3.57[id number] 2.1.570487.3.57[id number] 2.16.840.1.795368.3.57[id number] 2.840.1.331215.3.57[id number] 2.840.1.798506.3.57[id number] 2.840.1.835151.3.57[id number] 2.840.1.849679.3.57[id number] 2.840.1.489766.3.57[id number] 2.840.1.877654.3.57[id number] 2.840.1.097804.3.57[id number] 2.84.1.472342.3.57[id number] 2.840.1.904940.3.57[id number] 2.84.1.849347.3.579.2.4174 [id number] 2.840.1.199014.3.57[id number] 2.840.1.288573.3.57[id number] 2.840.1.152295.3.57[id number] 2.840.1.360184.3.57[id number] 2.16.840.1.996544.3.579.[id number] 2.16.840.1.762152.3.579.[id number] 2.16.840.1.728632.3.57[id number] 2.16.840.1.956676.3.579.2.1286 [id number] 2.840.3.34709[id number] 2.16840.1.2[id number] 2.0.1.455697.3.579.2.531 [id number] 2.840.1.867574.3.579.2.531 Social History DateTypeDetailFacilityStart: 02-28-2014 End: 55-95-9017Emtlwzx smoking status NHISNever smokerC[place], [place]Start: 34-95-7706Muhemhr intakeCurrent non-drinker of alcohol (finding)[facility]: 37-49-9955Svn Assigned At BirthNot on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
--- OUTSIDE RECORDS SUMMARY | 2025-05-08 15:18 | XMS_ITS | Clinical Summary ---
Author Organization [facility] Address [address], [address] [place] [address] Care Team Providers Care Industrial Engineering Analyst Name Role Phone Edgardo Painting MD Primary Care Provider [phone] No known active allergies Medications MedicationSigDispense QuantityRefillsLast FilledStart DateEnd DateStatus Levothyroxine Sodium (SYNTHROID PO) Take by mouth.Active drospirenone-ethinyl estradiol (BASHIR) 3-0.02 MG per tablet Indications:Irregular menstrual cycleTake 1 tablet by mouth daily for 28 days 28 tablet ctive Social History Tobacco UseTypesPacks/DayYears UsedDateSmoking Tobacco: NeverAlcohol UseStandard Drinks/WeekCommentsNo0 (1 standard drink = 0.6 oz pure alcohol)Comments NoSex and Gender InformationValueDate RecordedSex Assigned at BirthNot on file Legal IwvLuydjy74/10/2013 6:41 PM ESTGender IdentityNot on fileSexual OrientationNot on file Last Filed Vital Signs Vital SignReadingTime TakenCommentsBlood Mzsmnvfr996/7009 2:02 PM EDT Pulse--Temperature--Respiratory Rate--Oxygen Saturation--Inhaled Oxygen Concentration--Wokaof75.3 kg (155 lb)02/28/2014 2:02 PM WYDKylxrf684.6 cm (5' 4 )02/28/2014 2:02 PM EDTBody Mass Index26.6109 2:02 PM EDT Plan of Treatment Not on file Insurance * Guarantor: Landy Devlin AAccount TypeRelation to PatientDate of BirthPhone Billing AddressPersonal/OtrmrrXwrm1995 [facility] [address] [address] Care Teams Team MemberRelationshipSpecialtyStart DateEnd Date Edgardo Painting MD [address] [place] [address] PCP - GeneralFamily Hppibzde94/5/17
--- OUTSIDE RECORDS SUMMARY | 2025-05-08 15:18 | XMS_ITS | Clinical Summary ---
Author Organization [facility] Address [address] [place] [address] Care Team Providers Care Welfare Adviser Name Role Phone Edgardo Painting Primary Care Provider [phone] Social History Tobacco UseTypesPacks/DayYears UsedDateSmoking Tobacco: NeverAlcohol UseStandard Drinks/WeekCommentsNo0 (1 standard drink = 0.6 oz pure alcohol)Comments UnknownSex and Gender InformationValueDate RecordedSex Assigned at BirthNot on fileLegal ImvSlmjgs08/01/2022 4:52 PM EDTGender IdentityNot on fileSexual OrientationNot on file Plan of Treatment Not on file Care Teams Team MemberRelationshipSpecialtyStart DateEnd Date Edgardo Painting [address] [place] [address] PCP - Raktyqw52/5/17
--- OUTSIDE RECORDS SUMMARY | 2025-05-08 15:18 | XMS_ITS | Clinical Summary ---
Author Organization [facility] Address [address] [place] [address] Phone Care Team Providers Care Trade Clerk Name Role Phone Generic Provider, No Assigned Pcp MD Primary Car e Provider Unavailable Allergies Active AllergyReactionsCriticalityNoted DateCommentsCiprofloxacinSwelling,Hives, Rash,MpuwuxyCbn89/16/2014 Medications No known medications Active Problems No known active problems Family History Medical HistoryRelationNameCommentsDiabetesMaternal GrandmotherCancerMother RelationNameStatusCommentsMaternal GrandmotherAliveMotherAlive Social History Tobacco UseTypesPacks/DayYears UsedDateSmoking Tobacco: NeverSmokeless Tobacco: Never Tobacco Cessation:Counseling Given: Not Answered Alcohol UseStandard Drinks/WeekCommentsNot Currently0 (1 standard drink = 0.6 oz pure alcohol)CommentsUnknownSex and Gender InformationValueDate Recorded Sex Assigned at BirthNot on fileLegal CqoTcepym18/26/2024 4:09 AM EDTGender IdentityNot on fileSexual OrientationNot on file Last Filed Vital Signs Vital SignReadingTime TakenCommentsBlood Pressure--Pulse--Temperature-- Respiratory Rate--Oxygen Saturation--Inhaled Oxygen Concentration--Xrimix67.6 kg (160 lb)12/14/2024 1:58 PM YGVMbotka015.6 cm (5' 4 )12/14/2024 1:58 PM EDTBody Mass Index27.46012/14/2024 1:58 PM EDT Plan of Treatment Health MaintenanceDue DateLast DoneCommentsHIV Ukskmmqmw1993Lipid Panel 1993TSH Level1993Yearly Adult Qxykuwwu1993MMR Vaccines (1 of 1 - Standard series)1994Hepatitis C Nowuksuun74/13/2011Hepatitis B Vaccines (1 of 3 - 19+ 3-dose series)2012Cervical Cancer Unqzxwoqy04/13/2014 HPV/Dlasif8705/02/2014Pap Smear2014DTaP/Tdap/Td Vaccines (1 - Tdap) 2015HPV Vaccines (1 - 3-dose standard series)2020Influenza Vaccine (#1)511/01/2021, 04/01/2017, 04/14/2016COVID-19 Vaccine (1 - season)2025Zoster Vaccines (1 of 2)2043HIB VaccinesAged OutNo longer eligible based on patient's age to complete this topicHepatitis A VaccinesAged OutNo longer eligible based on patient's age to complete this topicIPV Vaccines Aged OutNo longer eligible based on patient's age to complete this topic Meningococcal VaccineAged OutNo longer eligible based on patient's age to complete this topicPneumococcal Vaccine: Pediatrics and At-Risk Adult Patients Aged OutNo longer eligible based on patient's age to complete this topic Rotavirus VaccinesAged OutNo longer eligible based on patient's age to complete this topic Insurance Care Teams Team MemberRelationshipSpecialtyStart DateEnd Date Generic Provider, No Assigned Pcp, [place] [address] PCP - GeneralGeneral Practice12/23/24
--- OUTSIDE RECORDS SUMMARY | 2025-05-08 15:18 | XMS_ITS | Clinical Summary ---
Author Organization [facility] Address [address] [place] [address] Care Team Providers Care Chassis Inspector Name Role Phone Randolph Dodson MD Primary Care Provider Encounters DateTypeDepartmentCare RvuwVzanvgvwgrp59/30/2025[facility] [address] [place], [place] [phone] Bhavik Duque RN Display Designer Outside - Other; Bpirwuasaob21/30/2025[facility] [address] [place] [address] Tamy Scott PA-C Pain in left hip (Primary Dx)03/19/2025[facility] [address] [place] [address] Tamy Scott PA-C 03/19/2025[facility] [address] [address] Ayo Corona MD Imaging Review/Appt02/26/2025[facility] [address] [place], [place] [phone] Ayo Corona MD from Last 3 Months Social History Tobacco UseTypesPacks/DayYears UsedDateSmoking Tobacco: Never Assessed CommentsUnknownSex and Gender InformationValueDate RecordedSex Assigned at Not on fileLegal FkkOlsmnd35/02/2012 9:17 AM ESTGender IdentityNot on fileSexual OrientationNot on file Plan of Treatment Not on file Insurance Care Teams Team MemberRelationshipSpecialtyStart DateEnd Date Randolph Dodson MD [address] [place] [address] PCP - General09/30/00
[2025-05-13 11:09] LABS: Age Gdln ACOG Testing Note (.); IGP, Aptima HPV, rfx 16/18,45 Note (.)
== END 2025-05-08 15:12 | disposition home or self-care (01) ==
LOC: LAB 15:11
PROVIDERS: PCP Family Medicine; Visit Provider Physician Assistant
DX: Z01.419 Encounter for gynecological examination (general) (routine) without abnormal findings (principal)
CPT/HCPCS: 87624; 88175

== ENCOUNTER 2025-05-31 16:24 | Outpatient (OUT) | payer OTHER, SELFPAY ==
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
--- OUTSIDE RECORDS SUMMARY | 2025-05-31 16:30 | XMS_ITS | CCD ---
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 distribution width (RBC) [Ratio]16.8 %High10.9 - 14.2 %Remisol HemeHematocrit (Bld) [Volume fraction]34.3 %Krfxai67.0 - 46.0 % Remisol HemeHemoglobin (Bld) [Mass/Vol]11.0 g/dLLow12.0 - 16.0 gm/dLRemisol Heme Lymphocytes (Bld) [#/Vol]2.2 E9/LNormal1.0 - 4.0 E9/LRemisol HemeLymphocytes/100 WBC (Bld)17.9 %Aurkhm35.0 - 50.0 %Remisol HemeMCH (RBC) [Entitic mass]27.5 pg Zkjyqn74.0 - 34.0 pgRemisol HemeMCHC (RBC) [Mass/Vol]32.0 g/cKYtcrxi97.4 - 36.0 gm/dLRemisol HemeMCV (RBC) [Entitic vol]86.0 qQCffygz15.0 - 100.0 fLRemisol Heme Monocytes (Bld) [#/Vol]1.3 E9/LHigh0.2 - 1.0 E9/LRemisol HemeMonocytes/100 WBC (Bld)10.9 %Normal4.0 - 14.0 %Remisol HemeNeutrophils (Bld) [#/Vol]8.7 E9/LHigh 2.0 - 7.5 E9/LRemisol HemeNeutrophils/100 WBC (Bld)70.0 %Lhwcha46.0 - 75.0 % Remisol HemePlatelet mean volume (Bld) [Entitic vol]8.4 fLNormal6.4 - 10.8 fL Remisol HemePlatelets (Bld) [#/Vol]274.0 E9/OSdxkrw273.0 - 500.0 E9/LRemisol HemeRBC (Bld) [#/Vol]4.0 E12/LLow4.3 - 5.9 E12/LRemisol HemeWBC corrected for nucl RBC Auto (Bld) [#/Vol]12.4 E9/LHigh4.0 - 11.0 E9/LRemisol HemeLactic Acidon 02-16-3946Pjgvbz Acid Lvl1.4 mmol/LNormal0.5-2.2[facility] Comment on above:Performed By: #### [id number], [id number], [id number], [id number], [id number] #### [facility] [address] [place], [place] [address]Kchmgezthx 40-83-4786Ldmqovja I.cardiac [Mass/Vol]ng/mLLow 10.10-27.10[facility] HospitalComment on above:Result Comment: The 95% CI (Confidence Interval) PPV (Positive Predictive Value) for myocardial infa rction in females is 38 pg/mL, in males 51 pg/mL. The results should be used in conjunction with clinical conditions of myocardial infarction. (Access High Sensitivity Troponin I Instructions For Use, Jody Bryant, January 2018)Performed By: #### [id number], [id number], [id number], [id number], [id number] #### [facility] [address] [place], [place] [address]rCTGvq 70-65-4841hOPC385 mL/min/1.73 z0Zzgfch>=59[facility] CenterComment on above:Order Comment: Order added by Discern Expert. Performed By: #### [id number], [id number], [id number], [id number], [id number] #### [facility] [address] [place], [place] [address]DV SINGLE QUAD RT UPPERon [id number] SINGLE QUAD RT UPPER EXAM: US SINGLE [...] Electronically authenticated by: ROLANDO MORRIS Date: 2022-08-20 10:40NormUniversity Hospitals Lake West Medical CenterAMYLASEon 11-74-0230Hfslyhe [Catalytic activity/Vol]25 U/L Nuzzyz76-166Ppq [facility] CenterComment on above:Performed By: #### FERR, IRON, B12FOL, VITAD #### [facility] [address] [place] [address] Dr. Mishel Church AUTO DIFFon 02-08-0976HIGM #0.0 103/ulNormal0.0-0.1The [facility] Medical CenterComment on above:Performed By: #### CBC #### [facility] [address] [place] [address] Dr. Mishel ShineBasophils/100 WBC (Bld)0.3 %Normal0.2-2.0[facility] Comment on above:Performed By: #### CBC #### [facility] [address] [address] [address] Mishel Daniel #0.1 103/ulNormal0.0-0.7The [facility] Medical CenterComment on above: Performed By: #### CBC #### [facility] [address] [place] [address] Dr. Mishel Andrewosinophils/100 WBC (Bld)1.4 %Normal0.9-7.0The [facility] Comment on above:Performed By: #### CBC #### [facility] [address] [place] [address] Dr. Mishel Andrewrythrocyte distribution width (RBC) [Ratio]13.5 %Vmltgx42.0-15.0 The [facility] CenterComment on above:Performed By: #### CBC #### [facility] [address] [place] [address] Dr. Mishel ShineHematocrit (Bld) [Volume fraction]36.4 %Blxfbj35.0-48.0The [facility] CenterComment on above:Performed By: #### CBC #### [facility] [address] [place] [address] Dr. Mishel ShineHemoglobin (Bld) [Mass/Vol]12.4 g/gKZmulmm13.0-16.0The [facility] CenterComment on above:Performed By: #### CBC #### [facility] [address] [place] [address] Dr. Mishel Penaloza #0.03 10e3/ulNormal0.00-0.03The [facility] CenterComment on above:Performed By: #### CBC #### [facility] [address] [place] [address] Dr. Mishel Penaloza %0.3 %Normal0.0-0.5The [facility] CenterComment on above: Performed By: #### CBC #### [facility] [address] [place] [address] Dr. Mishel Dickey #0.7 103/ulCritically low1.2-3.8The [facility] Comment on above:Performed By: #### CBC #### [facility] [address] [place] [address] Dr. Mishel Jonesmphocytes/100 WBC (Bld)6.4 %Critically low20.5-60.0The [facility] Hospitalment on above:Performed By: #### CBC #### [facility] [address] [place] [address] Dr. Mishel Cabrera DIFF REQNONormalThe [facility] CenterComment on above: Performed By: #### CBC #### [facility] [address] [place] [address] Dr. Mishel Watts (RBC) [Entitic mass]30.5 crNbnytk34.7-34.0The [facility] CenterComment on above:Performed By: #### CBC #### [facility] [address] [place] [address] Dr. Mishel Watts (RBC) [Mass/Vol]34.1 g/uOOamacm82.9-35.2The [facility] CenterComment on above:Performed By: #### CBC #### [facility] [address] [place] [address] Dr. Mishel WattsV (RBC) [Entitic vol]89.7 cYXbxgns91.0-99.0The [facility] CenterComment on above:Performed By: #### CBC #### [facility] [address] [place] [address] Dr. Mihsel Peter #0.6 103/ulNormal0.3-0.8The [facility] CenterComment on above:Performed By: #### CBC #### [facility] [address] [place] [address] Dr. Mishel Steeleocytes/100 WBC (Bld)6.1 %Normal1.7-12.0[facility] Comment on above:Performed By: #### CBC #### [facility] [address] [place] [address] Dr. Mishel Vazquez #8.8 103/ulCritically high1.4-6.5The [facility] Comment on above:Performed By: #### CBC #### [facility] [address] [address] [address] Mishel Graceutrophils/100 WBC (Bld)85.5 %Critically high43.0-75.0The [facility] CenterComment on above:Performed By: #### CBC #### [facility] [address] [place] [address] Dr. Mishel ShinePlatelet mean volume (Bld) [Entitic vol]10.3 fLNormal9.5-13.5The [facility] CenterComment on above:Performed By: #### CBC #### [facility] [address] [place] [address] Dr. Mishel ShinePLT257 103/cdCmthlz236-609Soj [facility] Hospitalment on above: Performed By: #### CBC #### [facility] [address] [place] [address] Dr. Mishel ShineRBC4.06 106/ulCritically low4.20-5.40The [facility] CenterComment on above:Performed By: #### CBC #### [facility] [address] [place] [address] Dr. Mishel ShineWBC10.2 103/ulNormal4.0-11.0The [facility] CenterComment on above:Performed By: #### CBC #### [facility] [address] [place] [address] Dr. Mishel ShineLIPASEon 17-21-8095Piyiif [Catalytic activity/Vol]28.0 U/L Critically low73.0-393.0The [facility] CenterComment on above:Performed By: #### FERR, IRON, B12FOL, VITAD #### [facility] [address] [place] [address] Dr. Mishel ShinePROIsac 14(COMP METB)on 79-83-2990Luflumc [Mass/Vol]3.6 g/dLNormal 3.4-5.0The [facility] Hospitalment on above:Performed By: #### FERR, IRON, B12FOL, VITAD #### [facility] [address] [place] [address] Dr. Mishel ShineAlbumin/Globulin [Mass ratio]1.1 {ratio}NormalThe [facility] Hospitalment on above:Performed By: #### FERR, IRON, B12FOL, VITAD #### [facility] [address] [place] [address] Dr. Mishel Barton [Catalytic activity/Vol]110 U/CVlieep72-778Ucu [facility] Hospitalment on above:Performed By: #### FERR, IRON, B12FOL, VITAD #### [facility] [address] [place] [address] Dr. Mishel Garcias [Catalytic activity/Vol]35 U/DBouahy82-41Kif [facility] on above:Performed By: #### FERR, IRON, B12FOL, VITAD #### [facility] [address] [place] [address] Dr. Mishel Portillo gap [Moles/Vol]11.6 mmol/LNormalThe [facility] on above:Performed By: #### FERR, IRON, B12FOL, VITAD #### [facility] [address] [place] [address] Dr. Mishel Bower [Catalytic activity/Vol]22 U/CAkuxjb90-07Gjo [facility] on above:Performed By: #### FERR, IRON, B12FOL, VITAD #### [facility] [address] [place] [address] Dr. Mishel ShineBilirubin [Mass/Vol]1.9 mg/dLCritically high0.2-1.0The [facility] on above:Performed By: #### FERR, IRON, B12FOL, VITAD #### [facility] [address] [place] [address] Dr. Mishel ShineCalcium [Mass/Vol]8.3 mg/dLCritically low8.5-10.1The [facility] Hospitalment on above:Performed By: #### FERR, IRON, B12FOL, VITAD #### [facility] [address] [place] [address] Dr. Mishel ShineChloride [Moles/Vol]105 mmol/DBcbfgq55-945LimProm[facility]ica [facility] Comment on above:Performed By: #### FERR, IRON, B12FOL, VITAD #### [facility] [address] [place] [address] Dr. Mishel ShineCO2 [Moles/Vol]25.4 mmol/RIbewqs94.0-32.0The [facility] Comment on above:Performed By: #### FERR, IRON, B12FOL, VITAD #### [facility] [address] [place] [address] Dr. Mishel ShineCreatinine [Mass/Vol]0.52 mg/dLCritically low0.55-1.02[facility] HospitalComment on above:Performed By: #### FERR, IRON, B12FOL, VITAD #### [facility] [address] [place] [address] Dr. Mishel AndrewGFR-AF SOUTH KOREAN>60Normal>=60The [facility] CenterComment on above:Performed By: #### FERR, IRON, B12FOL, VITAD #### [facility] [address] [place] [address] Dr. Mishel AndrewGFR-NON AF SOUTH KOREAN>60Normal>=60[facility] HospitalComment on above:Performed By: #### FERR, IRON, B12FOL, VITAD #### [facility] [address] [place] [address] Dr. Mishel ShineGlobulin (S) [Mass/Vol]3.3 g/dLNormalThe [facility] CenterComment on above:Performed By: #### FERR, IRON, B12FOL, VITAD #### [facility] [address] [place] [address] Dr. Mishel ShineGlucose [Mass/Vol]95 mg/vTQwjopp91-181Csa [facility] Comment on above:Performed By: #### FERR, IRON, B12FOL, VITAD #### [facility] [address] [place] [address] Dr. Mishel ShinePotassium [Moles/Vol]4.0 mmol/LNormal3.5-5.1[facility] Comment on above:Performed By: #### FERR, IRON, B12FOL, VITAD #### [facility] [address] [place] [address] Dr. Mishel ShineProtein [Mass/Vol]6.9 g/dLNormal6.4-8.2[facility] Comment on above:Performed By: #### FERR, IRON, B12FOL, VITAD #### [facility] [address] [place] [address] Dr. Mishel ShineSodium [Moles/Vol]138 mmol/HCfqtjw470-861XsaPromedica Fostoria [facility] Hospital Comment on above:Performed By: #### FERR, IRON, B12FOL, VITAD #### [facility] [address] [place] [address] Dr. Mishel ShineUrea nitrogen [Mass/Vol]10.0 mg/dLNormal7.0-18.0The [facility] CenterComment on above:Performed By: #### FERR, IRON, B12FOL, VITAD #### [facility] [address] [place] [address] Dr. Mishel ShineUrea nitrogen/Creatinine [Mass ratio]19.2 mg/mgNormalThe [facility] CenterComment on above:Performed By: #### FERR, IRON, B12FOL, VITAD #### [facility] [address] [place] [address] Dr. Mishel StevensTIS C ANTIBODYon 44-10-7472Ovi C Virus Ab<0.8Olagfi9.0-0.9 The [facility] CenterComment on above:Result Comment: Negative: < 0.8 Indeterminate: [...] Hepatitis C Virus (HCV) RNA, Diagnosis, WALLY ([id number]) and Hepatitis C Virus (HCV) Antibody with reflex to Quantitative Real-time PCR ([id number]).Performed By: #### FERR, IRON, B12FOL, VITAD #### [facility] [address] [place] [address] Dr. Mishel Fish PROFILEon [id number] [Mass/Vol]3.7 g/dLNormal3.4-5.0 The [facility] Hospitalment on above:Performed By: #### FERR, IRON, B12FOL, VITAD #### [facility] [address] [place] [address] Dr. Mishel ShineAlbumin/Globulin [Mass ratio]1.0 {ratio}NormalThe [facility] on above:Performed By: #### FERR, IRON, B12FOL, VITAD #### [facility] [address] [place] [address] Dr. Mishel Barton [Catalytic activity/Vol]88 U/STzmrug33-086Wqo [facility] CenterComment on above:Performed By: #### FERR, IRON, B12FOL, VITAD #### [facility] [address] [place] [address] Dr. Mishel Garcias [Catalytic activity/Vol]36 U/FSjiyzt33-26Uyx [facility] on above:Performed By: #### FERR, IRON, B12FOL, VITAD #### [facility] [address] [place] [address] Dr. Mishel Bower [Catalytic activity/Vol]30 U/VNkolnd27-99Tjb [facility] on above:Performed By: #### FERR, IRON, B12FOL, VITAD #### [facility] [address] [place] [address] Dr. Mishel Bella, CONJUGATED0.1 mg/dLNormal0.0-0.2[facility] Comment on above:Performed By: #### FERR, IRON, B12FOL, VITAD #### [facility] [address] [place] [address] Dr. Mishel Reyesirubin [Mass/Vol]0.6 mg/dLNormal0.2-1.0[facility] Comment on above:Performed By: #### FERR, IRON, B12FOL, VITAD #### [facility] [address] [place] [address] Dr. Mishel ShineGlobulin (S) [Mass/Vol]3.7 g/dLNormalThe [facility] CenterComment on above:Performed By: #### FERR, IRON, B12FOL, VITAD #### [facility] [address] [place] [address] Dr. Mishel ShineProtein [Mass/Vol]7.4 g/dLNormal6.4-8.2The [facility] Comment on above:Performed By: #### FERR, IRON, B12FOL, VITAD #### [facility] [address] [place] [address] Dr. Mishel ShineINSULINon 72-85-0007Ywidzad1.2 uIU/mLNormal2.6-24.9The [facility] CenterComment on above:Performed By: #### FERR, IRON, B12FOL, VITAD #### [facility] [address] [place] [address] Dr. Mishel Church AUTO DIFFon [id number] #0.0 103/ulNormal0.0-0.1The [facility] CenterComment on above:Performed By: #### FERR, IRON, B12FOL, VITAD #### [facility] [address] [place] [address] Dr. Mishel ShineBasophils/100 WBC (Bld)0.3 %Normal0.2-2.0The [facility] Comment on above:Performed By: #### FERR, IRON, B12FOL, VITAD #### [facility] [address] [place] [address] Dr. Mishel Daniel #0.1 103/ulNormal0.0-0.7The [facility] CenterComment on above: Performed By: #### FERR, IRON, B12FOL, VITAD #### [facility] [address] [place] [address] Dr. Mishel Andrewosinophils/100 WBC (Bld)1.1 %Normal0.9-7.0[facility] Comment on above:Performed By: #### FERR, IRON, B12FOL, VITAD #### [facility] [address] [place] [address] Dr. Mishel Andrewrythrocyte distribution width (RBC) [Ratio]13.2 %Oujwev32.0-15.0 The [facility] CenterComment on above:Performed By: #### FERR, IRON, B12FOL, VITAD #### [facility] [address] [place] [address] Dr. Mishel ShineHematocrit (Bld) [Volume fraction]34.7 %Critically low36.0-48.0 The [facility] CenterComment on above:Performed By: #### FERR, IRON, B12FOL, VITAD #### [facility] [address] [place] [address] Dr. Mishel ShineHemoglobin (Bld) [Mass/Vol]12.0 g/xQHlenfp93.0-16.0The [facility] CenterComment on above:Performed By: #### FERR, IRON, B12FOL, VITAD #### [facility] [address] [place] [address] Dr. Mishel Penaloza #0.04 10e3/ulCritically high0.00-0.03The [facility] Comment on above:Performed By: #### FERR, IRON, B12FOL, VITAD #### [facility] [address] [place] [address] Dr. Mishel Penaloza %0.4 %Normal0.0-0.5The [facility] CenterComment on above: Performed By: #### FERR, IRON, B12FOL, VITAD #### [facility] [address] [place] [address] Dr. Mishel Dickey #2.4 103/ulNormal1.2-3.8The [facility] CenterComment on above:Performed By: #### FERR, IRON, B12FOL, VITAD #### [facility] [address] [place] [address] Dr. Yilan ChangLymphocytes/100 WBC (Bld)26.3 %Ackxdi19.5-60.0The [facility] CenterComment on above:Performed By: #### FERR, IRON, B12FOL, VITAD #### [facility] [address] [place] [address] Dr. Mishel Cabrera DIFF REQNONormalThe [facility] CenterComment on above: Performed By: #### FERR, IRON, B12FOL, VITAD #### [facility] [address] [place] [address] Dr. Mishel Watts (RBC) [Entitic mass]29.9 ebQyxciw24.7-34.0The [facility] CenterComment on above:Performed By: #### FERR, IRON, B12FOL, VITAD #### [facility] [address] [place] [address] Dr. Mishel Watts (RBC) [Mass/Vol]34.6 g/oDYgmhoe08.9-35.2The [facility] CenterComment on above:Performed By: #### FERR, IRON, B12FOL, VITAD #### [facility] [address] [place] [address] Dr. Mishel Watts (RBC) [Entitic vol]86.5 jYWyrozd79.0-99.0The [facility] Hospitalment on above:Performed By: #### FERR, IRON, B12FOL, VITAD #### [facility] [address] [place] [address] Dr. Mishel Peter #0.7 103/ulNormal0.3-0.8The [facility] Hospitalment on above:Performed By: #### FERR, IRON, B12FOL, VITAD #### [facility] [address] [place] [address] Dr. Mishel Steeleocytes/100 WBC (Bld)7.9 %Normal1.7-12.0The [facility] Comment on above:Performed By: #### FERR, IRON, B12FOL, VITAD #### [facility] [address] [place] [address] Dr. Mishel Vazquez #5.9 103/ulNormal1.4-6.5The [facility] Hospitalment on above:Performed By: #### FERR, IRON, B12FOL, VITAD #### [facility] [address] [place] [address] Dr. Mishel Graceutrophils/100 WBC (Bld)64.0 %Hufrrv86.0-75.0The [facility] on above:Performed By: #### FERR, IRON, B12FOL, VITAD #### [facility] [address] [place] [address] Dr. Mishel ShinePlatelet mean volume (Bld) [Entitic vol]10.2 fLNormal9.5-13.5The [facility] on above:Performed By: #### FERR, IRON, B12FOL, VITAD #### [facility] [address] [place] [address] Dr. Mishel ShinePLT280 103/xvZvzdfc750-576Xyg [facility] on above: Performed By: #### FERR, IRON, B12FOL, VITAD #### [facility] [address] [place] [address] Dr. Mishel ShineRBC4.01 106/ulCritically low4.20-5.40The [facility] on above:Performed By: #### FERR, IRON, B12FOL, VITAD #### [facility] [address] [place] [address] Dr. Mishel ShineWBC9.3 103/ulNormal4.0-11.0The [facility] on above: Performed By: #### FERR, IRON, B12FOL, VITAD #### [facility] [address] [place] [address] Dr. Mishel PrajapatiRICarlos Eduardo 28-97-7325Cpvyyzhi [Mass/Vol]51.0 ng/mLNormal6.2-137.0 The [facility] Hospitalment on above:Performed By: #### FERR, IRON, B12FOL, VITAD #### [facility] [address] [address] [address] Mishel Wisdom THYROXINE INDEX T7on 64-51-5872FCC7.59Lcimuv8.30-4.50[facility] on above:Performed By: #### TSH, CMP, T7, LIPID #### [facility] [address] [place] [address] Dr. Mishel ShineT3U37.0 %Tckrpd32.0-39.0The [facility] CenterComment on above: Performed By: #### TSH, CMP, T7, LIPID #### [facility] [address] [place] [address] Dr. Mishel ShineT4 [Mass/Vol]7.90 ug/dLNormal4.80-13.90The [facility] Comment on above:Performed By: #### TSH, CMP, T7, LIPID #### [facility] [address] [place] [address] Dr. Mishel ShineGLYCOHEMOGLOBIN A1Con 03-77-9342LYI RECOMMENDATIONSEE BELOWNormal The [facility] CenterComment on above:Result Comment: ADA RECOMMENDED LIMIT 4.0 - 6.0 ADA THERAPEUTIC TARGET < 7.0 ACTION SUGGESTED > 7.0Performed By: #### FERR, IRON, B12FOL, VITAD #### [facility] [address] [place] [address] Dr. Mishel ShineGlucose [Mass/Vol]108 mg/dLNormalThe [facility] on above:Performed By: #### FERR, IRON, B12FOL, VITAD #### [facility] [address] [place] [address] Dr. Mishel ShineHbA1c (Bld) [Mass fraction]5.4 %Normal4.5-6.2[facility] on above:Performed By: #### FERR, IRON, B12FOL, VITAD #### [facility] [address] [place] [address] Dr. Mishel Ball 90-15-6223Deto [Mass/Vol]172.0 ug/dLCritically high 50.0-170.0The [facility] HospitalComment on above:Performed By: #### FERR, IRON, B12FOL, VITAD #### [facility] [address] [address] [address] Mishel JaraID PROFILEon 69-50-9989EBHN-HDL RATIO NORMSCommunity Regional Medical CenterComhavenwyck hospital on above:Result Comment: 3.3 - 4.4 LOW RISK 4.4 - 7.1 AVERAGE RISK 7.1 - 11.0 MODERATE RISK >11.0 HIGH RISKPerformed By: #### TSH, CMP, T7, LIPID #### [facility] [address] [address] [address] Mishel ShineCholesterol [Mass/Vol]156 mg/dLNormal<=200[facility] Comment on above:Performed By: #### TSH, CMP, T7, LIPID #### [facility] [address] [address] [address] Mishel Silvaesterol in HDL [Mass/Vol]61 mg/dLCritically tdji31-62XqyPromedica Fostoria Community HospitalComment on above:Performed By: #### TSH, CMP, T7, LIPID #### [facility] [address] [address] [address] Mishel Silvaesterol in LDL [Mass/Vol]84.4 mg/dLNoOhioHealth Marion General HospitalComhavenwyck hospital on above:Performed By: #### TSH, CMP, T7, LIPID #### [facility] [address] [address] [address] Mishel Silvaesteromer.total/Cholesterol in HDL [Mass ratio]2.6 {ratio} NormalPromedica Fostoria Community HospitalComhavenwyck hospital on above:Performed By: #### TSH, CMP, T7, LIPID #### [facility] [address] [address] [address] Mishel Ziegler NORMAL> or = 60 mg/dl - LOW CARDIOVASCULAR RISK <40 mg/dl - HIGH CARDIOVASCULAR RISKNoOhioHealth Marion General HospitalComhavenwyck hospital on above:Performed By: #### TSH, CMP, T7, LIPID #### [facility] [address] [address] [address] Mishel ShineLDL CALC NORMALSEE BELOWNoOhioHealth Marion General HospitalComment on above:Result Comment: <100 mg/dl OPTIMAL 100 - 129 mg/dl NEAR OR ABOVE OPTIMAL 130 - 159 mg/dl BORDERLINE HIGH 160 - 189 mg/dl HIGH >190 mg/dl VERY HIGH Performed By: #### TSH, CMP, T7, LIPID #### [facility] [address] [place] [address] Dr. Mishel ShineTriglyceride [Mass/Vol]53 mg/dLNormal<=150The [facility] Comment on above:Performed By: #### TSH, CMP, T7, LIPID #### [facility] [address] [place] [address] Dr. Mishel ShineVLDL CALC10.6 mg/dLNoOhioHealth Marion General HospitalComment on above: Performed By: #### TSH, CMP, T7, LIPID #### [facility] [address] [place] [address] Dr. Mishel ShinePROF 14(COMP METB)on 55-58-4858Ejpkqkv [Mass/Vol]3.7 g/dLNormal 3.4-5.0The [facility] CenterComment on above:Performed By: #### TSH, CMP, T7, LIPID #### [facility] [address] [place] [address] Dr. Mishel ShineAlbumin/Globulin [Mass ratio]1.0 {ratio}NormalThe [facility] CenterComment on above:Performed By: #### TSH, CMP, T7, LIPID #### [facility] [address] [place] [address] Dr. Mishel Barton [Catalytic activity/Vol]108 U/BKoifuh41-921Rew [facility] CenterComment on above:Performed By: #### TSH, CMP, T7, LIPID #### [facility] [address] [place] [address] Dr. Mishel Garcias [Catalytic activity/Vol]26 U/EKjfxvh94-77Vau [facility] CenterComment on above:Performed By: #### TSH, CMP, T7, LIPID #### [facility] [address] [place] [address] Dr. Mishle Lopezon gap [Moles/Vol]13.1 mmol/LNormalPromedica [facility] Comment on above:Performed By: #### TSH, CMP, T7, LIPID #### [facility] [address] [address] [address] Mishel ShineAST [Catalytic activity/Vol]21 U/WJkjdgp65-91Nbw [facility] CenterComment on above:Performed By: #### TSH, CMP, T7, LIPID #### [facility] [address] [address] [address] Mishel ShineBilirubin [Mass/Vol]1.6 mg/dLCritically high0.2-1.0The [facility] CenterComment on above:Performed By: #### TSH, CMP, T7, LIPID #### [facility] [address] [place] [address] Dr. Mishel ShineCalcium [Mass/Vol]9.0 mg/dLNormal8.5-10.1[facility] Comment on above:Performed By: #### TSH, CMP, T7, LIPID #### [facility] [address] [place] [address] Dr. Mishel ShineChloride [Moles/Vol]103 mmol/MRwijzb31-166VktPromedica Fostoria Community Hospital Comment on above:Performed By: #### TSH, CMP, T7, LIPID #### [facility] [address] [place] [address] Dr. Mishel ShineCO2 [Moles/Vol]26.6 mmol/MGcavlk62.0-32.0[facility] Comment on above:Performed By: #### TSH, CMP, T7, LIPID #### [facility] [address] [place] [address] Dr. Mishel ShineCreatinine [Mass/Vol]0.54 mg/dLCritically low0.55-1.02The [facility] CenterComment on above:Performed By: #### TSH, CMP, T7, LIPID #### [facility] [address] [place] [address] Dr. Florentino ChangEGFR-AF SOUTH KOREAN>60Normal>=60The [facility] CenterComment on above:Performed By: #### TSH, CMP, T7, LIPID #### [facility] [address] [address] [address] Mishel Cano-NON AF SOUTH [place]OREAN>60Normal>=60The [facility] CenterComment on above:Performed By: #### TSH, CMP, T7, LIPID #### [facility] [address] [address] [address] Mishel ShineGlobulin (S) [Mass/Vol]3.7 g/dLNormalThe [facility] CenterComment on above:Performed By: #### TSH, CMP, T7, LIPID #### [facility] [address] [place] [address] Dr. Mishel ShineGlucose [Mass/Vol]90 mg/yNDydgby63-511PxdPromedica Fostoria [facility] Hospital Comment on above:Performed By: #### TSH, CMP, T7, LIPID #### [facility] [address] [place] [address] Dr. Mishel ShinePotassium [Moles/Vol]3.7 mmol/LNormal3.5-5.1The [facility] Comment on above:Performed By: #### TSH, CMP, T7, LIPID #### [facility] [address] [place] [address] Dr. Mishel ShineProtein [Mass/Vol]7.4 g/dLNormal6.4-8.2[facility] Comment on above:Performed By: #### TSH, CMP, T7, LIPID #### [facility] [address] [place] [address] Dr. Mishel ShineSodium [Moles/Vol]139 mmol/QOpaimo628-353HrsPromedica Fostoria [facility] Hospital Comment on above:Performed By: #### TSH, CMP, T7, LIPID #### [facility] [address] [place] [address] Dr. Mishel ShineUrea nitrogen [Mass/Vol]12.0 mg/dLNormal7.0-18.0The [facility] CenterComment on above:Performed By: #### TSH, CMP, T7, LIPID #### [facility] [address] [place] [address] Dr. Mishel Darby nitrogen/Creatinine [Mass ratio]22.2 mg/mgNoOhioHealth Marion General HospitalComhavenwyck hospital on above:Performed By: #### TSH, CMP, T7, LIPID #### [facility] [address] [place] [address] Dr. Mishel Koroma 47-25-4491KJE4.484 uIU/mLNormal0.358-3.740[facility] on above:Performed By: #### TSH, CMP, T7, LIPID #### [facility] [address] [place] [address] Dr. Mishel Milligan B12 AND FOLATEon 99-73-2834Ytbzyycrn (Vitamin B12) [Mass/Vol] 404.0 pg/fRCnjvax427.0-986.0[facility] on above:Performed By: #### FERR, IRON, B12FOL, VITAD #### [facility] [address] [place] [address] Dr. Mishel ShineFOLATE15.00 ng/mLNormal8.60-58.90[facility] on above:Performed By: #### FERR, IRON, B12FOL, VITAD #### [facility] [address] [place] [address] Dr. Mishel ShineVITAMIN D 25 OHon 77-35-3637DJL D 25-OH32.0 ng/mLNormalThe [facility] on above:Performed By: #### FERR, IRON, B12FOL, VITAD #### [facility] [address] [place] [address] Dr. Mishel ACOSTA BELOWCleveland Clinic Children's Hospital for RehabilitationComhavenwyck hospital on above: Result Comment: <20 ng/mL Vit D deficient 20 - <30 ng/mL Vit D insufficient 30 - 100 ng/mL Vit D sufficient >100 ng/mL Potential ToxicityPerformed By: #### FERR, IRON, B12FOL, VITAD #### [facility] [address] [place] [address] Dr. Mishel George-19 PCR (CVDTB)on 76-20-3249FSYL-CoV-2 (COVID-19) RNA WALLY+probe Ql (Unsp spec)Not detectedNormalNOT DETECTEDThe [facility] Comment on above:Result Comment: This test is not yet approved or cleared by the [place] FDA. When there are no FDA-approved or cleared tests available, and other criteria are met, FDA can make tests available under an emergency access mechanism called an Emergency Use Authorization (EUA). The EUA for this test is supported by the [facility] Coordinator of Health and Human Service's (HHS's) declaration [...] By: #### FERR, IRON, B12FOL, VITAD #### [facility] [address] [place] [address] Dr. Mishel Hernández A AND B AGon 79-50-8400KJOVSJDQGZOVTOhioHealth Pickerington Methodist Hospital on above:Result Comment: Negative for Flu A protein angiten. Infection due to Flu A cannot be ruled out. FluA angiten in the sample may be below the detection limit of the test.Performed By: #### FERR, IRON, B12FOL, VITAD #### [facility] [address] [place] [address] Dr. Mishel MéndezNEGJAELYN [facility] on above: Result Comment: Negative for Flu B protein antigen. Infection due to Flu B cannot be ruled out. FluB antigen in the sample may be below the detection limit of the test.Performed By: #### FERR, IRON, B12FOL, VITAD #### [facility] [address] [place] [address] Dr. Mishel Starr AGNegativeNormalNEGATIVE SEE COMMENTThe [facility] CenterComment on above:Performed By: #### FERR, IRON, B12FOL, VITAD #### [facility] [address] [place], [place] [address] Dr. Mishel Hayes AGNegativeNormalNEGATIVE SEE COMMENTThe [facility] CenterComment on above:Performed By: #### FERR, IRON, B12FOL, VITAD #### [facility] [address] [place], [place] [address] Dr. Mishel García, HIGH SENSITIVITYon 63-10-0012SIICIL<4.7Xfxmsw3.0-51.3 The [facility] CenterComment on above:Result Comment: CUT-OFF POINTS HAVE BEEN ESTABLISHED BASED ON THE FOURTH UNIVERSAL DEFINITIONS OF MYOCARDIAL INFARCTION. THE UPPER REFERENCE LIMIT (URL) OF TROPONIN, DEFINED THE 99TH PERCENTILE OF cTnI DISTRIBUTION IN A REFERENCE POPULATION, HAS BEEN CONFIRMED THE DECISION THRESHOLD FOR MD DIAGNOSIS.Performed By: #### FERR, IRON, B12FOL, VITAD #### [facility] [address] [place] [address] [address] [address] Mishel ShineXR CHEST 1 Von 62-25-5272JT CHEST 1 VEXAMINATION: XR CHEST 1 V HISTORY: Cough COMPARISON: None. TECHNIQUE: Portable chest FINDINGS: The lung parenchyma is free of consolidation or infiltrate. No pneumothorax or pleural effusion. The cardiac, mediastinal and hilar contours are normal. The visualized osseous structures exhibit no gross abnormality. IMPRESSION: Normal chest x-ray Electronically authenticated by: ROLANDO ANSARI Date: 2022-06-20 21:08NoOhioHealth Marion General HospitalQuantiFERON TBon 05-21-8814Xowdgk Jovanny minus NIL9.61 IU/mLNormal [facility] CenterComment on above:Performed By: #### AQF #### [facility] [address] [place] [address] Program Planner: Anthony Rush TB Gold PlusNegativeNormalUpper Valley Medical CenterComment on above:Result Comment: (NOTE) Interpretive Data: Quantiferon [...] Mycobacterium tuberculosis Infection --- [place], 2010 (http://www.cdc.gov/mmwr/preview/mmwrhtml/qs6104o4.htm), for more information concerning test performance in low-prevalence populations and use in occupational screening.Performed By: #### AQF #### [facility] [address] [place] [address] Program Planner: Anthony Rush TB1 minus NIL0.06 IU/mLNormal0.00-0.34 [facility] CenterComment on above:Performed By: #### AQF #### [facility] [address] [place], [place] [id number] Program Planner: Anthony Rush TB2 minus NIL0.10 IU/mLNormal0.00-0.34 [facility] CenterComment on above:Performed By: #### AQF #### [facility] [address] [place] [address] Program Planner: Coretta RushON NIL0.06 IU/mLNormalUpper Valley Medical CenterComment on above:Result Comment: (NOTE) Performed by [facility], [address] [place], [place] [id number] www.[employer], Kemal Lainez MD, Lab. DirectorPerformed By: #### AQF #### [facility] [address] [place] [address] Program Planner: Antelmo Rush IgG-[facility] 86-68-1293Lfyuflf (Rubeola) IgG Ab-[place] [facility] Health SystemComment on above:Result Comment: Results suggest response to immunization orprior exposure to the virus. REFERENCE VALUE Vaccinated: Positive (>=1.1 AI)Unvaccinated: Negative (<=0.8 AI)Performed By: #### [id number] ####[facility] EZEPKVXMETNL[address] [place], [place] [address]Kwezgvg IgG Ab Index-[place]3.2NSt. Mary's Medical Center, Ironton CampusComment on above:Result Comment: Test Performed by:[facility] - [address] [address]Traphrzdo By: #### CD:[id number] ####[facility] PQZOHFIWCZRK[address] [place], [place] [address]SK IgG-[facility] 11-43-1591Flwegbpxc IgG Antibody Index-[place]2.7[facility] HospitalComment on above:Result Comment: Test Performed by:[facility] - [address] [address]Kmiidhgdm By: #### VZPG ####[facility] TNNHAEUOALRR[address] [place], [place] [address]Faeporoyt-Gjrkbn IgG Antibody-[facility] HealthComment on above:Result Comment: Results suggest response to immunization orprior exposure to the virus. ------REFERENCE VALUE Vaccinated: Positive (>=1.1 AI)Unvaccinated: Negative (<=0.8 AI)Performed By: #### VZPG ####[address] [address]Llu Bs Abon 03-21-2018 Hep B Surface Antibody InterpPositiveNormMercy Health Clermont HospitalComment on above:Result Comment: Patient is considered to be immune to infection with HBV.Performed By: #### HBSAB ####[address] [address]Dlyekec IgGon 76-46-0927Yvuxqqj IgG Ab InterpReactive [facility] HospitalComment on above:Result Comment: The presence of detectable IgG-class antibodies indicates immunity to the rubella vi linda through prior immunization or exposure. Individuals testing reactive (positive) are considered immune to rubella infection.This result was obtained with the Access Rubella IgG EIA. Despite calibration by means of a reference preparation, values obtained with different medical assistant's assay methods may not be used interchangeably. The magnitude of the reported IgG level CANNOT be correlated to an endpoint titer.Performed By: #### RUB ####[address] [address] Vital Signs Date TimeVital SignValuePerforming YbtioafmiGiyoylcg50-10-8387 18:17-0400Body .56 cmYahir Feng MD Work Phone: [facility]10-20-2025 18:17-0400 Body xmuqwxjmdbl40.9 [degF]Yahir Feng MD Work Phone: [phone]10-20-2025 18:17-0400 Body uvfcgl89.2 kgYahir Feng MD Work Phone: [phone]10-20-2025 18:17-0400 Diastolic blood rrfnvgae43 mm[Hg]Yahir Feng MD Work Phone: [phone]10-20-2025 18:17-0400 Heart sgwg085 /Danial Feng MD Work Phone: [phone]10-20-2025 18:17-0400 Respiratory rate18 /Danial Feng MD Work Phone: [facility]10-20-2025 18:17-0400 SaO2% (BldA) [Mass fraction]99 %Yahir Feng MD Work Phone: [facility]10-20-2025 18:17-0400 Systolic blood altycqyx183 mm[Hg]Yahir Feng MD Work Phone: [facility]10-15-2025 10:52-0400 Body exocct517.6 cmNatalie Mullins DATASTAGE CONSULTANT-SQL PROGRAMMER Work Phone: [phone]10-15-2025 10:52-0400Body mass index (BMI) [Ratio]28.08 kg/b3Gtryivi Mullins DATASTAGE CONSULTANT-SQL PROGRAMMER Work Phone: [phone]10-15-2025 10:52-0400Body sroose93.25 kgNatalie Mullins DATASTAGE CONSULTANT-SQL PROGRAMMER Work Phone: [phone]10-15-2025 10:52-0400Diastolic blood lsaaloof46 mm[Hg]Grecia Mullins DATASTAGE CONSULTANT-SQL PROGRAMMER Work Phone: [phone]10-15-2025 10:52-0400Heart rate 96 /minNatalie Mullins DATASTAGE CONSULTANT-SQL PROGRAMMER Work Phone: [phone] [place], [place] [address]10-15-2025 10:52-0400Systolic blood ogjsdtfe377 mm[Hg]Grecia Mullins DATASTAGE CONSULTANT-SQL PROGRAMMER Work Phone: [phone] [place], [place] [address]10-14-2025 09:30-0400Body vmzzhy254.56 cmYahir Feng MD Work Phone: [facility]10-14-2025 09:30-0400 Body zwtfbbenjgd10.8 [degF]Yahir Feng MD Work Phone: [facility]10-14-2025 09:30-0400 Body wpgyqj72.84 kgYahir Feng MD Work Phone: [facility]10-14-2025 09:30-0400 Diastolic blood ynwasjxf65 mm[Hg]Yahir Feng MD Work Phone: [phone] [place], [place] [address]10-14-2025 09:30-0400 Heart rate91 /Danial Feng MD Work Phone: [phone] [place], [place] [address]10-14-2025 09:30-0400 Respiratory rate16 /Danial Feng MD Work Phone: [phone] [place], [place] [address]10-14-2025 09:30-0400 SaO2% (BldA) [Mass fraction]100 %Yahir Feng MD Work Phone: [phone] [place], [place] [address]10-14-2025 09:30-0400 Systolic blood lcvaiako843 mm[Hg]Yahir Feng MD Work Phone: [phone] [place], [place] [address]10-06-2025 16:16-0400 Body uezwqy152.56 cmYahir Feng MD Work Phone: [phone] [place], [place] [address]10-06-2025 16:16-0400 Body mass index (BMI) [Ratio]28.5 kg/z2KacuyhbYahir Feng MD Work Phone: [phone] [place], [place] [address]10-06-2025 16:16-0400 Body kxouxc64.29 kgYahir Feng MD Work Phone: [phone] [place], [place] [address]10-06-2025 16:16-0400 Diastolic blood ezahwokp76 mm[Hg]Yahir Feng MD Work Phone: [phone] [place], [place] [address]10-06-2025 16:16-0400 Heart rate96 /Danial Feng MD Work Phone: [phone] [place], [place] [address]50710-06-2025 16:16-0400 Systolic blood cnlymhas573 mm[Hg]Yahir Feng MD Work Phone: [phone] [place], [place] 25[address]707-14-2025 12:52-0400 Body bebmfm707.6 cmJass Silva MD Work Phone: [phone] [place], [place] 63[address]307-14-2025 12:52-0400Body mass index (BMI) [Ratio]28.03 kg/k1KunpuxakcJass Silva MD Work Phone: [phone] [place], [place] 63[address]307-14-2025 12:52-0400Body pzijnu18.07 kgJass Silva MD Work Phone: [phone] [place], [place] [address]307-14-2025 12:52-0400Diastolic blood jisovzzc43 mm[Hg]Jass Silva MD Work Phone: [phone] [place], [place] [address]307-14-2025 12:52-0400Heart rate 72 /minJass Silva MD Work Phone: [phone] [place], [place] [address]307-14-2025 12:52-0400Systolic blood kgppaesu290 mm[Hg]Jass Silva MD Work Phone: [phone] [place], [place] [address]306-27-2025 13:58-0400Body irggif236.6 cmKayode Billy MD Work Phone: [facility] [place] [facility]06-27-2025 13:58-0400 Body mass index (BMI) [Ratio]27.46 kg/c1ApcqoKayode Billy MD Work Phone: [facility] [place] [facility]06-27-2025 13:58-0400 Body lahkwp72.58 kgKayode Billy MD Work Phone: [phone]-[facility] [place] [facility]04-02-2025 16:09-0400 Body etehux078.6 Adam Rodriguez DIRECTOR SEARCH Work Phone: [facility] CenterKmnbaufxzd37-66-5809 16:09-0400Body mass index (BMI) [Ratio]28.67 kg/a9AfbjvbSerenity Rodriguez DIRECTOR SEARCH Work Phone: [facility] CenterGfzalnjpit81-50-3852 16:09-0400Body .75 kgSerenity Rodriguez DIRECTOR SEARCH Work Phone: [facility] CenterElfbhzhgbq75-90-6299 16:09-0400Diastolic blood hctcfwut70 mm[Hg]Serenity Rodriguez DIRECTOR SEARCH Work Phone: noSt. [facility] Medical CenterZfcjfenoqb78-22-5376 16:09-0400Heart rate84 /min Serenity Rodriguez DIRECTOR SEARCH Work Phone: noSt. [facility] CenterBykvttjfap43-65-8175 16:09-0400Systolic blood bgutsvkj492 mm[Hg]Serenity Rodriguez DIRECTOR SEARCH Work Phone: noSt. Joseph Medical CenterVhciypuehs48-03-9705 12:14-0500Body mass index (BMI) [Ratio]27.98 kg/d1Parnhimaria guadalupe Durham DIRECTOR SEARCH Work Phone: [facility] CenterXnoudjjxlg26-24-6768 12:14-0500Body temperature 97.59 [degF]Chuck Durham DIRECTOR SEARCH Work Phone: [facility] CenterErqgpdshau21-97-0762 12:14-0500Body ssaiek65.94 kgRamaria guadalupe Durham DIRECTOR SEARCH Work Phone: [facility] CenterUhhdeogruz01-02-8509 12:14-0500Diastolic blood cwukowhm69 mm[Hg]Chuck Durham DIRECTOR SEARCH Work Phone: [facility] CenterIjwmokjlqq10-35-3954 12:14-0500Heart rate91 /min Chuck Durham DIRECTOR SEARCH Work Phone: [facility] CenterMxhwvcqaut73-24-7331 12:14-5981GdY8% (BldA) [Mass fraction]99 %Chuck Durham DIRECTOR SEARCH Work Phone: [facility] CenterWsrcifxjth84-72-2256 12:14-0500Systolic blood vqltkolc770 mm[Hg]Chuck Durham DIRECTOR SEARCH Work Phone: [facility] CenterYrxppaylbz44-84-7483 15:24-0400Body .6 cmFeneiltanna Gibbs DIRECTOR SEARCH Work Phone: noSt. Joseph Medical CenterCnoblynxfq62-39-0280 15:24-0400Body mass index (BMI) [Ratio]27.98 kg/e6Vmyoushglenn Watsongel DIRECTOR SEARCH Work Phone: noSt. Joseph Medical CenterCvilthasdv76-67-1784 15:24-0400Body xtmzge05.94 kgFelicia Windnagel DIRECTOR SEARCH Work Phone: [facility] CenterEwgncdbvqt21-85-1692 15:24-0400Diastolic blood wwakwtho82 mm[Hg]Alta Watsongel DIRECTOR SEARCH Work Phone: [facility] CenterDzjzamkyut69-09-0622 15:24-0400Heart rate83 /min Alta Arteaganagel DIRECTOR SEARCH Work Phone: [facility] CenterYlymxqwvqo80-70-1981 15:24-0400Systolic blood nwxxspih974 mm[Hg]Alta Watsongel DIRECTOR SEARCH Work Phone: [facility] CenterGshricjlzo32-60-2481 15:29-0400Body .6 cmFeglenn Watsongel DIRECTOR SEARCH Work Phone: [facility] CenterCcadhkjcym95-32-3054 15:29-0400Body mass index (BMI) [Ratio]27.12 kg/d3Whrpdffglenn Watsongel DIRECTOR SEARCH Work Phone: [facility] CenterCccmkbyjef86-95-7735 15:29-0400Body .67 kgFeglenn Gibbs DIRECTOR SEARCH Work Phone: [facility] CenterUisrwkxirj24-61-5415 15:29-0400Diastolic blood qbzosdxs33 mm[Hg]Alta Watsongel DIRECTOR SEARCH Work Phone: [facility] CenterIrqoasvexz04-30-9011 15:29-0400Heart rate79 /min Alta Watsongel DIRECTOR SEARCH Work Phone: [facility] CenterPbfvytiehs67-86-8197 15:29-0400Systolic blood jvaabvqe468 mm[Hg]Alta Jenninagel DIRECTOR SEARCH Work Phone: [facility] CenterOkpqtrrkvb66-43-9639 20:30-0400Diastolic blood wsiylzph96 mm[Hg]Al Vivian [facility]05-05-2024 20:30-0400Heart tcpx146 /minNoah Vivian [facility]05-05-2024 20:30-0400Mean blood yiqkffqw635 mm[Hg]Al Vivian [address]05-05-2024 20:30-2231KaX6% (BldA) [Mass fraction]99 %Al Vivian [address] [place], [place] 4340205-05-2024 20:30-0400 Systolic blood vcflcuho423 mm[Hg]Al Vivian [address] [place], [place] 5455405-05-2024 20:05-0400 Diastolic blood oywvsccp65 mm[Hg]Al Vivian [address] [place], [place] 5455405-05-2024 20:05-0400Heart ekjw647 /minNoah Vivian [address] [place], [place] [address]Comment on above:Result Comment: Pt crying at this point and visibly upset about the circumstances. 10-23-2023 20:05-0400Mean blood epysidgz830 mm[Hg]Al Vivian [address] [place], [place] 5455405-05-2024 20:05-8081KdW6% (BldA) [Mass fraction]98 %Al Vivian [address] [place], [place] 5455405-05-2024 20:05-0400 Systolic blood tselyiud359 mm[Hg]Al Vivian [address] [place], [place] 5455405-05-2024 19:59-0400Body siwfkjsnafw19.24 [degF]Al Vivian [address] [place], [place] 4340205-05-2024 19:59-0400 Diastolic blood zqifhyru84 mm[Hg]Al Vivian [address] [place], [place] 5455405-05-2024 19:59-0400Heart epca842 /minNoah Vivian [address] [place], [place] 5455405-05-2024 19:59-0400 Respiratory rate18 /minNoah Vivian [facility]05-05-2024 19:59-9127OrI7% (BldA) [Mass fraction]99 %Al Vivian [facility]05-05-2024 19:59-0400 Systolic blood mm[Hg]Al Vivian [address] [place], [place] 4340205-05-2024 19:44-0400Body dvzzpdlarex25.24 [degF]Al Barillasner [facility]05-05-2024 19:44-0400Heart chzd518 /minAl Vivian [facility]05-05-2024 19:44-0400 Respiratory rate18 /minAl Vivian [facility]04-24-2023 17:40-0400Body aohmgj510.56 cmPamelmatty Dupree Other [facility] [employer] Other 04-24-2023 17:40-0400Body mass index (BMI) [Ratio] 28.22 kg/m2IjyfcbMariposa Dupree Other [facility] [employer] Other 04-24-2023 17:40-0400Body aqgqusvnzud92.7 [degF]Mariposa [facility]emond Other [facility] Other 04-24-2023 17:40-0400Body yfrneo70.57 kgMariposa Dupree Other [facility] Other 04-24-2023 17:40-0400Diastolic blood bzgtasbe07 mm[Hg] Mariposa Okeefemond Other [facility] Other 04-24-2023 17:40-0400Respiratory rate18 /Giancarlo Dupree Other [facility] [employer] Other 04-24-2023 17:40-9627YrU2% (BldA) [Mass fraction]100 % Mariposa Dupree Other [facility] [employer] Other 04-24-2023 17:40-0400Systolic blood mm[Hg] Mariposa Dupree Other [facility] Other 10-02-2018 21:42-0400Body surface area Derived from cmmxrah028.0 mIU/mLLAWRENCE [facility] HospitalComment on above: Performed By: #### HBSAB ####[place] [address] Encounters Encounter DateEncounter TypeCare ProviderFacilityStart: 14-98-0883mkhpfxcqxocayetano JesusFacility:[facility] Hospitaltart: 04-08-2025 End: 05-81-0556Txqttjice department patient visitYahir Feng MD Work Phone: [phone]-Kjnjmecvf Room Work Phone: Start: 04-03-2025 End: 38-59-7186Buijyg outpatient visit Jerry Castro DATASTAGE CONSULTANT-SQL PROGRAMMER Work Phone: [facility], A Department of [facility] DaytonComment on above:Acquired hypothyroidism (Primary Dx) Start: 04-03-2025 End: 14-32-7626fnfqbempazJCFEPDS R MARIENTHALBellevue Hospitaltart: 04-02-2025 End: 70-51-6283Ytckhgzmn department patient visitYahir Feng MD Work Phone: [phone]-Afgfhxoup Room Work Phone: Start: 61-34-1145hjlqjbzhgeRCJAEYHND M GUARDIA [facility] Hospitaltart: 03-25-2025 End: 53-13-6007xyylpnaheoTwqbnew M Hoy MD Work Phone: [facility] Work Phone: Start: 03-25-2025 End: 51-60-7735Rxtzdff encounter Urszulavalerie Macdann Freedman [facility] Work Phone: Start: 02-26-2025 End: 50-02-6679Dukkooqbi encounterIsidoro Mir MD Work Phone: OrthopaedicsStart: 01-15-2025 End: 67-45-2825Lpyupv outpatient visit 15 minutesFrsamreen Billy MD Work Phone: [facility] Medical Office BuildingComment on above: Femoroacetabular impingement of left hip (Primary Dx)Start: 01-15-2025 End: 70-51-0313myrxbtxfmkUCQKZPiedmont Newton AmbulatoryStart: 01-04-2025 End: 54-16-6716Tockfwcyrq hospital visit by Jordana Long [address] [place], [place] [address]Comment on above:Tear of left acetabular labrum, initial encounter Start: 01-04-2025 End: 81-97-2335lthjrvxxhgTXVXQ [facility] Start: 12-31-2024 End: 43-20-7203Lucjao outpatient visit 25 minutesJass Silva MD Work Phone: [facility], A Department of [facility] DaytonComment on above:Acquired hypothyroidism (Primary Dx) Start: 12-31-2024 End: 20-36-9730csbgiyxoevDWEYNHPPB M [facility] Start: 12-26-2024 End: 53-01-9362Jgckjbjal encounterMonroe Hamlin DMD, MD Work Phone: [facility] Oral SurgeryStart: 12-14-2024 End: 86-05-3525Txjtpo outpatient new 30 minutesKayode Billy MD Work Phone: [facility] HospitalComment on above:Tear of left acetabular labrum, initial encounter (Primary Dx)Start: 12-14-2024 End: 99-50-6093Tinudaonfp hospital visit by physicianEloisa Brown X-Ray 1Jewell County HospitalComment on above:Left hip painStart: 12-14-2024 End: 38-76-2350xxkioxrbrtIWZYM M [facility] Start: 09-19-2024 End: 16-70-3086drioauurmbGFZLUI GILLMORNot AvailableStart: 09-19-2024 End: 43-04-6774Ibngum outpatient visit 25 minutesSerenity Rodriguez DIRECTOR SEARCH Work Phone: aNA BELLEVUEComment on above:Hypersomnia (Primary Dx); Periodic limb movementStart: 09-19-2024 End: 73-96-1002Chvuun flowsheetSerenity Rodriguez DIRECTOR SEARCH Work Phone: aNA BELLEVUEStart: 09-19-2024 End: 46-61-9622Yexlft flowsheetAngevalerie Rodriguez DIRECTOR SEARCH Work Phone: aNA BELLEVUEStart: 09-14-2024 End: 26-06-8428ZimucbQtrphk Gillmor DIRECTOR SEARCH Work Phone: ANA BELLEVUEComment on above:HypersomniaStart: 09-12-2024 End: 01-12-2920Kwdiaqhps encounterJuluis Hamlin DMD, MD Work Phone: [facility] C[facility] ORStart: 07-04-2024 End: 67-32-7440Jhviwp outpatient visit 25 minutesRachel Camille Durham DIRECTOR SEARCH Work Phone: [facility] SWS UCComment on above:Pharyngitis, unspecified etiology (Primary Dx); Acute tonsillitis, unspecified etiologyStart: 07-04-2024 End: 10-68-1470cwjqwpxblfGWFFXZ L LEXIEOKNot AvailableStart: 06-26-2024 End: 90-64-6606Suylzs OnlyForrest Quick DMD Work Phone: [facility] Oral SurgeryStart: 06-15-2024 End: 36-15-5191IyrsryFxeauhr C Windnagel DIRECTOR SEARCH Work Phone: noMS [place] STATE ROUTEComment on above:Hypersomnia Start: 04-19-2024 End: 83-30-7528qjmdwcgereTRVTRTP C WINDNAGELNot AvailableStart: 04-19-2024 End: 40-09-1602Vzxktc outpatient visit 25 minutesFelicia C Windnagel DIRECTOR SEARCH Work Phone: NOMS [place] STATE ROUTEComment on above:Hypersomnia (Primary Dx)Start: 04-19-2024 End: 90-44-8480Ujpfyh flowsheetFelicia C Windnagel DIRECTOR SEARCH Work Phone: NOM[facility] [address] [address] ROUTEStart: 04-19-2024 End: 26-28-1556Bwvngk flowsheetFelicia C Windnagel DIRECTOR SEARCH Work Phone: N[facility] [place] ROUTEStart: 04-16-2024 End: 87-38-7972apooqxikvhTTFPPDQ PROVIDERFacility:METROHealthStart: 04-16-2024 End: 16-18-7024Ixvzjrh encounter procedureJuluis Hamlin DMD, MD Work Phone: [facility] Oral SurgeryComment on above:Abnormal tooth eruption (Primary Dx)Start: 03-22-2024 End: 41-00-0240Sqzgga outpatient visit 25 minutesFelicia C Windnagel DIRECTOR SEARCH Work Phone: NOM[facility] [place] ROUTEComment on above:Hypersomnia (Primary Dx)Start: 03-22-2024 End: 61-56-3396rcityesaulPOZMBHE C WINDNAGELNot AvailableStart: 03-22-2024 End: 54-75-5032Ksajsu flowsheetFelicia C Windnagel DIRECTOR SEARCH Work Phone: N[facility] [place] ROUTEStart: 03-22-2024 End: 20-21-9534Bgjfuh flowsheetFelicia C Windnagel DIRECTOR SEARCH Work Phone: [facility] ROUTEStart: 01-16-2024 End: 03-13-3661pqopcivfxvCHOQUT Kevin AvailableStart: 10-23-2023 End: 38-43-2115Tbaakkgtl department patient visitAl ParkFacility:[facility] Start: 10-23-2023 End: 24-66-9063Zqiogcooc department patient visitAl Park [facility] Start: 10-11-2022 End: 49-74-6728brxzwupqeyXaiqxx Dymond Other [facility] [employer] Other Start: 18-53-1679Wylwmw outpatient new 20 minutes Mariposa DupreeFPG Urgent Care ClydeStart: 08-20-2022 End: 77-89-6240qkxiyzkwogAK YAHIR HOY .Facility:B8Rrdor: 08-17-2022 End: 05-39-0611kwoasvmduaFM YAHIR HOY .Facility:Y6Aagmj: 07-21-2022 End: 86-20-0921fousyxuuewEO YAHIR HOY .Facility:C1Dstgi: 20-14-8485Qjgzhzoli for general adult medical examination without abnormal findingsDR YAHIR HOY . [facility]tart: 07-12-2022 End: 70-32-5200lpvhsrgxeaSP YAHIR HOY .Facility:J5Bpikk: 07-12-2022 End: 84-13-4722Vbcvieooo for general adult medical examination without abnormal findingsDR YAHIR HOY .Facility:F8Odksb: 06-20-2022 End: 46-76-6814qdmwjfyltqXQ YAHIR HOY .Facility:S4Pjwmn: 05-11-2019 End: 85-32-6777Qjnfeja encounter [facility] CenterStart: 05-11-2019 End: 06-24-1048Aksyifvqjh hospital visit by Nishant Wills [facility] CTRStart: 03-21-2018 End: 88-70-8424Ilskrdx encounterLAWRENCE DEQUAN LANDERSacility:[facility] Procedures DateProcedureProcedure DetailPerforming ClinicianStart: 18-22-0959Ezx any jt lower extrem w/o contrast matrlFrsamreen Billy MD Work Phone: Start: 20-57-9491Uyxyuoing hip arthrography w/o anesthesiaKayode Billy MD Work Phone: Start: 23-47-4409Pwvkz hip unilateral with pelvis 2-3 viewsFrsamreen Billy MD Work Phone: Start: 70-44-3507Apdqc streptococcus group a amplified probe tqRachel Camille Durham DIRECTOR SEARCH Work Phone: Start: 37-16-0156Ij cell mediated antign respnse gamma interferonPIERRE KNIGHT Plan of Treatment DateCare ActivityDetailAuthorStart: 54-98-8591Pmcrfirk (RZV) Vaccine (1 of 2) Shingles (RZV) Vaccine (1 of 2)[facility]roHealthStart: 95-49-4225Paxxgg Vaccines (1 of 2)Zoster Vaccines (1 of 2)[facility] HospitalStart: 04-03-2026 Adult BMI ScreeningAdult BMI ScreeningTuscarawas Hospital SystemStart: 12-31-2025 Adult BMI ScreeningAdult BMI ScreeningProFirelands Regional Medical [facility] SystemStart: 12-31-2025 Tobacco ScreeningTobacco ScreeningProFirelands Regional Medical [facility] SystemStart: 09-23-2025 End: 35-64-1197Nijevkh encounter thrwqnkqe61/06/2026 11:45 AM EDT Office Visit [facility], A Department of [facility] [address] [place] [phone] Eren Ceron MD [address] [place] [address] [facility] Adult [facility]ocr[facility]ology, A Department [facility] HospitalStart: 06-10-2025 End: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 injection hip left XR arthrogram hip left Kayode Billy MD [address] [facility], [address] [place] [address] Phone: tel: fax: Referral IDStatusReasonStart DateExpiration DateVisits RequestedVisits [id number] Review Perform Procedure [facility] Work Phone: Reason for visit Narrative* Imaging (Routine) - Pending ReviewSpecialtyDiagnoses / ProceduresReferred By ContactReferred To ContactRadiology Diagnoses Tear of left acetabular labrum, initial encounter Procedures MR hip left wo IV contrast MR arthrogram hip left Kayode Billy MD [address] [facility], [address] [place], [place] [address] Phone: tel: fax: Referral IDStatusReshantellStart DateExpiration DateVisits RequestedVisits [id number] Review Perform Procedure [facility] Work Phone: Summary Purpose Family History No Family History Records Found Relationship Condition Age at Onset Recorded Date/T jase mother Malignant neoplasm Unknown Advance Directives No Advanced Directives Records FoundDocuments on File TypeDate RecordedPatient RepresentativeExplanationAdvance Directives and Living WillPower of Financial Planner Advance Directive Response Recorded Date/ Time Advance [...] section and content) DATE CREATED AUTHOR 04/20/2018 [facility] DATE CREATED AUTHOR AUTHOR'S ORGANIZ ATION 05/14/2019 [facility] DATE CREATED AUTHOR AUTHOR'S ORGANIZ ATION 10/13/2022 [facility] DATE CREATED AUTHOR AUTHOR'S ORGANIZ ATION 10/24/2023 [facility] DATE CREATED AUTHOR AUTHOR'S ORGANIZ ATION 08/03/[address] [facility] DATE CREATED AUTHOR AUTHOR'S ORGANIZ ATION 09/22/2024 [facility] DATE CREATED AUTHOR AUTHOR'S ORGANIZ ATION 01/09/2025 [facility] DATE CREATED AUTHOR AUTHOR'S ORGANIZ ATION 01/16/2025 [facility] DATE CREATED AUTHOR AUTHOR'S ORGANIZ ATION 03/25/2025 [facility] DATE CREATED AUTHOR AUTHOR'S ORGANIZ ATION 04/02/2025 [facility] DATE CREATED AUTHOR AUTHOR'S ORGANIZ ATION 04/05/2025 [facility] DATE CREATED AUTHOR AUTHOR'S ORGANIZ ATION 04/17/2025 [facility] REASON FOR VISIT (unrecogniz ed section and content) ReasonOnset DateCommentsMed Iyexjx4306/15/2024easonOnset DateCommentsMed Refill 09/14/2024ReasonCommentsSleeping ProblemInsomniaHypersomniaReasonCommentsPain Xrays todayNew Patient [...] Active Start: April 08, 2025 End: April 08Lj Littlency ProviderActiveStart: April 08, 2025 End: April 08, 2025 Team Status: Active Member Role Status Dates Yahir Feng MD Primary Care Provider Active Team Status: Inactive Member Role Status Dates Yahir Feng MD Primary Care Provider Active Start: March 25, 2025 End: March 25shansteven MacMarleni quigley ProviderActiveStart: March 25, 2025 End: March 25, 2025Team MemberRelationshipSpecialtyStart DateEnd Date Randloph Dodson MD [address] [facility] [place] [address] PCP - General09/30/00Team MemberRelationshipSpecialtyStart DateEnd Date Generic Provider, [place] [address] PCP - GeneralGeneral Practice12/23/24Team MemberRelationshipSpecialtyStart DateEnd Date Yahir Feng MD PCP - GeneralFamily Sdmkprnd82/6/20Team MemberRelationshipSpecialtyStart DateEnd Date Monroe Hamlin DMD, MD [address] [place], [place] [id number] PhysicianOral & Maxillofacial Uzqxghn60/2/24Team MemberRelationshipSpecialty Start DateEnd Date Yahir Feng MD [address] [place] [address] PCP - GeneralFamily Medicine11/17/22 Source Comments (unrecognize d section and content) In the event this informatio n is protected by the Federal Confidentiality of Alcohol and Drug Abuse Patient Records regulations: The Federal rules restrict any use of the information to criminally investigate or prosecute any alcohol or drug abuse patient.[facility] Goals (unrecognized section and content) [...] BE BASED ON THE PRIMARY CLINICAL RECORDS. [facility]. provides no warranty or guarantee of the accuracy or completeness of information in this document.
[2025-05-31 16:49] LABS: Hematocrit 37.8 % (36.0-48.0); Hemoglobin 12.5 g/dL (12.0-16.0); Immature Granulocytes Abs Auto 0.01 10^3/uL (0.00-0.03); Immature Granulocytes Pct Auto 0.1 % (0.0-0.5); Lymphocytes Absolute Auto 2.4 10^3/uL (1.2-3.8); Mean Corpuscular HGB Conc 33.1 g/dL (29.9-35.2); Mean Corpuscular Hemoglobin 30.9 pg (26.7-34.0); Mean Corpuscular Volume 93.3 fL (81.0-99.0); Platelet Count 277 10^3/uL (150-450); Red Blood Count 4.05 10^6/uL (4.20-5.40); White Blood Count 7.7 10^3/uL (4.0-11.0)
[2025-05-31 17:05] LABS: Iron 159.0 ug/dL (50.0-170.0)
[2025-05-31 17:35] LABS: Alanine Aminotransferase 35 U/L (14-59); Albumin Globulin Ratio 1.1; Albumin Level 3.8 g/dL (3.4-5.0); Alkaline Phosphatase 83 U/L (46-116); Anion Gap 9.0; Aspartate Amino Transferase 28 U/L (15-37); Blood Urea Nitrogen 8.0 mg/dL (7.0-18.0); Calcium 8.9 mg/dL (8.5-10.1); Carbon Dioxide 28.1 mmol/L (21.0-32.0); Chloride 106 mmol/L (98-107); Cholesterol 215 mg/dL (<=200); Estimated GFR (African America >60 (>=60 mL/min/1.73m^2); Estimated GFR (Non-African Ame >60 (>=60 mL/min/1.73m^2); Free T3 1.86 pg/mL (2.18-3.98); Globulin 3.4 g/dL; Glucose 87 mg/dL (74-106); HDL Cholesterol 114 mg/dL (40-60); Potassium 4.1 mmol/L (3.5-5.1); Sodium 139 mmol/L (136-145); Thyroid Stimulating Hormone 3.449 uIU/mL (0.358-3.740); Total Protein 7.2 g/dL (6.4-8.2); Triglycerides 50 mg/dL (<=150); VLDL CHOLESTEROL 10.0 mg/dL
== END 2025-05-31 16:25 | disposition home or self-care (01) ==
PROVIDERS: PCP Family Medicine; Visit Provider Family Medicine
DX: Z00.00 Encounter for general adult medical examination without abnormal findings (principal)
CPT/HCPCS: 36415; 80053; 80061; 83036; 83540; 84436; 84443; 84481; 85025